=== PATIENT | female | born 1940 | race Caucasian/White ===

== ENCOUNTER → 2017-06-07 11:31 | Outpatient (CLI) | payer MEDICARE, OTHER, SELFPAY ==
[2017-06-07 14:36] LABS: Absolute Lymphocyte Count 1.19 X10^3/ul (0.83-4.51); Absolute Neutrophil Count 2.9 X10^3/uL (2.0-7.7); Basophil# 0.05 X10^3/uL; Basophil% 1.1 % (0-1); Eosinophil# 0.22 X10^3/uL; Eosinophils% 4.8 % (0-5); Hematocrit 38.9 % (37-47); Hemoglobin 12.8 g/dl (12.0-15.0); Lymphocyte # 1.19 X10^3/ul (4.0); Lymphocyte % 25.7 % (19-41); Mean Corp Hgb Conc 32.9 g/gl (32-36); Mean Corpuscular Hgb 30.6 pg (27.0-32.0); Mean Corpuscular Volume 93.1 fL (81-99); Mean Platelet Vol. 10.4 fl (6.2-12.0); Monocyte# 0.25 X10^3/uL; Monocyte% 5.4 % (0-10); Neutrophil # 2.91 X10^3/uL (2.7-7.7); Neutrophil % 62.8 % (47-70); Platelet Count 267 K/mm3 (150-450); RBC Distribution Width CV 13.2 % (11.6-14.6); RBC Distribution Width SD 44.4 fl (35.1-43.9); Red Blood Count 4.18 M/mm3 (4.2-5.4); White Blood Count 4.6 K/mm3 (4.4-11.0)
[2017-06-07 14:37] LABS: POSITIVE COUNT NO; POSITIVE DIFFERENTIAL NO; POSITIVE MORPHOLOGY NO
[2017-06-07 14:38] LABS: Erythrocyte Sedimentation Rate 11 mm/hr (0-30)
[2017-06-07 14:39] LABS: CRP < 2.90 mg/L (0.0-3.0); Rheumatoid Factor < 10.0 IU/mL (<15); Uric Acid 4.4 mg/dL (2.6-6.0)
[2017-06-07 15:02] LABS: PTHIN 48.9 pg/mL (18.4-80.1)
[2017-06-08 12:08] LABS: Anti-Centromere B Ab <0.2 AI (0.0-0.9); Anti-Chromatin <0.2 AI (0.0-0.9); Anti-Jo <0.2 AI (0.0-0.9); Anti-Scleroderma-70 AB <0.2 AI (0.0-0.9); RNP Ab <0.2 AI (0.0-0.9); SJOGREN'S Anti-SS-A test 7.4 AI (0.0-0.9); SJOGREN'S Anti-SS-B test < 0.2 AI (0.0-0.9); Smith Ab <0.2 AI (0.0-0.9)
[2017-06-08 14:10] LABS: Anti-dsDNA Ab <1 IU/mL (0-9)
== END ==
PROVIDERS: Family Provider Family Medicine; PCP Family Medicine; Visit Provider Family Medicine
DX: M06.4 Inflammatory polyarthropathy (principal)
CPT/HCPCS: 36415; 83970; 84550; 85025; 85652; 86140; 86225; 86235; 86431

== ENCOUNTER → 2017-06-08 10:39 | Outpatient (CLI) | payer MEDICARE, OTHER, SELFPAY ==
--- NOTE | 2017-06-08 13:44 | PFT ---
INTRODUCTION: The patient is a 76-year-old female currently under the care of myself the presents for pulmonary function testing secondary to a diagnosis of dyspnea on exertion. Respiratory therapy reports good patient effort and reports no other concerns. Bronchodilators were used during testing. INTERPRETATION: Forced expiration spirometry demonstrates the presence of a mild large airways obstructive ventilatory defect. There was a significant response to aerosolized bronchodilators noted. Spirograms are of fair quality and plateau gradually. The respiratory flow volume loop reveals decreased expiratory flow rates at all lung volumes consistent with airways obstruction. Body plethysmography was performed and reveals an elevated TLC and RV, indicative of underlying hyperinflation and air-trapping. Diffusing capacity by single breath CO is preserved at 76% of predicted. IMPRESSION: These pulmonary function studies demonstrate the presence of an irreversible mild large airways obstructive ventilatory defect with associated hyperinflation and air-trapping. There was a significant response to aerosolized bronchodilators. There are no previous pulmonary function studies available for comparison.
== END ==
PROVIDERS: Family Provider Family Medicine; PCP Family Medicine; Visit Provider Internal Medicine Critical Care Medicine
DX: R06.09 Other forms of dyspnea (principal)
CPT/HCPCS: 94060; 94726; 94729

== ENCOUNTER → 2017-07-28 13:18 | Outpatient (CLI) | payer MEDICARE, OTHER, SELFPAY ==
--- NOTE | 2017-07-28 13:32 | HPBI_ITS ---
MAMMOGRAPHY - BILATERAL SCREENING 3-D ELIUD SYNTHESIS REASON FOR EXAM: Female, 76 years old. Bilateral Screening 3-D tomosynthesis PERTINENT HISTORY: Implants, sister with breast cancer. TECHNIQUE: 2-D mammograms and 3-D Eliud synthesis of the breast (s) were performed. CAD was performed. COMPARISON: 07/27/2016 FINDINGS: The breast composition is heterogeneously dense that can obscure small breast masses. Scattered benign calcifications are seen. No dense spiculated masses or suspicious microcalcifications are identified. No architectural distortion is identified. There is no skin thickening or retraction. Implants are intact and free of complication There has been no significant change since the prior study. HPBI/SCREENING MAMM (CAD), BILAT IMPRESSION: No mammographic signs of malignancy. Routine yearly mammograms recommended. ASSESSMENT CATEGORY: BIRADS Category 2: Benign. A letter regarding these results will be sent to the patient by the facility within 30 days. FOLLOW UP RECOMMENDATION: Yearly follow up mammogram recommended. (A) Approximately 10% of breast cancers are not detected by mammography. A normal mammogram should not delay biopsy of a clinically suspicious abnormality. Electronically Signed: To Mariscal MD at 9:26 EDT , Service support ,
== END ==
PROVIDERS: Family Provider Family Medicine; PCP Family Medicine; Visit Provider Family Medicine
DX: Z12.31 Encounter for screening mammogram for malignant neoplasm of breast (principal)
CPT/HCPCS: 77063; 77067

== ENCOUNTER → 2017-08-07 14:30 | Outpatient (CLI) | payer MEDICARE, OTHER, SELFPAY ==
--- NOTE | 2017-08-07 14:35 | RAD_ITS ---
STUDY: X-RAY - PELVIS REASON FOR EXAM: Female, 76 years old. Bilateral hip and low back pain. TECHNIQUE: One view of the pelvis was obtained. COMPARISON: None. FINDINGS: There is a non-specific bowel gas pattern. There are faint pelvic calcifications which could be vascular. There are degenerative changes in the lower lumbar spine and levoscoliosis. Normal bilateral iliac wings, sacroiliac joints and visualized sacrum. Normal visualized bilateral superior and inferior pubic rami. Normal pubic symphysis. Normal ischial tuberosities. Normal visualized right femoral head. Normal right acetabulum. Normal right hip joint. Normal visualized left femoral head. Normal left acetabulum. There is mild articular joint space narrowing of the left hip. RAD/Pelvis 1 or 2 Views IMPRESSION: Degenerative changes in the lower lumbar spine. Mild narrowing of the left hip joint. Electronically Signed: Amado Prince MD at 3:59 EDT Tel , Service support ,
[2017-08-07 15:35] LABS: Absolute Lymphocyte Count 1.32 X10^3/ul (0.83-4.51); Absolute Neutrophil Count 2.9 X10^3/uL (2.0-7.7); Basophil# 0.03 X10^3/uL; Basophil% 0.7 % (0-1); Eosinophil# 0.17 X10^3/uL; Eosinophils% 3.7 % (0-5); Hematocrit 36.9 % (37-47); Hemoglobin 11.9 g/dl (12.0-15.0); Lymphocyte # 1.32 X10^3/ul (4.0); Lymphocyte % 28.7 % (19-41); Mean Corp Hgb Conc 32.2 g/gl (32-36); Mean Corpuscular Hgb 29.7 pg (27.0-32.0); Monocyte# 0.17 X10^3/uL; Monocyte% 3.7 % (0-10); Platelet Count 264 K/mm3 (150-450); RBC Distribution Width CV 13.2 % (11.6-14.6); RBC Distribution Width SD 44.1 fl (35.1-43.9); Red Blood Count 4.01 M/mm3 (4.2-5.4); White Blood Count 4.6 K/mm3 (4.4-11.0)
[2017-08-07 15:44] LABS: POSITIVE COUNT NO; POSITIVE DIFFERENTIAL NO; POSITIVE MORPHOLOGY NO
[2017-08-07 16:03] LABS: ALB/GLOB Ratio 1.1 RATIO (0.9-2.4); AST(SGOT) 20 U/L (15-37); Alanine Aminotransfer ALT/SGPT 23 U/L (13-56); Albumin, Serum 3.8 g/dL (3.2-5.0); Alkaline Phosphatase 66 U/L (45-117); Anion Gap 9 (5-15); BUN 14 mg/dL (7-18); BUN/Creat Ratio 16.6 RATIO (10-20); Calcium,Total 9.4 mg/dL (8.5-10.1); Chloride 104 mmol/L (98-107); Creatinine, Serum 0.84 mg/dL (0.55-1.02); EST Glomerular Filtration Rate 70 mL/min (>60); Est Glom Filt Rate - Afr Amer 84 mL/min (>60); Globulin 3.5 g/dL (2.2-4.2); Glucose 98 mg/dL (74-106); Potassium 3.8 mmol/L (3.5-5.1); Protein, Total 7.3 g/dL (6.4-8.2); Rheumatoid Factor < 10.0 IU/mL (<15); Sodium Level 142 mmol/L (136-145)
[2017-08-09 15:20] LABS: ANTINUCLEAR ANTIBODIES DIRECT Positive (Negative)
[2017-08-15 11:25] LABS: CCP IgG Antibodies 3 units (0-19); HEPATITIS B SURFACE AG Negative (Negative); HLA B27 Negative (.); Hep B Surface Antibodies Reactive (.); Hep C Antibodies <0.1 s/co ratio (0.0-0.9)
== END ==
PROVIDERS: Family Provider Family Medicine; PCP Family Medicine; Visit Provider Internal Medicine Rheumatology
DX: M06.4 Inflammatory polyarthropathy (principal); M35.00 Sjogren syndrome, unspecified; M51.37 Other intervertebral disc degeneration, lumbosacral region; E78.5 Hyperlipidemia, unspecified; J44.9 Chronic obstructive pulmonary disease, unspecified; N39.46 Mixed incontinence
CPT/HCPCS: 36415; 72170; 80053; 81374; 85025; 86038; 86200; 86431; 86706; 86803; 87340

== ENCOUNTER → 2017-10-12 07:43 | Outpatient (CLI) | payer MEDICARE, OTHER, SELFPAY ==
--- NOTE | 2017-10-12 07:43 | DT_ITS ---
This patient was seen during an EMR downtime October 09, 2017 - October 16, 2017. This patient may have a combination of paper and electronic documentation or all paper documentation. All documentation is viewable within the e-chart portion of [employer] for each patient visit.
--- NOTE | 2017-10-12 07:47 | CT_ITS ---
STUDY: CT BRAIN WITHOUT CONTRAST REASON FOR EXAM: Female, 76 years old. Chronic headache, right hemiplegia RADIATION DOSAGE (If Supplied By Facility): CTDIvol = ( 44.99 ) mGy, DLP = ( 745.49 ) mGycm TECHNIQUE: Transaxial CT imaging of the brain was performed without administration of intravenous contrast material. Individualized dose optimization techniques were used for this CT. COMPARISON: None. FINDINGS: The soft tissues are unremarkable. The osseous structures are unremarkable. Normal size ventricles and extra-axial spaces for the patient's age. The white matter tracts are unremarkable. The basal ganglia and thalami are unremarkable. No abnormalities are seen in the brainstem. The cerebellum is unremarkable. There is no intracranial hemorrhage. There are no findings of acute ischemia. The visualized sinuses are unremarkable. CT/Brain/Head without Contrast IMPRESSION: No acute intracranial abnormalities. Electronically Signed: Haleigh Freire MD at 11:37 EDT Tel Direct: [phone], Service support ,
== END ==
PROVIDERS: Family Provider Family Medicine; PCP Family Medicine; Visit Provider Family Medicine
DX: G43.409 Hemiplegic migraine, not intractable, without status migrainosus (principal)
CPT/HCPCS: 70450

== ENCOUNTER → 2017-10-16 11:02 | Outpatient (CLI) | payer MEDICARE, OTHER, SELFPAY ==
--- NOTE | 2017-10-16 11:02 | DT_ITS ---
This patient was seen during an EMR downtime October 09, 2017 - October 16, 2017. This patient may have a combination of paper and electronic documentation or all paper documentation. All documentation is viewable within the e-chart portion of [employer] (acquired by [employer] in 2014) for each patient visit.
[2017-10-16 12:30] LABS: Absolute Lymphocyte Count 1.12 X10^3/ul (0.83-4.51); Basophil# 0.01 X10^3/uL; Basophil% 0.3 % (0-1); Eosinophil# 0.16 X10^3/uL; Eosinophils% 4.6 % (0-5); Hematocrit 38.9 % (37-47); Hemoglobin 12.6 g/dl (12.0-15.0); Lymphocyte # 1.12 X10^3/ul (4.0); Lymphocyte % 32.2 % (19-41); Mean Corp Hgb Conc 32.4 g/gl (32-36); Mean Corpuscular Hgb 29.8 pg (27.0-32.0); Mean Platelet Vol. 9.7 fl (6.2-12.0); Monocyte# 0.22 X10^3/uL; Monocyte% 6.3 % (0-10); Neutrophil # 1.97 X10^3/uL (2.7-7.7); Neutrophil % 56.6 % (47-70); Platelet Count 274 K/mm3 (150-450); RBC Distribution Width SD 46.3 fl (35.1-43.9); Red Blood Count 4.23 M/mm3 (4.2-5.4); White Blood Count 3.5 K/mm3 (4.4-11.0)
[2017-10-16 12:40] LABS: POSITIVE COUNT NO; POSITIVE DIFFERENTIAL NO; POSITIVE MORPHOLOGY NO
[2017-10-16 12:58] LABS: ALB/GLOB Ratio 1.1 RATIO (0.9-2.4); AST(SGOT) 19 U/L (15-37); Alanine Aminotransfer ALT/SGPT 24 U/L (13-56); Albumin, Serum 3.9 g/dL (3.2-5.0); Alkaline Phosphatase 69 U/L (45-117); Anion Gap 7 (5-15); BUN 16 mg/dL (7-18); BUN/Creat Ratio 18.5 RATIO (10-20); Calcium,Total 8.8 mg/dL (8.5-10.1); Chloride 109 mmol/L (98-107); Creatinine, Serum 0.87 mg/dL (0.55-1.02); EST Glomerular Filtration Rate 68 mL/min (>60); Est Glom Filt Rate - Afr Amer 82 mL/min (>60); Globulin 3.5 g/dL (2.2-4.2); Glucose 84 mg/dL (74-106); Protein, Total 7.4 g/dL (6.4-8.2); Sodium Level 146 mmol/L (136-145)
== END ==
PROVIDERS: Family Provider Family Medicine; PCP Family Medicine; Visit Provider Internal Medicine Rheumatology
DX: M06.4 Inflammatory polyarthropathy (principal); M35.00 Sjogren syndrome, unspecified; M51.37 Other intervertebral disc degeneration, lumbosacral region; E78.5 Hyperlipidemia, unspecified; J44.9 Chronic obstructive pulmonary disease, unspecified; N39.46 Mixed incontinence
CPT/HCPCS: 36415; 80053; 85025

== ENCOUNTER → 2018-01-15 10:29 | Outpatient (CLI) | payer MEDICARE, OTHER, SELFPAY ==
[2018-01-15 12:43] LABS: Absolute Lymphocyte Count 1.07 X10^3/ul (0.83-4.51); Basophil# 0.02 X10^3/uL; Basophil% 0.4 % (0-1); Eosinophil# 0.21 X10^3/uL; Eosinophils% 4.5 % (0-5); Hematocrit 38.1 % (37-47); Hemoglobin 12.4 g/dl (12.0-15.0); Lymphocyte # 1.07 X10^3/ul (4.0); Lymphocyte % 22.8 % (19-41); Mean Corp Hgb Conc 32.5 g/gl (32-36); Mean Corpuscular Hgb 30.8 pg (27.0-32.0); Mean Corpuscular Volume 94.5 fL (81-99); Mean Platelet Vol. 10.4 fl (6.2-12.0); Monocyte# 0.39 X10^3/uL; Monocyte% 8.3 % (0-10); Neutrophil # 2.99 X10^3/uL (2.7-7.7); Neutrophil % 63.6 % (47-70); Platelet Count 266 K/mm3 (150-450); RBC Distribution Width CV 12.9 % (11.6-14.6); RBC Distribution Width SD 43.4 fl (35.1-43.9); Red Blood Count 4.03 M/mm3 (4.2-5.4); White Blood Count 4.7 K/mm3 (4.4-11.0)
[2018-01-15 12:58] LABS: POSITIVE COUNT NO; POSITIVE DIFFERENTIAL NO; POSITIVE MORPHOLOGY NO
[2018-01-15 13:19] LABS: ALB/GLOB Ratio 1.1 RATIO (0.9-2.4); AST(SGOT) 23 U/L (15-37); Alanine Aminotransfer ALT/SGPT 23 U/L (13-56); Albumin, Serum 3.9 g/dL (3.2-5.0); Alkaline Phosphatase 68 U/L (45-117); Anion Gap 8 (5-15); BUN 17 mg/dL (7-18); BUN/Creat Ratio 19.4 RATIO (10-20); Calcium,Total 9.2 mg/dL (8.5-10.1); Chloride 106 mmol/L (98-107); Creatinine, Serum 0.88 mg/dL (0.55-1.02); EST Glomerular Filtration Rate 67 mL/min (>60); Est Glom Filt Rate - Afr Amer 81 mL/min (>60); Globulin 3.7 g/dL (2.2-4.2); Glucose 85 mg/dL (74-106); Potassium 3.9 mmol/L (3.5-5.1); Protein, Total 7.6 g/dL (6.4-8.2); Sodium Level 142 mmol/L (136-145)
== END ==
PROVIDERS: Family Provider Family Medicine; PCP Family Medicine; Visit Provider Internal Medicine Rheumatology
DX: M06.4 Inflammatory polyarthropathy (principal); M35.00 Sjogren syndrome, unspecified; M51.37 Other intervertebral disc degeneration, lumbosacral region; E78.5 Hyperlipidemia, unspecified; J44.9 Chronic obstructive pulmonary disease, unspecified; N39.46 Mixed incontinence; Z79.899 Other long term (current) drug therapy
CPT/HCPCS: 36415; 80053; 85025

== ENCOUNTER → 2018-03-19 10:28 | Outpatient (CLI) | payer MEDICARE, OTHER, SELFPAY ==
[2018-03-19 12:18] LABS: Absolute Lymphocyte Count 1.11 X10^3/ul (0.83-4.51); Absolute Neutrophil Count 1.9 X10^3/uL (2.0-7.7); Basophil# 0.02 X10^3/uL; Basophil% 0.6 % (0-1); Eosinophil# 0.15 X10^3/uL; Eosinophils% 4.3 % (0-5); Hemoglobin 12.3 g/dl (12.0-15.0); Lymphocyte # 1.11 X10^3/ul (4.0); Lymphocyte % 31.7 % (19-41); Mean Corp Hgb Conc 31.5 g/gl (32-36); Mean Corpuscular Hgb 29.6 pg (27.0-32.0); Mean Platelet Vol. 10.1 fl (6.2-12.0); Monocyte# 0.28 X10^3/uL; Neutrophil # 1.93 X10^3/uL (2.7-7.7); Neutrophil % 55.1 % (47-70); Platelet Count 263 K/mm3 (150-450); RBC Distribution Width CV 13.4 % (11.6-14.6); RBC Distribution Width SD 45.9 fl (35.1-43.9); Red Blood Count 4.15 M/mm3 (4.2-5.4); White Blood Count 3.5 K/mm3 (4.4-11.0)
[2018-03-19 12:32] LABS: POSITIVE COUNT NO; POSITIVE DIFFERENTIAL NO; POSITIVE MORPHOLOGY NO
[2018-03-19 12:43] LABS: AST(SGOT) 21 U/L (15-37); Alanine Aminotransfer ALT/SGPT 29 U/L (13-56); Albumin, Serum 3.8 g/dL (3.2-5.0); Alkaline Phosphatase 62 U/L (45-117); Anion Gap 9 (5-15); BUN 15 mg/dL (7-18); BUN/Creat Ratio 17.3 RATIO (10-20); Calcium,Total 9.2 mg/dL (8.5-10.1); Chloride 106 mmol/L (98-107); Creatinine, Serum 0.87 mg/dL (0.55-1.02); EST Glomerular Filtration Rate 68 mL/min (>60); Est Glom Filt Rate - Afr Amer 82 mL/min (>60); Globulin 3.7 g/dL (2.2-4.2); Glucose 86 mg/dL (74-106); Potassium 4.2 mmol/L (3.5-5.1); Protein, Total 7.5 g/dL (6.4-8.2); Sodium Level 144 mmol/L (136-145)
== END ==
PROVIDERS: Family Provider Family Medicine; PCP Family Medicine; Referring Provider Internal Medicine Rheumatology; Visit Provider Internal Medicine Rheumatology
DX: M06.4 Inflammatory polyarthropathy (principal); Z79.899 Other long term (current) drug therapy; M35.00 Sjogren syndrome, unspecified; M51.37 Other intervertebral disc degeneration, lumbosacral region; E78.5 Hyperlipidemia, unspecified; J44.9 Chronic obstructive pulmonary disease, unspecified; N39.46 Mixed incontinence
CPT/HCPCS: 36415; 80053; 85025

== ENCOUNTER → 2018-04-17 09:44 | Outpatient (CLI) | payer MEDICARE, OTHER, SELFPAY ==
[2017-10-31 10:11] VITALS: BMI 23.8
--- NOTE | 2018-04-17 16:25 | PFTCOMP_ITS ---
COMPLETE PULMONARY FUNCTION TEST INTERPRETATION Brief HPI: Patient is a 77 year old female, currently under the care of myself, who presents to [facility] for complete pulmonary function tests secondary to diagnosis of COPD. Respiratory therapist reports good effort and reproducible results. Interpretation: Forced expiration spirometry shows a mild large airways obstructive ventilatory defect with an FEV1 of 81% predicted. There is no significant bronchodilator response by strict ATS criteria. Spirograms are of good quality and plateau slowly, indicating slowly emptying areas of the lungs. The respiratory flow volume loop shows decreased expiratory flow rates at all lung volumes consistent with airway obstruction. Lung volumes by body plethysmography show an elevated total lung capacity at 5.49 L, 120% predicted. All other lung volumes are increased symmetrically. Diffusion capacity by carbon monoxide is normal at 81% predicted. The airway resistance is elevated. Compared to previous pulmonary function tests from June 08, 2017, there has been no significant change. Impression: Irreversible mild large airways obstructive ventilatory defect.
--- OUTSIDE RECORDS SUMMARY | 2018-06-03 09:05 | XMS RPT_ITS ---
:1940 Author Organization OHIP Support Name Relationship Address Phone ELIA RIVERA Unavailable [address] + [place] [address] R Unavailable Unavailable Unavailable BOVLEÓN CHILDRESSRY Unavailable [address] + [place] [address] R Unavailable Unavailable Unavailable BOVMONROE ELIA Unavailable [address] + [place] [address] R Unavailable Unavailable Unavailable BOVILLE ELIA Unavailable [address] + [place] [address] R Unavailable Unavailable Unavailable BOVILLE ELIA Unavailable [address] + [place] [address] R Unavailable Unavailable Unavailable BOVILLE ELIA Unavailable [address] + [place] [address] R Unavailable Unavailable Unavailable BOVILLE ELIA Unavailable [address] + [place] [address] R Unavailable Unavailable Unavailable BOVILLE ELIA Unavailable [address] + [place] [address] R Unavailable Unavailable Unavailable BOVILLE ELIA Unavailable [address] + [place] [address] R Unavailable Unavailable Unavailable BOVILLE ELIA Unavailable [address] + [place] [address] R Unavailable Unavailable Unavailable BOVILLE ELIA Unavailable [address] + [place] [address] R Unavailable Unavailable Unavailable BOVILLE ELIA Unavailable [address] + [place] [address] R Unavailable Unavailable Unavailable BOVILLE ELIA Unavailable . + [place] [address] R Unavailable Unavailable Unavailable BOVILLE, ELIA Unavailable Unavailable + R Unavailable Unavailable Unavailable BOVILLE, ELIA Unavailable . + [place] [address] R Unavailable Unavailable Unavailable BOVILLE, ELIA Unavailable Unavailable + R Unavailable Unavailable Unavailable ASIA MARCELINO Unavailable . [phone] [place] [address] R Unavailable Unavailable Unavailable R Unavailable Unavailable Unavailable Care Team Providers Name Role Phone Kaykay Parr Attending Unavailable Perez, Ze Referring Unavailable WarrenNasir borja Attending Unavailable Warren, Nasir Referring Unavailable Jean Marie Crump D.O. Attending Unavailable Perez, Ze Referring Unavailable Jean Marie Crump D.O. Attending Unavailable Perez, Ze Primary Care Unavailable Perez, Ze Attending Unavailable Perez, Ze Primary Care Unavailable Perez, Ze Primary Care Unavailable Barnett, Fabio Attending Unavailable Kaykay Parr Attending Unavailable Perez, Ze Referring Unavailable Jean Marie Crump D.O. Attending Unavailable Jean Marie Crump D.O. Referring Unavailable Perez, Ze Attending Unavailable Perez, Ze Primary Care Unavailable Perez, Ze Referring Unavailable Kaykay Parr Attending Unavailable Perez, Ze Referring Unavailable Vellanki, Destiny Attending Unavailable Vellanki, Destiny Referring Unavailable Perez, Ze Primary Care Unavailable Perez, Ze Attending Unavailable Perez, Ze Referring Unavailable Perez, Ze Primary Care Unavailable Vellanki, Destiny Attending Unavailable Vellanki, Destiny Referring Unavailable Perez, Ze Primary Care Unavailable Jean Marie Crump D.O. Attending Unavailable Perez, Ze Referring Unavailable Vellanki, Destiny Attending Unavailable Vellanki, Destiny Referring Unavailable Perez, Ze Primary Care Unavailable Vellanki, Destiny Attending Unavailable Vellanki, Destiny Referring Unavailable Perez, Ze Primary Care Unavailable Nasir Kelley Attending Unavailable Warren, Nasir Referring Unavailable Perez, Ze Primary Care Unavailable PROBLEMS PROBLEMS DATE TYPE CONDITION / CODE ATTENDING STATUS SOURCE 05/05/2018 Unknown S93.491A - Sprain of Barnett, Fabio Active [facility] other ligament of [facility] right ankle, initial Hospital encounter / Repository S93.491A(ICD-10) 04/24/2018 Unknown R05 - Cough / Parr, Active [facility] R05(ICD-10) [facility] Repository 04/24/2018 Unknown R09.82 - Postnasal Parr, Active [facility] drip / R09.82(ICD-10) [facility] Repository 04/26/2018 Unknown J44.9 - Chronic W[place] Nasir Active [facility] obstructive pulmonary Community disease, unspecified Hospital / J44.9(ICD-10) Repository 03/19/2018 Unknown 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 / Community M06.4(ICD-10) Hospital Repository 03/19/2018 Unknown M35.00 - Sicca Destiny Caban Active [facility] syndrome, unspecified Community / M35.00(ICD-10) Hospital Repository 03/19/2018 Unknown M51.37 - Other Destiny Caban Active [facility] intervertebral disc Community degeneration, Hospital lumbosacral region / Repository M51.37(ICD-10) 03/19/2018 Unknown E78.5 - Destiny Caban Active [facility] Hyperlipidemia, Community unspecified / Hospital E78.5(ICD-10) Repository 03/19/2018 Unknown 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 Community exposure to Hospital environmental tobacco Repository smoke (acute) (chronic) / Z77.22(ICD-10) 06/08/2017 Unknown R06.09 - Other forms Jean Marie Crump Active [facility] of dyspnea / D.O. Community R06.09(ICD-10) Hospital Repository 05/31/2017 Unknown A31.0 - Pulmonary Jean Marie Crump, Active [facility] mycobacterial D.O. Community infection / Hospital A31.0(ICD-10) Repository PROCEDURES PROCEDURES No Procedure Records FoundRESULTS RESULTS EMERGENCY DEPARTMENT Observed: 05/05/2018 Status: F Source: [facility] SUMMARY 8:06 PM [facility] HOSPITAL REPOSITORY [facility] Medical Records Department [address] [place] [address] Emergency Department Summary 05/05/181917 MR#: [id number] Acct: [id number] Name: BENJY RIVERA Rep #: [id number] : 1940 77 From: Fabio Barnett MD PCP: Ze Perez MD Status: REG ER - ER Visit Summary Date of Service: 05/05/18 Chief Complaint: Pain right ankle and foot status post plantar inversion mechanism injury History of Present Illness: The patient is a 77 F who had a plantar inversion mechanism injury and complains of lateral right lower extremity pain that she localizes over the ankle/foot. She denies prior history of trauma. She is unable to bear weight. She states she took 2 Tylenol with no effect. She denies paresthesia, anesthesia motor weakness. Physical Examination: Vital signs noted and blood pressure is slightly elevated 123/88. DP and PT pulses are palpable. There is pain palpation over the distal 3 cm of the lateral malleolus. Is no pain the patient over the medial malleolus. Is elected with drawer testing. There is pain abrasion over the anterior talofibular ligament. There is no pain the patient base of fifth metatarsal. Test Results: Three-view x-ray of the ankle was interpreted by me as negative for fracture, subluxation or dislocation. There is no evidence of fracture at the base of the fifth metatarsal either. Emergency Department Course and Treatment: Patient was medicated with Zofran 4 mg ODT and 1 [place] tablet. X-ray was obtained to evaluate for fracture. Treatment Plan: Antiemetic, oral analgesia and Aircast Disposition: Discharged to home Impression: Anterior talofibular ligament right ankle sprain This note was generated with ID Watchdog dictation software. It may contain incorrect words, spelling, and punctuation that were not noted in review of the chart prior to signing ED Disposition - Plan for ED Patient: Disposition: Home or Assisted Living Chief Complaint: Lower Extremity Injury Instructions: ED Sprain Ankle W X Ray Prescriptions: Hydrocodone Bitart/Apap 5-325 [[place] 5MG-325MG] 1 tab PO Q6H PRN PRN 3 Days #10 tab PRN Reason: Pain Ondansetron [Zofran Odt] 4 mg PO Q8H PRN PRN #10 tab PRN Reason: Nausea Referrals: Ze Perez MD [Primary Care Provider] - 1 Week if not improving Additional Instructions: Apply ice 6-8 times a day for 20-30 minutes for the next 2- 3 days. Remove the Aircast to draw the alphabet with your foot 4-6 times a day for the next 5- 7 days. What to do if you have Problems For any increased pain, shortness of breath, bleeding, nausea or vomiting, chest pain, or any unexpected problems, contact your Primary Care Provider. Call [facility] ([phone]) or report to the closest Emergency Room. Call 911 if necessary. 05/05/182005 <Electronically signed by Fabio Barnett MD> Date Fabio Barnett MD Cosigner Signature (If Indicated): Date CC: Ze Perez MD ANKLE MIN 3 VIEWS Observed: 05/05/2018 Status: F Source: [place] 7:13 PM [facility] REPOSITORY [facility] Imaging Services [address] [place] [address] Ankle min 3 Views MR#: [id number] Acct: [id number] Name: BENJY RIVERA Rep #: [id number] : 1940 F 77 From: Armando Ramirez MD PCP: Ze Perez MD Status: REG ER Study: Ankle min 3 Views Date of Exam: 05/05/18 Exam# [id number] Ordering Dr: Fabio Barnett MD STUDY: X-RAY - RIGHT ANKLE REASON FOR EXAM: Female, 77 years old. Fall. Pain. TECHNIQUE: 3 view(s) of the ankle. COMPARISON: None. FINDINGS: Normal visualized distal tibia and fibula. Normal medial and lateral malleoli. Normal tibiotalar articulation and ankle mortise. Normal visualized talus and calcaneus. The visualized subtalar, talonavicular, calcaneocuboid and tarsal articulations are normal. The soft tissue structures are unremarkable. RAD/Ankle min 3 Views IMPRESSION: No acute abnormality. Electronically Signed: Armando Ramirez MD at 21:05 EST , Service support , CC: Ze Perez MD; Fabio Barnett MD [employer] Faculty Member: Signed PULMONARY VISIT REPORT Observed: 04/24/2018 Status: F Source: [place] 10:24 AM [facility] REPOSITORY [facility] of [address] [place] [address] OFFICE VISIT Date of Service: 04/24/18 MR#: [id number] Acct: [id number] Name: BENJY RIVERA Rep #: [id number] : 1940 Provider: Kaykay Parr Age/Sex: 77/F Location: [facility].PM[facility] Status: Signed Assessment AND Plan 1. Stage 1 mild COPD by GOLD classification J44.9 Plan Does not appear to be an exacerbation of COPD today. No need for prednisone or antibiotic. Continue current maintenance medication. No additional testing at this time. Contact the office for any new or worsening symptoms. An acute visit and typically be arranged within 1-2 days. Follow-up in 6 months. No influenza vaccination current. 2. PND (post-nasal drip) R09.82 Plan Postnasal drip present on exam, patient states that she deals with this quite regularly. Encouraged to try Flonase [id number], she declined at this time. Hendricks's performed in the office today to rule out the possibility that prednisone may be necessary to help treat this cough. Plan Detail Other Orders Orders: Follow Up 6 Months (DMB) HPI 6 M FU: Chief Complaint: Shortness of breath on exertion HPI Comments Details: This is a 77 year old F, currently under the care of Ze Perez MD, here today to review test results. She presents to the office today ambulatory and currently in room air. She has not required any antibiotics or prednisone for any breathing problems. She states that she had a cold a few weeks ago but was able to overcome the cold without being seen by the physician or requiring medications. She has not been to the ED or urgent care for respiratory illnesses. She continues to experience shortness of breath on exertion only, denies any shortness of breath with rest or conversation. This has not worsened in any degree. She has an occasional nonproductive cough, denies any sputum production or hemoptysis. She denies any wheezing, chest tightness, chest pain or palpitations. She is not experience any fever, chills or body aches. She is compliant with the alto daily. She has not felt the need to use her Ventolin rescue inhaler. She states that her shortness of breath on exertion completely resolved with a few moments of rest. She has not tried any [id number] medications to treat her symptoms. She does report that recently when she put her Sp tree up she noticed that getting the Sp tree and decorations out of storage caused some type of irritation which increased the frequency of her cough. She did not use any additional medications for this more frequent cough. She did not use her Ventolin inhaler. I personally reviewed the tests/images/tracings which showed: Complete Pulmonary Function test were preformed on April 17, 2018, and showed FVC of 97% of predicted, FEV1 of 80% of predicted, FEV1/FVC ratio of 61 % of predicted , TLC of 120% of predicted, RV of 148% of predicted, DLCO 81 percent of predicted. The test was interpreted to be consistent with irreversible mild large airway obstructive ventilatory defect. Intake Vital Signs04/24/18 Height 5 ft 5 in 04/24/18 Weight: 146 lb Intake Visit Reasons: 6 M FU Accompanied by: Self Allergies prochlorperazine [From Compazine] Allergy (Severe, Verified 04/24/18 09:32) Other - unable to breathe Sulfa (Sulfonamide Antibiotics) Allergy (Mild, Verified 04/24/18 09:32) Nausea prescription pain meds Allergy (Mild, Uncoded 04/24/18 09:32) Nausea/Vom/Diarrhea/Lightheadedness codeine phosphate Allergy (Unknown, Uncoded 04/24/18 09:32) Unknown Medications acetylcysteine (bulk) powder See Rx Instructions MISCELLANEOUS BID g 05/24/17 [History Confirmed 04/24/18] ascorbic acid (vitamin C) 500 mg capsule 250 mg PO QDAY ea 05/24/17 [History Confirmed 04/24/18] calcium citrate 200 mg (950 mg) tablet 200 mg PO BID tab 05/24/17 [History Confirmed 04/24/18] cholecalciferol (vitamin D3) 1,000 unit capsule 1,000 unit PO ONCE 05/24/17 [History Confirmed 04/24/18] famciclovir 125 mg tablet 125 mg PO BID 05/24/17 [History Confirmed 04/24/18] magnesium oxide 400 mg capsule 400 mg PO QDAY cap 05/24/17 [History Confirmed 04/24/18] pravastatin 20 mg tablet 20 mg PO QHS 05/24/17 [History Confirmed 04/24/18] tolterodine ER 4 mg capsule,extended release 24 hr 4 mg PO QDAY 05/24/17 [History Confirmed 04/24/18] albuterol sulfate HFA 90 mcg/actuation aerosol inhaler 2 puff INHALATION Q4H PRN #18 g 06/29/17 [Rx Confirmed 04/24/18] methotrexate sodium 2.5 mg tablet 15 mg PO QWEEK tab 10/31/17 [History Confirmed 04/24/18] tiotropium 2.5 mcg-olodaterol 2.5 mcg/actuation mist for inhalation 2 puff INHALATION Q24H #4 g 10/31/17 [Rx Confirmed 04/24/18] leucovorin calcium 15 mg tablet 15 mg PO .Q Monday tab 11/07/17 [History Confirmed 04/24/18] PFS Medical History Secondhand smoke exposure (Chronic) Atypical mycobacterial infection of lung (Resolved) CAMEJO (dyspnea on exertion) (Chronic) Atypical mycobacterial infection (Acute) Caregiver stress (Acute) Myalgia and myositis (Acute) Right upper quadrant pain (Acute) COPD (chronic obstructive pulmonary disease) (Chronic) Hypercholesteremia (Chronic) Irritable bowel syndrome with constipation (Chronic) Lactose intolerance (Chronic) Lumbar degenerative disc disease (Chronic) Osteopenia (Chronic) Surgical History D AND C (Resolved) H/O breast biopsy (Resolved) H/O colonoscopy (Resolved) H/O laminectomy (Resolved) H/O total hysterectomy (Resolved) History of lung biopsy (Resolved) History of tonsillectomy (Resolved) Family History Grandmother Hypertension CHF (congestive heart failure) Daughter cardiac ablation Grandfather Lung cancer Alcohol abuse Father Alcohol abuse Lung cancer Sister CAD (coronary artery disease) Brother Suicide Son Suicide HCV (hepatitis C virus) IV drug user Aunt Heart disease Breast cancer Bladder cancer Uncle Heart disease Hypertension Cancer Mother Bladder cancer Brother CAD (coronary artery disease) Brother Heart disease Hypertension Diabetes Alcohol abuse Anger Sister Hypertension Heart disease Breast cancer Arthritis Anger Sister Breast cancer Bladder cancer Son Diabetes Heart disease Son Hypertension Daughter Rheumatoid arthritis Migraine Sister Hypertension CVA (cerebral vascular accident) 2015 Migraine Social History pets and animals: Yes pets and animals: dog(s) Smoking Status: Never smoker alcohol intake: current alcohol intake frequency: holidays/special occasions only Alcohol type: wine substance use type: does not use Review of Systems Const CONSTITUTIONAL: Negative anorexia, body ache, chills, daytime sleepiness, fever(s), night sweats, oral thrush, stops breathing during sleep, weight loss, sleeping in chair, fatigue, weight loss, weight gain, frequent colds, seasonal allergies, other, headache(s) or orthopnea EETM Ear Nose Throat Mouth: Positive hoarseness, nasal discharge and post nasal drip; negative hard of hearing, hearing normal, dry mouth in morning, change in vision, itchy eyes, eye pain, swallowing Difficulty, ear pain, nose bleed, headache(s), mouth pain, nasal congestion, sinus pain, sinus pressure, sore throat or other Cardio Cardiovascular: Negative chest pain, chest pain at rest, chest pain with activity, irregular heart rhythm, edema, shortness of breath when lying down, palpitations, murmur or other Resp Respiratory: Positive as per HPI, shortness of breath shortness of breath: Positive with activity and cough cough: Positive non-productive; negative pain with cough, wheezing, chest congestion, chest tightness, pain on inspiration, inhalers, increase use of rescue inhalers, snoring, apnea or other Gastro Gastrointestional: Negative bloody stools, change in appetite, difficulty swallowing, reflux, hematemesis, melena stool, loose stool, constipation or other Genitourinary: Negative blood in urine, nocturia, pain with urination or other Musc Musculoskeletal: Negative body pain, back pain, neck pain or other Skin/Breast Skin/Breast: Negative dry skin, itching, rash, unusual bruising, breast lump or other Neuro Neurological: Negative restless legs, confusion, weakness or other Psych Psychocological: Positive anxiety; negative abnormal sleep pattern, thoughts of hurting self/others, hopelessness or other Lymph Lymphatic: Negative easy bleeding, easy bruising, swollen lymph nodes or other Exam Const Constitutional: Positive conversant, cooperative, in no acute respiratory distress, healthy appearing, well developed, well nourished and good hygiene Head Head: Positive normocephalic and atraumatic; negative cyanosis of lips/distal nose Eyes Eye: Positive clear conjunctiva; negative nystagmus or scleral abnormality Ears Ear: Positive external ears normal; negative hard of hearing or hearing normal Nose Nose: Positive external nose normal and no nasal discharge; negative epistaxis Mouth Mouth: Positive post nasal drip, oral mucosae normal, no lesions, good dentition and crowded posterior oropharynx; negative malodorous breath or oral thrush present Mallampati Score: III: Mallampati Score Neck Neck: Positive normal visual inspection, full ROM and trachea midline; negative lymphadenopathy, JVD or tender Chest Wall Chest: Positive normal inspection of the chest and symmetric chest movement; negative increased A/P diameter Resp lung sounds: Positive clear to auscultation, good air exchange, normal expiratory time and normal respiratory effort; negative diminished, wheezes, rhonchi, rales, dullness to percussion or wheeze present on forced exhalation Cardio Cardiac: Positive regular rate, regular rhythm, S1 normal and S2 normal; negative murmur GI GI: Positive normal to inspection; negative distended Genitourinary: Positive deferred Musc Musculoskeletal: Positive steady gait and ROM normal; negative kyphosis or scoliosis Skin Pulmonary Skin Exam: Positive intact; negative rash or lesion Pulses Pulse: Yes pulses normal x4 extremities Extremities Extremities: Yes capillary refill normal, No clubbing, No cyanosis, No edema Neuro Neurologic: Yes conversant, Yes no focal neuro deficits, Yes normal concentration, Yes understands questions, Yes cooperative, Yes normal cognition, Yes normal coordination, No tremor Lymph Lymphatic: No lymphadenopathy, No tenderness, No cervical adenopathy Psych Appearance: Positive grossly normal, eye contact and well kempt Mental Status: Positive mental status grossly normal Mood: Positive congruent mood Affect: Positive normal affect Office Procedures NIOX NIOX Result NIOX: 14 Coding Level of Care Code Off vis,est,level 3 Diagnoses Stage 1 mild COPD by GOLD classification J44.9 PND (post-nasal drip) R09.82 04/24/18 1024 <Electronically signed by Kaykay GOULDC> Date Kaykay Parr NP-C Cosigner Signature: Date (if applicable) CC: Ze Perez MD PULMONARY FUNCTION Observed: 04/18/2018 Status: F Source: [place] REPORT COMP 5:52 AM [facility] REPOSITORY [facility] Pulmonary Services/Neurology [facility] [place] [address] MR#: [id number] Acct: [id number] Name: BENJY RIVERA Rep #: [id number] : 1940 77 From: Nasir Kleley MD Referring Dr: Nasir Kelley MD Status: REG CLI Ordering Dr: Date: Location: [facility] Sex: F C COMPLETE PULMONARY FUNCTION TEST INTERPRETATION Brief HPI: Patient is a 77 year old female, currently under the care of myself, who presents to [facility] for complete pulmonary function tests secondary to diagnosis of COPD. Respiratory therapist reports good effort and reproducible results. Interpretation: Forced expiration spirometry shows a mild large airways obstructive ventilatory defect with an FEV1 of 81% predicted. There is no significant bronchodilator response by strict ATS criteria. Spirograms are of good quality and plateau slowly, indicating slowly emptying areas of the lungs. The respiratory flow volume loop shows decreased expiratory flow rates at all lung volumes consistent with airway obstruction. Lung volumes by body plethysmography show an elevated total lung capacity at 5.49 L, 120% predicted. All other lung volumes are increased symmetrically. Diffusion capacity by carbon monoxide is normal at 81% predicted. The airway resistance is elevated. Compared to previous pulmonary function tests from June 08, 2017, there has been no significant change. Impression: Irreversible mild large airways obstructive ventilatory defect. 04/18/18 0552 <Electronically signed by Nasir Kelley MD> Date Nasir Kelley MD CC: Nasir Kelley MD; Ze Perez MD Date Dictated: 04/17/181622 Date Transcribed: 04/17/181622 [employer] Faculty Member: CARLOS ENRIQUE Signed CBC W/DIFF, AUTOMATED Collected: 03/19/2018 Status: F Source: [place] 10:39 AM [facility] REPOSITORY TYPE CODE TESTS RESULT OUT OF RANGE REFERENCE UNITS LAB L100.1000 4.4-11.0 K/mm3 Low WBC 3.5 LAB L100.1200 4.2-5.4 M/mm3 Low RBC 4.15 LAB L100.1300 12.0-15.0 g/dl Normal HGB 12.3 LAB L100.1400 37-47 % Normal HCT 39.0 LAB L100.1500 81-99 fL Normal MCV 94.0 LAB L100.1600 27.0-32.0 pg Normal MCH 29.6 LAB L100.1700 32-36 g/gl Low MCHC 31.5 LAB L100.1810 11.6-14.6 % Normal RDW CV 13.4 LAB L100.1820 35.1-43.9 fl High RDW SD 45.9 LAB L100.1900 150-450 K/mm3 Normal PLT 263 LAB L100.2000 6.2-12.0 fl Normal MPV 10.1 LAB L100.2100 47-70 % Normal NEUT% 55.1 LAB L100.2200 19-41 % Normal LY% 31.7 LAB L100.2300 0-10 % Normal MONO% 8.0 LAB L100.2400 0-5 % Normal EO% 4.3 LAB L100.2500 0-1 % Normal BASO% 0.6 LAB L100.2550 0.0-0.9 % Normal IM GRAN % 0.300 Result Comment: IG% - Immature Granulocytes (promyelocytes, myelocytes and metamyelocytes) > 1% indicates that a LEFT SHIFT is Present. LAB L100.2620 2.0-7.7 X10 3/uL Low Absolute Neut 1.9 LAB L100.2720 0.83-4.51 X10 3/ul Normal Absolute Lymph 1.11 Performed By: #### L100.0100 #### [facility] [address] [place], [address] COMPREHENSIVE METABOLIC Collected: 03/19/2018 Status: F Source: [facility] 10:39 AM [facility] REPOSITORY TYPE CODE TESTS RESULT OUT OF RANGE REFERENCE UNITS LAB L501.0100 74-106 mg/dL Normal GLU 86 Result Comment: Please note revised GLUCOSE reference range effective 2017. LAB L501.1000 7-18 mg/dL Normal BUN 15 LAB L501.1100 0.55-1.02 mg/dL Normal CREAT,SERUM 0.87 Result Comment: The validity of the calculated GFR AND GFRAA in patients over 70 years has not been determined. Clinical correlation is essential. LAB L501.1110 >60 mL/min Normal EST GFR 68 Result Comment: Non- GFR Calc LAB L501.1115 >60 mL/min Normal EST GFR - AA 82 Result Comment: GFR Calc LAB L501.1300 10-20 RATIO Normal BUN/CRE 17.3 LAB L501.1500 6.4-8.2 g/dL T Normal PROT 7.5 LAB L501.1800 3.2-5.0 g/dL Normal ALB 3.8 LAB L501.1950 2.2-4.2 g/dL Normal GLOB 3.7 LAB L501.2000 0.9-2.4 RATIO Normal A/G 1.0 LAB L501.2200 8.5-10.1 mg/dL CA Normal 9.2 LAB L501.4100 15-37 U/L Normal AST 21 LAB L501.4305 45-117 U/L Normal ALK P 62 LAB L501.4405 13-56 U/L Normal ALT 29 LAB L501.4600 0.20-1.00 mg/dL T Normal BILI 0.50 LAB L501.5300 136-145 mmol/L NA Normal 144 LAB L501.5600 3.5-5.1 mmol/L K Normal 4.2 LAB L501.5900 98-107 mmol/L CL Normal 106 LAB L501.6100 21.0-32.0 mmol/L Normal CO2 29.0 LAB L501.6200 5-15 Normal GAP 9 Performed By: #### L500.4050 #### [facility] [place] [address], [address] CBC W/DIFF, AUTOMATED Collected: 01/15/2018 Status: F Source: [place] 10:36 AM [facility] REPOSITORY TYPE CODE TESTS RESULT OUT OF RANGE REFERENCE UNITS LAB L100.1000 4.4-11.0 K/mm3 Normal WBC 4.7 LAB L100.1200 4.2-5.4 M/mm3 Low RBC 4.03 LAB L100.1300 12.0-15.0 g/dl Normal HGB 12.4 LAB L100.1400 37-47 % Normal HCT 38.1 LAB L100.1500 81-99 fL Normal MCV 94.5 LAB L100.1600 27.0-32.0 pg Normal MCH 30.8 LAB L100.1700 32-36 g/gl Normal MCHC 32.5 LAB L100.1810 11.6-14.6 % Normal RDW CV 12.9 LAB L100.1820 35.1-43.9 fl Normal RDW SD 43.4 LAB L100.1900 150-450 K/mm3 Normal PLT 266 LAB L100.2000 6.2-12.0 fl Normal MPV 10.4 LAB L100.2100 47-70 % Normal NEUT% 63.6 LAB L100.2200 19-41 % Normal LY% 22.8 LAB L100.2300 0-10 % Normal MONO% 8.3 LAB L100.2400 0-5 % Normal EO% 4.5 LAB L100.2500 0-1 % Normal BASO% 0.4 LAB L100.2550 0.0-0.9 % Normal IM GRAN % 0.400 Result Comment: IG% - Immature Granulocytes (promyelocytes, myelocytes and metamyelocytes) > 1% indicates that a LEFT SHIFT is Present. LAB L100.2620 2.0-7.7 X10 3/uL Normal Absolute Neut 3.0 LAB L100.2720 0.83-4.51 X10 3/ul Normal Absolute Lymph 1.07 Performed By: #### L100.0100 #### [facility] [address] [place], [address] COMPREHENSIVE METABOLIC Collected: 01/15/2018 Status: F Source: [place] [facility] 10:36 AM [facility] REPOSITORY TYPE CODE TESTS RESULT OUT OF RANGE REFERENCE UNITS LAB L501.0100 74-106 mg/dL Normal GLU 85 Result Comment: Please note revised GLUCOSE reference range effective 2017. LAB L501.1000 7-18 mg/dL Normal BUN 17 LAB L501.1100 0.55-1.02 mg/dL Normal CREAT,SERUM 0.88 Result Comment: The validity of the calculated GFR AND GFRAA in patients over 70 years has not been determined. Clinical correlation is essential. LAB L501.1110 >60 mL/min Normal EST GFR 67 Result Comment: Non- GFR Calc LAB L501.1115 >60 mL/min Normal EST GFR - AA 81 Result Comment: GFR Calc LAB L501.1300 10-20 RATIO Normal BUN/CRE 19.4 LAB L501.1500 6.4-8.2 g/dL T Normal PROT 7.6 LAB L501.1800 3.2-5.0 g/dL Normal ALB 3.9 LAB L501.1950 2.2-4.2 g/dL Normal GLOB 3.7 LAB L501.2000 0.9-2.4 RATIO Normal A/G 1.1 LAB L501.2200 8.5-10.1 mg/dL CA Normal 9.2 LAB L501.4100 15-37 U/L Normal AST 23 LAB L501.4305 45-117 U/L Normal ALK P 68 LAB L501.4405 13-56 U/L Normal ALT 23 LAB L501.4600 0.20-1.00 mg/dL T Normal BILI 0.50 LAB L501.5300 136-145 mmol/L NA Normal 142 LAB L501.5600 3.5-5.1 mmol/L K Normal 3.9 LAB L501.5900 98-107 mmol/L CL Normal 106 LAB L501.6100 21.0-32.0 mmol/L Normal CO2 28.0 LAB L501.6200 5-15 Normal GAP 8 Performed By: #### L500.4050 #### [facility] [address] [place], [address] PULMONARY VISIT REPORT Observed: 10/31/2017 Status: F Source: [place] 10:48 AM [facility] REPOSITORY [facility] [address] [place] [address] OFFICE VISIT Date of Service: 10/31/17 MR#: [id number] Acct: [id number] Name: BENJY RIVERA Rep #: [id number] : 1940 Provider: Jean Marie Crump D.O. Age/Sex: 76/F Location: [facility].PMW Status: Signed Assessment AND Plan 1. 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 This will be continued without change. Refills will be sent to her pharmacy accordingly. The patient will be continued on albuterol on an as-needed basis. Recommend repeating pulmonary function testing in May - June 2018. The patient has been advised to call this office with any worsening in her breathing quality and/or increased reliance on her short acting beta agonist. Orders Orders: 2. 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 Plan Detail Other Medications Refilled: tiotropium-olodaterol 2.5-2.5 mcg/actuation (Stiolto Respimat) 2 puffs Inhalation Q24H administer at approximately the same time(s) each day Follow Up 6 Months (CSM) HPI HPI Comments Details: The patient is a 76-year-old female who presents to the clinic today for a routine scheduled follow-up office visit. If you recall, the patient reported that approximately 9 years ago she was evaluated by Dr. Escamilla (Pulmonary) in [place] after she developed chest discomfort and shortness of breath. Subsequent workup included chest imaging which reportedly revealed shadowing in her upper lung britton. This prompted the patient to undergo needle biopsy along with bronchoscopy, which per account, led to a diagnosis of a MAC infection. The patient received a prolonged treatment course with subsequent resolution of the infection noted. She was supposed to follow-up but her became ill and she never did so. She does not recall ever having been told that she had underlying lung disease or parenchymal abnormalities like bronchiectasis. The patient has lived in [place] her entire life. 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 Although she is a lifelong non-smoker herself, she does report significant secondhand smoke exposure over her lifetime. Pulmonary function testing completed in June 2017 revealed evidence of a partially reversible mild large airways obstructive ventilatory defect with associated hyperinflation and air trapping. At her last follow-up office visit, the patient was started on Stiolto. Since that time, she has not had to utilize her albuterol metered-dose inhaler. She continues to endorse only a mild degree of dyspnea with strenuous physical exertion. She is currently on methotrexate in treatment for underlying rheumatoid arthritis. She does overall feel that her breathing quality has improved somewhat since being started on dual bronchodilator therapy. She denies the presence of a cough, chest tightness or wheezing. Her weight has been stable. She has not been evaluated in the emergency department or urgent care clinic since her last office visit with us for breathing related issues. Intake Vital Signs10/31/17 Height 5 ft 5 in 10/31/17 Weight: 143 lb Intake Visit Reasons: 3 M FU Chief Complaint: shortness of breath on exertion Orange Grower Required: No Accompanied by: Self Is patient in pain?: No Allergies prochlorperazine [From Compazine] Allergy (Severe, Verified 10/31/17 10:16) Other - unable to breathe Sulfa (Sulfonamide Antibiotics) Allergy (Mild, Verified 10/31/17 10:16) Nausea prescription pain meds Allergy (Mild, Uncoded 10/31/17 10:16) Nausea/Vom/Diarrhea/Lightheadedness codeine phosphate Allergy (Unknown, Uncoded 10/31/17 10:16) Unknown Medications acetylcysteine (bulk) powder See Label Instructions MISCELLANEOUS BID g 05/24/17 [History Confirmed 10/31/17] ascorbic acid (vitamin C) 500 mg capsule 250 mg PO QDAY ea 05/24/17 [History Confirmed 10/31/17] calcium citrate 200 mg (950 mg) tablet 200 mg PO BID tab 05/24/17 [History Confirmed 10/31/17] cholecalciferol (vitamin D3) 1,000 unit capsule 1,000 unit PO ONCE 05/24/17 [History Confirmed 10/31/17] famciclovir 125 mg tablet 125 mg PO BID 05/24/17 [History Confirmed 10/31/17] magnesium oxide 400 mg capsule 400 mg PO QDAY cap 05/24/17 [History Confirmed 10/31/17] pravastatin 20 mg tablet 20 mg PO QHS 05/24/17 [History Confirmed 10/31/17] tolterodine ER 4 mg capsule,extended release 24 hr 4 mg PO QDAY 05/24/17 [History Confirmed 10/31/17] albuterol sulfate HFA 90 mcg/actuation aerosol inhaler 2 puff INHALATION Q4H PRN #18 g 06/29/17 [Rx Confirmed 10/31/17] methotrexate sodium 2.5 mg tablet 15 mg PO QWEEK tab 10/31/17 [History Confirmed 10/31/17] tiotropium 2.5 mcg-olodaterol 2.5 mcg/actuation mist for inhalation 2 puff INHALATION Q24H #4 g 10/31/17 [Rx Confirmed 10/31/17] PFSH Medical History Secondhand smoke exposure (Chronic) Atypical mycobacterial infection of lung (Resolved) CAMEJO (dyspnea on exertion) (Chronic) Atypical mycobacterial infection (Acute) Caregiver stress (Acute) Myalgia and myositis (Acute) Right upper quadrant pain (Acute) COPD (chronic obstructive pulmonary disease) (Chronic) Hypercholesteremia (Chronic) Irritable bowel syndrome with constipation (Chronic) Lactose intolerance (Chronic) Lumbar degenerative disc disease (Chronic) Osteopenia (Chronic) Surgical History D AND C (Resolved) H/O breast biopsy (Resolved) H/O colonoscopy (Resolved) H/O laminectomy (Resolved) H/O total hysterectomy (Resolved) History of lung biopsy (Resolved) History of tonsillectomy (Resolved) Family History Grandmother Hypertension CHF (congestive heart failure) Daughter cardiac ablation Grandfather Lung cancer Alcohol abuse Father Alcohol abuse Lung cancer Sister CAD (coronary artery disease) Brother Suicide Son Suicide HCV (hepatitis C virus) IV drug user Aunt Heart disease Breast cancer Bladder cancer Uncle Heart disease Hypertension Cancer Mother Bladder cancer Brother CAD (coronary artery disease) Brother Heart disease Hypertension Diabetes Alcohol abuse Anger Sister Hypertension Heart disease Breast cancer Arthritis Anger Sister Breast cancer Bladder cancer Son Diabetes Heart disease Son Hypertension Daughter Rheumatoid arthritis Migraine Sister Hypertension CVA (cerebral vascular accident) 2015 Migraine Social History pets and animals: Yes pets and animals: dog(s) Smoking Status: Never smoker alcohol intake: current alcohol intake frequency: holidays/special occasions only Alcohol type: wine substance use type: does not use Review of Systems Const CONSTITUTIONAL: Negative anorexia, body ache, chills, daytime sleepiness, fever(s), night sweats, oral thrush, stops breathing during sleep, weight loss, sleeping in chair, fatigue, weight loss, weight gain, frequent colds, seasonal allergies, other, headache(s) or orthopnea EETM Ear Nose Throat Mouth: Positive hearing normal and sore throat; negative hard of hearing, hoarseness, dry mouth in morning, change in vision, itchy eyes, eye pain, swallowing Difficulty, ear pain, nose bleed, headache(s), mouth pain, nasal congestion, nasal discharge, post nasal drip, sinus pain, sinus pressure or other Cardio Cardiovascular: Negative chest pain, chest pain at rest, chest pain with activity, irregular heart rhythm, edema, shortness of breath when lying down, palpitations, murmur or other Resp Respiratory: Positive as per HPI, shortness of breath shortness of breath: Positive with activity, cough cough: Positive non-productive and inhalers; negative pain with cough, wheezing, chest congestion, chest tightness, pain on inspiration, increase use of rescue inhalers, snoring, apnea or other Gastro Gastrointestional: Negative bloody stools, change in appetite, difficulty swallowing, reflux, hematemesis, melena stool, loose stool, constipation or other Genitourinary: Negative blood in urine, nocturia, pain with urination or other Musc Musculoskeletal: Negative body pain, back pain, neck pain or other Skin/Breast Skin/Breast: Negative dry skin, itching, rash, unusual bruising, breast lump or other Neuro Neurological: Negative restless legs, confusion, weakness or other Psych Psychocological: Negative abnormal sleep pattern, anxiety, thoughts of hurting self/others, hopelessness or other Lymph Lymphatic: Negative easy bleeding, easy bruising, swollen lymph nodes or other Exam Const Constitutional: Positive conversant, cooperative, in no acute respiratory distress, well developed, well nourished and good hygiene Head Head: Positive normocephalic and atraumatic; negative cyanosis of lips/distal nose Eyes Eye: Positive clear conjunctiva; negative nystagmus or scleral abnormality Ears Ear: Positive hearing normal and external ears normal; negative hard of hearing Nose Nose: Positive external nose normal; negative epistaxis Mouth Mouth: Positive oral mucosae normal and posterior oropharynx is adequate; negative no lesions or post nasal drip Mallampati Score: II: Mallampati Score Neck Neck: Positive normal visual inspection and trachea midline; negative lymphadenopathy Chest Wall Chest: Positive symmetric chest movement Normal AP diameter. Resp lung sounds: Positive clear to auscultation and good air exchange; negative wheezes, rhonchi or rales Cardio Cardiac: Positive regular rate, regular rhythm, S1 normal and S2 normal; negative rub, gallop or murmur GI GI: Positive normal bowel sounds Soft without distention Genitourinary: Positive deferred Musc Musculoskeletal: Positive steady gait Skin Pulmonary Skin Exam: Positive intact; negative lesion, ulcers, dermal atrophy or rash Pulses Pulse: Yes Pedal pulses present: Extremities Extremities: No clubbing, No cyanosis, No edema Neuro Neurologic: Yes conversant, Yes no focal neuro deficits, Yes cooperative Lymph Lymphatic: No lymphadenopathy Psych Appearance: Positive grossly normal Mental Status: Positive mental status grossly normal Mood: Positive congruent mood Affect: Positive normal affect Coding Level of Care Code Off vis,est,level 3 Diagnoses Stage 1 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 This patient may have a combination of paper and electronic documentation or all paper documentation. All documentation is viewable within the e-chart portion of [facility] for each patient visit. DOWNTIME REPORT Observed: 10/26/2017 Status: F Source: [place] 11:47 AM [facility] Medical Records Department [address] [place] [address] Downtime Report MR#: [id number] Acct: [id number] Name: BENJY RIVERA Rep #: [id number] : 1940 76 From: Paolo Ramirez PCP: Ze Perez MD Status: REG CLI This patient was seen during an EMR downtime October 09, 2017 - October 16, 2017. This patient may have a combination of paper and electronic documentation or all paper documentation. All documentation is viewable within the e-chart portion of [facility] for each patient visit. CBC W/DIFF, AUTOMATED Collected: 10/16/2017 Status: F Source: [place] 11:09 AM [facility] REPOSITORY TYPE CODE TESTS RESULT OUT OF RANGE REFERENCE UNITS LAB L100.1000 4.4-11.0 K/mm3 Low WBC 3.5 LAB L100.1200 4.2-5.4 M/mm3 Normal RBC 4.23 LAB L100.1300 12.0-15.0 g/dl Normal HGB 12.6 LAB L100.1400 37-47 % Normal HCT 38.9 LAB L100.1500 81-99 fL Normal MCV 92.0 LAB L100.1600 27.0-32.0 pg Normal MCH 29.8 LAB L100.1700 32-36 g/gl Normal MCHC 32.4 LAB L100.1810 11.6-14.6 % Normal RDW CV 14.0 LAB L100.1820 35.1-43.9 fl High RDW SD 46.3 LAB L100.1900 150-450 K/mm3 Normal PLT 274 LAB L100.2000 6.2-12.0 fl Normal MPV 9.7 LAB L100.2100 47-70 % Normal NEUT% 56.6 LAB L100.2200 19-41 % Normal LY% 32.2 LAB L100.2300 0-10 % Normal MONO% 6.3 LAB L100.2400 0-5 % Normal EO% 4.6 LAB L100.2500 0-1 % Normal BASO% 0.3 LAB L100.2550 0.0-0.9 % Normal IM GRAN % 0.000 Result Comment: IG% - Immature Granulocytes (promyelocytes, myelocytes and metamyelocytes) > 1% indicates that a LEFT SHIFT is Present. LAB L100.2620 2.0-7.7 X10 3/uL Normal Absolute Neut 2.0 LAB L100.2720 0.83-4.51 X10 3/ul Normal Absolute Lymph 1.12 Performed By: #### L100.0100 #### [facility] [address] [place], [place], [address] COMPREHENSIVE METABOLIC Collected: 10/16/2017 Status: F Source: [facility] 11:09 AM [facility] REPOSITORY TYPE CODE TESTS RESULT OUT OF RANGE REFERENCE UNITS LAB L501.0100 74-106 mg/dL Normal GLU 84 Result Comment: Please note revised GLUCOSE reference range effective 2017. LAB L501.1000 7-18 mg/dL Normal BUN 16 LAB L501.1100 0.55-1.02 mg/dL Normal CREAT,SERUM 0.87 Result Comment: The validity of the calculated GFR AND GFRAA in patients over 70 years has not been determined. Clinical correlation is essential. LAB L501.1110 >60 mL/min Normal EST GFR 68 Result Comment: Non- GFR Calc LAB L501.1115 >60 mL/min Normal EST GFR - AA 82 Result Comment: GFR Calc LAB L501.1300 10-20 RATIO Normal BUN/CRE 18.5 LAB L501.1500 6.4-8.2 g/dL T Normal PROT 7.4 LAB L501.1800 3.2-5.0 g/dL Normal ALB 3.9 LAB L501.1950 2.2-4.2 g/dL Normal GLOB 3.5 LAB L501.2000 0.9-2.4 RATIO Normal A/G 1.1 LAB L501.2200 8.5-10.1 mg/dL CA Normal 8.8 LAB L501.4100 15-37 U/L Normal AST 19 LAB L501.4305 45-117 U/L Normal ALK P 69 LAB L501.4405 13-56 U/L Normal ALT 24 LAB L501.4600 0.20-1.00 mg/dL T Normal BILI 0.50 LAB L501.5300 136-145 mmol/L High NA 146 LAB L501.5600 3.5-5.1 mmol/L K Normal 4.0 LAB L501.5900 98-107 mmol/L High CL 109 LAB L501.6100 21.0-32.0 mmol/L Normal CO2 30.0 LAB L501.6200 5-15 Normal GAP 7 Performed By: #### L500.4050 #### [facility] [address] [place], [address] BRAIN/HEAD WITHOUT Observed: 10/12/2017 Status: F Source: [place] CONTRAST 7:47 AM [facility] REPOSITORY [facility] Imaging Services [address] [place] [address] Brain/Head without Contrast MR#: [id number] Acct: [id number] Name: BENJY RIVERA Rep #: [id number] : 1940 F 76 From: Haleigh Freire MD PCP: Ze Perez MD Status: REG CLI Study: Brain/Head without Contrast Date of Exam: 10/12/17 Exam# [id number] Ordering Dr: Ze Perez MD STUDY: CT BRAIN WITHOUT CONTRAST REASON FOR EXAM: Female, 76 years old. Chronic headache, right hemiplegia RADIATION DOSAGE (If Supplied By Facility): CTDIvol = ( 44.99 ) mGy, DLP = ( 745.49 ) mGycm TECHNIQUE: Transaxial CT imaging of the brain was performed without administration of intravenous contrast material. Individualized dose optimization techniques were used for this CT. COMPARISON: None. FINDINGS: The soft tissues are unremarkable. The osseous structures are unremarkable. Normal size ventricles and extra-axial spaces for the patient's age. The white matter tracts are unremarkable. The basal ganglia and thalami are unremarkable. No abnormalities are seen in the brainstem. The cerebellum is unremarkable. There is no intracranial hemorrhage. There are no findings of acute ischemia. The visualized sinuses are unremarkable. CT/Brain/Head without Contrast IMPRESSION: No acute intracranial abnormalities. Electronically Signed: Haleigh Frerie MD at 11:37 EDT Tel Direct: [phone], Service support , CC: Ze Perez MD [employer] Faculty Member: Signed PELVIS 1 OR 2 VIEWS Observed: 08/07/2017 Status: F Source: [place] 2:36 PM [facility] REPOSITORY [facility] Imaging Services [address] [place] [address] Pelvis 1 or 2 Views MR#: [id number] Acct: [id number] Name: BENJY RIVERA Rep #: [id number] : 1940 F 76 From: Amado Prince MD PCP: Ze Perez MD Status: REG CLI Study: Pelvis 1 or 2 Views Date of Exam: 08/07/17 Exam# [id number] Ordering Dr: Destiny Caban MD STUDY: X-RAY - PELVIS REASON FOR EXAM: Female, 76 years old. Bilateral hip and low back pain. TECHNIQUE: One view of the pelvis was obtained. COMPARISON: None. FINDINGS: There is a non-specific bowel gas pattern. There are faint pelvic calcifications which could be vascular. There are degenerative changes in the lower lumbar spine and levoscoliosis. Normal bilateral iliac wings, sacroiliac joints and visualized sacrum. Normal visualized bilateral superior and inferior pubic rami. Normal pubic symphysis. Normal ischial tuberosities. Normal visualized right femoral head. Normal right acetabulum. Normal right hip joint. Normal visualized left femoral head. Normal left acetabulum. There is mild articular joint space narrowing of the left hip. RAD/Pelvis 1 or 2 Views IMPRESSION: Degenerative changes in the lower lumbar spine. Mild narrowing of the left hip joint. Electronically Signed: Amado Prince MD at 3:59 EDT Tel , Service support , CC: Ze Perez MD; Destiny Caban MD [employer] Faculty Member: Signed CBC W/DIFF, AUTOMATED Collected: 08/07/2017 Status: F Source: [place] 2:35 PM [facility] REPOSITORY TYPE CODE TESTS RESULT OUT OF RANGE REFERENCE UNITS LAB L100.1000 4.4-11.0 K/mm3 Normal WBC 4.6 LAB L100.1200 4.2-5.4 M/mm3 Low RBC 4.01 LAB L100.1300 12.0-15.0 g/dl Low HGB 11.9 LAB L100.1400 37-47 % Low HCT 36.9 LAB L100.1500 81-99 fL Normal MCV 92.0 LAB L100.1600 27.0-32.0 pg Normal MCH 29.7 LAB L100.1700 32-36 g/gl Normal MCHC 32.2 LAB L100.1810 11.6-14.6 % Normal RDW CV 13.2 LAB L100.1820 35.1-43.9 fl High RDW SD 44.1 LAB L100.1900 150-450 K/mm3 Normal PLT 264 LAB L100.2000 6.2-12.0 fl Normal MPV 10.0 LAB L100.2100 47-70 % Normal NEUT% 63.0 LAB L100.2200 19-41 % Normal LY% 28.7 LAB L100.2300 0-10 % Normal MONO% 3.7 LAB L100.2400 0-5 % Normal EO% 3.7 LAB L100.2500 0-1 % Normal BASO% 0.7 LAB L100.2550 0.0-0.9 % Normal IM GRAN % 0.200 Result Comment: IG% - Immature Granulocytes (promyelocytes, myelocytes and metamyelocytes) > 1% indicates that a LEFT SHIFT is Present. LAB L100.2620 2.0-7.7 X10 3/uL Normal Absolute Neut 2.9 LAB L100.2720 0.83-4.51 X10 3/ul Normal Absolute Lymph 1.32 Performed By: #### L100.0100 #### [facility] [address] [place], [place], [address] COMPREHENSIVE METABOLIC Collected: 08/07/2017 Status: F Source: [facility] 2:35 PM [facility] REPOSITORY TYPE CODE TESTS RESULT OUT OF RANGE REFERENCE UNITS LAB L501.0100 74-106 mg/dL Normal GLU 98 Result Comment: Please note revised GLUCOSE reference range effective 2017. LAB L501.1000 7-18 mg/dL Normal BUN 14 LAB L501.1100 0.55-1.02 mg/dL Normal CREAT,SERUM 0.84 Result Comment: The validity of the calculated GFR AND GFRAA in patients over 70 years has not been determined. Clinical correlation is essential. LAB L501.1110 >60 mL/min Normal EST GFR 70 Result Comment: Non- GFR Calc LAB L501.1115 >60 mL/min Normal EST GFR - AA 84 Result Comment: GFR Calc LAB L501.1300 10-20 RATIO Normal BUN/CRE 16.6 LAB L501.1500 6.4-8.2 g/dL T Normal PROT 7.3 LAB L501.1800 3.2-5.0 g/dL Normal ALB 3.8 LAB L501.1950 2.2-4.2 g/dL Normal GLOB 3.5 LAB L501.2000 0.9-2.4 RATIO Normal A/G 1.1 LAB L501.2200 8.5-10.1 mg/dL CA Normal 9.4 LAB L501.4100 15-37 U/L Normal AST 20 LAB L501.4305 45-117 U/L Normal ALK P 66 LAB L501.4405 13-56 U/L Normal ALT 23 Result Comment: Please note revised ALT reference range effective 2017. LAB L501.4600 0.20-1.00 mg/dL Normal T BILI 0.20 LAB L501.5300 136-145 mmol/L Normal NA 142 LAB L501.5600 3.5-5.1 mmol/L Normal K 3.8 LAB L501.5900 98-107 mmol/L Normal CL 104 LAB L501.6100 21.0-32.0 mmol/L Normal CO2 29.0 LAB L501.6200 5-15 Normal GAP 9 Performed By: #### L500.4050, L505.7010 #### [facility] [address], [place], [address] RHEUMATOID FACTOR Collected: 08/07/2017 Status: F Source: [place] 2:35 PM [facility] REPOSITORY TYPE CODE TESTS RESULT OUT OF RANGE REFERENCE UNITS LAB L505.7010 <15 IU/mL Normal RHEUMATOID FAC < 10.0 Performed By: #### L500.4050, L505.7010 #### [facility] [address], [place], [address] ANTINUCLEAR ANTIBODIES Collected: 08/07/2017 Status: F Source: [facility] DIRECT 2:35 PM [facility] REPOSITORY TYPE CODE TESTS RESULT OUT OF REFERENCE UNITS RANGE LAB L3100.5475 Negative High Positive ALEXYS-DIRECT Result Comment: Performed at: [facility] [id number] Senior Systems Software Engineer: Shaun Nicholson PhD, Phone: [phone] Performed By: #### L3100.5475 #### [facility] (refer to report for specific site) refer to report for address and phone number HEPATITIS B SURFACE Collected: 08/07/2017 Status: F Source: KASI AG 2:35 PM [facility] REPOSITORY TYPE CODE TESTS RESULT OUT OF RANGE REFERENCE UNITS LAB L3100.0400 Negative Normal HB Negative SURF AG Result Comment: Performed at: [facility] [id number] Senior Systems Software Engineer: Shaun Nicholson PhD, Phone: [phone] Performed at: 2Q - [facility] [address] [place], [place] [id number] Senior Systems Software Engineer: Luis Reynoso PhD, Phone: [phone] Performed at: BN - [facility] [place] [address] [place], [place] [id number] Senior Systems Software Engineer: José Miguel Tuttle MD, Phone: [phone] Performed By: #### L3100.0390, L3100.0528, L3100.0625, L3410.1400, L4600.0100 #### [facility] (refer to report for specific site) refer to report for address and phone number HEP B SURFACE Collected: 08/07/2017 Status: F Source: KASI ANTIBODIES 2:35 PM [facility] REPOSITORY TYPE CODE TESTS RESULT OUT OF RANGE REFERENCE UNITS LAB L3100.0528 . Normal Hep B Reactive Sharon AB Result Comment: Non Reactive: Inconsistent with immunity, less than 10 mIU/mL Reactive: Consistent with immunity, greater than 9.9 mIU/mL Performed By: #### L3100.0390, L3100.0528, L3100.0625, L3410.1400, L4600.0100 #### [facility] (refer to report for specific site) refer to report for address and phone number HEPATITIS C ANTIBODIES Collected: 08/07/2017 Status: F Source: KASI 2:35 PM [facility] REPOSITORY TYPE CODE TESTS RESULT OUT OF RANGE REFERENCE UNITS LAB L3100.0650 0.0-0.9 s/co ratio Normal HEP C AB <0.1 Result Comment: Negative: < 0.8 Indeterminate: 0.8 - 0.9 Positive: > 0.9 The CDC recommends that a positive HCV antibody result be followed up with a HCV Nucleic Acid Amplification test (026537). Performed By: #### L3100.0390, L3100.0528, L3100.0625, L3410.1400, L4600.0100 #### [facility] (refer to report for specific site) refer to report for address and phone number HLA B27 Collected: 08/07/2017 Status: F Source: KASI 2:35 PM [facility] REPOSITORY TYPE CODE TESTS RESULT OUT OF RANGE REFERENCE UNITS LAB L3410.1500 . Normal HLA Negative B27 Result Comment: HLA-B*27 Negative B27 allele interpretation for all loci based on IMGT/HLA database version 3.27 This test was developed and its performance characteristics determined by [facility]. It has not been cleared or approved by the Food and Drug Administration. [facility] CLIA ID Number [id number] This test was performed using PCR (Polymerase Chain Reaction)/SSOP (Sequence Specific Oligonucleotide Probes) technique. SBT (Sequence Based Typing) and/or SSP (Sequence Specific Primers) may be used as supplemental methods when necessary. Please contact [facility] Customer Service at if you have any questions. Director of [facility] Laboratory Dr Luis Reynoso, PhD Performed By: #### L3100.0390, L3100.0528, L3100.0625, L3410.1400, L4600.0100 #### [facility] (refer to report for specific site) refer to report for address and phone number CCP IGG ANTIBODIES Collected: 08/07/2017 Status: F Source: [place] 2:35 PM [facility] REPOSITORY TYPE CODE TESTS RESULT OUT OF RANGE REFERENCE UNITS LAB L4600.0100 0-19 units Normal ANTI-CCP 3 [id number] Result Comment: Negative <20 Weak positive 20 - 39 Moderate positive 40 - 59 Strong positive >59 Performed By: #### L3100.0390, L3100.0528, L3100.0625, L3410.1400, L4600.0100 #### [facility] (refer to report for specific site) refer to report for address and phone number PULMONARY VISIT REPORT Observed: 07/31/2017 Status: F Source: [place] 12:11 PM [facility] REPOSITORY [facility] [place] [facility] [address] [place] [address] OFFICE VISIT Date of Service: 07/31/17 MR#: [id number] Acct: [id number] Name: NICOLEBENJY K Rep #: [id number] : 1940 Provider: Kaykay Parr Age/Sex: 76/F Location: [facility].PMW Status: Signed Assessment AND Plan 1. 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 Given hyperinflation and air trapping on her pulmonary function tests, will start her on a LAMA/LABA maintenance inhaler. Sample of Stiolto provided in the office today, she was personally instructed on how to use the device and first dose was administered in the office. She was supplied with 1 month worth of free inhaler. She has been encouraged to contact the office after 2 weeks of trialing the inhaler to give us an update on how she is feeling. Follow-up with Dr. Crump in 3 months. No additional testing at this time. Written instructions provided to her on when to use the device. Orders Orders: 2. CAMEJO (dyspnea on exertion) R06.09 Status Chronic Plan Dyspnea on exertion possibly attributed to hyperinflation and air trapping from her mild COPD. Starting her on a new inhaler. Plan to follow-up with Dr. Crump in 3 months to assess her response to this medication. She has also been encouraged to contact the office if she has any new or worsening symptoms in the meantime. Plan Detail Other Medications New: tiotropium-olodaterol 2.5-2.5 mcg/actuation (Stiolto Respimat) 2 puffs Inhalation Q24H administer at approximately the same time(s) each day Follow Up 3 Months (DMB) HPI 1 M FU: Chief Complaint: shortness of breath on exertion HPI Comments Details: This patient presents to the office today to follow- up on her shortness of breath on exertion. She is ambulatory and currently on room air. At the last office visit she was ordered an albuterol rescue inhaler, and given instructions to try this inhaler when she experiences shortness of breath on exertion. Over the past month she has used the inhaler several times. She did not feel relief of her shortness of breath, in fact after using the inhaler she felt what she described as discomfort in the midsternal area. She points to the area she is describing. She has not tried any [id number] products or remedies for her shortness of breath on exertion. Currently, she continues to have some shortness of breath on exertion. It has not changed since her last office visit. It has not improved but it has not worsened. She does have an occasional dry cough. She also reports some occasional mild sinus pressure, but denies any sinus drainage. She reports experiencing some fatigue at this time, but attributes this to taking care of many sick family members. He denies any sputum production or hemoptysis. She denies any wheezing, chest tightness, chest pain or palpitations. She denies any lower extremity edema. See complete review of systems. Intake Vital Signs07/31/17 Height 5 ft 5 in 07/31/17 Weight: 143 lb Intake Visit Reasons: 1 M FU Chief Complaint: shortness of breath on exertion Allergies prochlorperazine [From Compazine] Allergy (Severe, Verified 06/29/17 09:04) Other - unable to breathe Sulfa (Sulfonamide Antibiotics) Allergy (Mild, Verified 06/29/17 09:04) Nausea prescription pain meds Allergy (Mild, Uncoded 06/29/17 09:04) Nausea/Vom/Diarrhea/Lightheadedness codeine phosphate Allergy (Unknown, Uncoded 06/29/17 09:04) Unknown Medications acetylcysteine (bulk) powder See Label Instructions MISCELLANEOUS BID g 05/24/17 [History Confirmed 06/29/17] ascorbic acid (vitamin C) 500 mg capsule 250 mg PO QDAY ea 05/24/17 [History Confirmed 06/29/17] baicalin-catechin 500 mg capsule 2 cap PO BID cap 05/24/17 [History Confirmed 06/29/17] calcium citrate 200 mg (950 mg) tablet 200 mg PO BID tab 05/24/17 [History Confirmed 06/29/17] cholecalciferol (vitamin D3) 1,000 unit capsule 1,000 unit PO ONCE 05/24/17 [History Confirmed 06/29/17] famciclovir 125 mg tablet 125 mg PO BID 05/24/17 [History Confirmed 06/29/17] magnesium oxide 400 mg capsule 400 mg PO QDAY cap 05/24/17 [History Confirmed 06/29/17] pravastatin 20 mg tablet 20 mg PO QHS 05/24/17 [History Confirmed 06/29/17] tolterodine ER 4 mg capsule,extended release 24 hr 4 mg PO QDAY 05/24/17 [History Confirmed 06/29/17] albuterol sulfate HFA 90 mcg/actuation aerosol inhaler 2 puff INHALATION Q4H PRN #18 g 06/29/17 [Rx Confirmed 06/29/17] tiotropium 2.5 mcg-olodaterol 2.5 mcg/actuation mist for inhalation 2 puff INHALATION Q24H #4 g 07/31/17 [Rx Confirmed 07/31/17] COUNT INCLUDES THE [facility] Medical History Secondhand smoke exposure (Chronic) Atypical mycobacterial infection of lung (Resolved) CAMEJO (dyspnea on exertion) (Chronic) Atypical mycobacterial infection (Acute) Caregiver stress (Acute) Myalgia and myositis (Acute) Right upper quadrant pain (Acute) COPD (chronic obstructive pulmonary disease) (Chronic) Hypercholesteremia (Chronic) Irritable bowel syndrome with constipation (Chronic) Lactose intolerance (Chronic) Lumbar degenerative disc disease (Chronic) Osteopenia (Chronic) Surgical History D AND C (Resolved) H/O breast biopsy (Resolved) H/O colonoscopy (Resolved) H/O laminectomy (Resolved) H/O total hysterectomy (Resolved) History of lung biopsy (Resolved) History of tonsillectomy (Resolved) Family History Grandmother Hypertension CHF (congestive heart failure) Daughter cardiac ablation Grandfather Lung cancer Alcohol abuse Father Alcohol abuse Lung cancer Sister CAD (coronary artery disease) Brother Suicide Son Suicide HCV (hepatitis C virus) IV drug user Aunt Heart disease Breast cancer Bladder cancer Uncle Heart disease Hypertension Cancer Mother Bladder cancer Brother CAD (coronary artery disease) Brother Heart disease Hypertension Diabetes Alcohol abuse Anger Sister Hypertension Heart disease Breast cancer Arthritis Anger Sister Breast cancer Bladder cancer Son Diabetes Heart disease Son Hypertension Daughter Rheumatoid arthritis Migraine Sister Hypertension CVA (cerebral vascular accident) 2015 Migraine Social History pets and animals: Yes pets and animals: dog(s) Smoking Status: Never smoker alcohol intake: current alcohol intake frequency: holidays/special occasions only Alcohol type: wine substance use type: does not use Review of Systems Const CONSTITUTIONAL: Positive fatigue; negative anorexia, body ache, chills, daytime sleepiness, fever(s), night sweats, oral thrush, stops breathing during sleep, weight loss, sleeping in chair, weight loss, weight gain, frequent colds, seasonal allergies, other, headache(s) or orthopnea EETM Ear Nose Throat Mouth: Positive hearing normal and sinus pressure; negative hard of hearing, hoarseness, dry mouth in morning, change in vision, itchy eyes, eye pain, swallowing Difficulty, ear pain, nose bleed, headache(s), mouth pain, nasal congestion, nasal discharge, post nasal drip, sinus pain, sore throat or other Cardio Cardiovascular: Negative chest pain, chest pain at rest, chest pain with activity, irregular heart rhythm, edema, shortness of breath when lying down, palpitations, murmur or other Resp Respiratory: Positive as per HPI, shortness of breath shortness of breath: Positive with activity and cough cough: Positive non-productive; negative pain with cough, wheezing, chest congestion, chest tightness, pain on inspiration, inhalers, increase use of rescue inhalers, snoring, apnea or other Gastro Gastrointestional: Negative bloody stools, change in appetite, difficulty swallowing, reflux, hematemesis, melena stool, loose stool, constipation or other Genitourinary: Negative blood in urine, nocturia, pain with urination or other Musc Musculoskeletal: Negative body pain, back pain, neck pain or other Skin/Breast Skin/Breast: Negative dry skin, itching, rash, unusual bruising, breast lump or other Neuro Neurological: Negative restless legs, confusion, weakness or other Psych Psychocological: Negative abnormal sleep pattern, anxiety, thoughts of hurting self/others, hopelessness or other Lymph Lymphatic: Negative easy bleeding, easy bruising, swollen lymph nodes or other Exam Const Constitutional: Positive conversant, cooperative, in no acute respiratory distress, healthy appearing, well developed, well nourished and good hygiene Head Head: Positive normocephalic and atraumatic; negative cyanosis of lips/distal nose Eyes Eye: Positive clear conjunctiva and nystagmus; negative scleral abnormality Ears Ear: Positive hearing normal and external ears normal; negative hard of hearing Nose Nose: Positive external nose normal and septum normal; negative epistaxis Mouth Mouth: Positive oral mucosae normal, no lesions, good dentition and posterior oropharynx is adequate; negative post nasal drip, malodorous breath or oral thrush present Mallampati Score: II: Mallampati Score Neck Neck: Positive normal visual inspection, full ROM and trachea midline; negative lymphadenopathy, JVD or tender Chest Wall Chest: Positive normal inspection of the chest and symmetric chest movement; negative increased A/P diameter Resp lung sounds: Positive clear to auscultation, good air exchange, normal expiratory time and normal respiratory effort; negative diminished, wheezes, rhonchi, rales, dullness to percussion or wheeze present on forced exhalation Cardio Cardiac: Positive regular rate, regular rhythm, S1 normal and S2 normal; negative murmur GI GI: Positive normal to inspection and normal bowel sounds; negative distended Genitourinary: Positive deferred Musc Musculoskeletal: Positive steady gait and ROM normal; negative kyphosis or scoliosis Skin Pulmonary Skin Exam: Positive intact; negative rash, lesion, ulcers, erythema, scaly or dermal atrophy Pulses Pulse: Yes pulses normal x4 extremities Extremities Extremities: Yes capillary refill normal, No clubbing, No cyanosis, No edema Neuro Neurologic: Yes conversant, Yes no focal neuro deficits, Yes cooperative, Yes normal cognition, Yes normal coordination, Yes normal concentration, Yes understands questions, No tremor Lymph Lymphatic: No lymphadenopathy, No tenderness, No cervical adenopathy, No axillary adenopathy Psych Appearance: Positive grossly normal, eye contact and well kempt Mental Status: Positive mental status grossly normal Mood: Positive congruent mood Affect: Positive normal affect Office Procedures Inhaler Training Inhaler Training Procedure performed by: Kaykay Parr Inhaler Training: Yes personally trained on inhaler use, sample provided, first dose given in the office, expresses understanding and continue to monitor Coding Level of Care Code Off vis,est,level 4 Diagnoses Stage 1 mild COPD by GOLD classification J44.9 CAMEJO (dyspnea on exertion) R06.09 07/31/17 1211 <Electronically signed by Kaykay JENSEN> Date Kaykay JENSEN Cosigner Signature: Date (if applicable) CC: SCREENING MAMM (CAD), Observed: 07/28/2017 Status: F Source: [facility]ASI IBRAHIM 1:34 PM [facility] REPOSITORY [facility] [place] [address] SCREENING MAMM (CAD), BILAT MR#: [id number] Acct: [id number] Name: BENJY RIVERA Rep #: [id number] : 1940 F 76 From: John Mariscal MD PCP: Ze Perez MD Status: REG CLI Study: SCREENING MAMM (CAD), BILAT Date of Exam: 07/28/17 Exam# [id number] Ordering Dr: Ze Perez MD MAMMOGRAPHY - BILATERAL SCREENING 3-D MANUEL SYNTHESIS REASON FOR EXAM: Female, 76 years old. Bilateral Screening 3-D tomosynthesis PERTINENT HISTORY: Implants, sister with breast cancer. TECHNIQUE: 2-D mammograms and 3-D Manuel synthesis of the breast (s) were performed. CAD was performed. COMPARISON: 07/27/2016 FINDINGS: The breast composition is heterogeneously dense that can obscure small breast masses. Scattered benign calcifications are seen. No dense spiculated masses or suspicious microcalcifications are identified. No architectural distortion is identified. There is no skin thickening or retraction. Implants are intact and free of complication There has been no significant change since the prior study. HPBI/SCREENING MAMM (CAD), BILAT IMPRESSION: No mammographic signs of malignancy. Routine yearly mammograms recommended. ASSESSMENT CATEGORY: BIRADS Category 2: Benign. A letter regarding these results will be sent to the patient by the facility within 30 days. FOLLOW UP RECOMMENDATION: Yearly follow up mammogram recommended. (A) Approximately 10% of breast cancers are not detected by mammography. A normal mammogram should not delay biopsy of a clinically suspicious abnormality. Electronically Signed: To Mariscal MD at 9:26 EDT , Service support , CC: Ze Perez MD Human [employer] Faculty Member: Signed PULMONARY VISIT REPORT Observed: 06/29/2017 Status: F Source: [place] 11:57 AM [facility] [address] [place] [address] OFFICE VISIT Date of Service: 06/29/17 MR#: [id number] Acct: [id number] Name: BENJY RIVERA Rep #: [id number] : 1940 Provider: Kaykay Parr Age/Sex: 76/F Location: [facility].PMW Status: Signed Assessment AND Plan 1. Stage 1 mild COPD by GOLD classification J44.9 Status Chronic Plan Reviewed recent pulmonary function tests indicate that the patient has a mild obstructive ventilatory defect, mild COPD. She does have air-trapping and hyperinflation testing, however she is not experiencing shortness of breath that is limiting her activities. At this time I am going to place her on a trial of albuterol rescue inhaler to be used prior to activities that may cause her exertion. She expresses understanding and is agreeable. We will follow-up in 1 month to determine if this has given her relief of her symptoms. Plan Detail Other Medications New: albuterol sulfate HFA 90 mcg/actuation (Vento2 puffs Inhalation Q4H PRN shortness of ashley dain HFA) th or wheezing Follow Up 1 Month (CSM) HPI 1 M FU: Chief Complaint: shortness of breath on exertion HPI Comments Details: This is a 76 year old very pleasant f, currently under the care of Ze Perez, here today to review test results. I personally reviewed the tests/images/tracings which showed: Complete Pulmonary Function test were preformed on June 26, 2017, and showed FVC of 101 % of predicted, FEV1 of 79 % of predicted, FEV1/FVC ratio of 59 %, TLC of 122 % of predicted, RV of 155 % of predicted, DLCO 76% of predicted. The test was interpreted to be consistent with mild obstructive ventilatory defect with hyperinflation and air trapping, with a significant response to bronchodilators and a symmetric reduction in diffusing capacity. Currently, currently on room air. She complains of mild shortness of breath with exertion. She denies any shortness of breath during conversation or at rest. She denies any wheezing or chest tightness. He does not currently have a rescue inhaler, is not currently on any maintenance medications. She denies any cough, sputum production or hemoptysis. She denies any fever, chills or body aches. Denies any easy bruising or weight change. Has not been seen in the ED urgent care for any respiratory problems since her last office visit. She has not required any treatment of antibiotics or prednisone since her last office visit either. Intake Vital Signs06/29/17 Height 5 ft 5 in 06/29/17 Weight: 140 lb Intake Visit Reasons: 1 M FU Accompanied by: Self Allergies prochlorperazine [From Compazine] Allergy (Severe, Verified 06/29/17 09:04) Other - unable to breathe Sulfa (Sulfonamide Antibiotics) Allergy (Mild, Verified 06/29/17 09:04) Nausea prescription pain meds Allergy (Mild, Uncoded 06/29/17 09:04) Nausea/Vom/Diarrhea/Lightheadedness codeine phosphate Allergy (Unknown, Uncoded 06/29/17 09:04) Unknown Medications acetylcysteine (bulk) powder See Label Instructions MISCELLANEOUS BID g 05/24/17 [History Confirmed 06/29/17] ascorbic acid (vitamin C) 500 mg capsule 250 mg PO QDAY ea 05/24/17 [History Confirmed 06/29/17] baicalin-catechin 500 mg capsule 2 cap PO BID cap 05/24/17 [History Confirmed 06/29/17] calcium citrate 200 mg (950 mg) tablet 200 mg PO BID tab 05/24/17 [History Confirmed 06/29/17] cholecalciferol (vitamin D3) 1,000 unit capsule 1,000 unit PO ONCE 05/24/17 [History Confirmed 06/29/17] famciclovir 125 mg tablet 125 mg PO BID 05/24/17 [History Confirmed 06/29/17] magnesium oxide 400 mg capsule 400 mg PO QDAY cap 05/24/17 [History Confirmed 06/29/17] pravastatin 20 mg tablet 20 mg PO QHS 05/24/17 [History Confirmed 06/29/17] tolterodine ER 4 mg capsule,extended release 24 hr 4 mg PO QDAY 05/24/17 [History Confirmed 06/29/17] albuterol sulfate HFA 90 mcg/actuation aerosol inhaler 2 puff INHALATION Q4H PRN #18 g 06/29/17 [Rx Confirmed 06/29/17] COUNT INCLUDES THE [facility] Medical History Secondhand smoke exposure (Chronic) Atypical mycobacterial infection of lung (Resolved) CAMEJO (dyspnea on exertion) (Chronic) Atypical mycobacterial infection (Acute) Caregiver stress (Acute) Myalgia and myositis (Acute) Right upper quadrant pain (Acute) COPD (chronic obstructive pulmonary disease) (Chronic) Hypercholesteremia (Chronic) Irritable bowel syndrome with constipation (Chronic) Lactose intolerance (Chronic) Lumbar degenerative disc disease (Chronic) Osteopenia (Chronic) Surgical History D AND C (Resolved) H/O breast biopsy (Resolved) H/O colonoscopy (Resolved) H/O laminectomy (Resolved) H/O total hysterectomy (Resolved) History of lung biopsy (Resolved) History of tonsillectomy (Resolved) Family History Grandmother Hypertension CHF (congestive heart failure) Daughter cardiac ablation Grandfather Lung cancer Alcohol abuse Father Alcohol abuse Lung cancer Sister CAD (coronary artery disease) Brother Suicide Son Suicide HCV (hepatitis C virus) IV drug user Aunt Heart disease Breast cancer Bladder cancer Uncle Heart disease Hypertension Cancer Mother Bladder cancer Brother CAD (coronary artery disease) Brother Heart disease Hypertension Diabetes Alcohol abuse Anger Sister Hypertension Heart disease Breast cancer Arthritis Anger Sister Breast cancer Bladder cancer Son Diabetes Heart disease Son Hypertension Daughter Rheumatoid arthritis Migraine Sister Hypertension CVA (cerebral vascular accident) 2015 Migraine Social History pets and animals: Yes pets and animals: dog(s) Smoking Status: Never smoker alcohol intake: current alcohol intake frequency: holidays/special occasions only Alcohol type: wine substance use type: does not use Review of Systems Const CONSTITUTIONAL: Positive body ache; negative anorexia, chills, daytime sleepiness, fever(s), night sweats, oral thrush, stops breathing during sleep, weight loss, sleeping in chair, fatigue, weight loss, weight gain, frequent colds, seasonal allergies, other, headache(s) or orthopnea EETM Ear Nose Throat Mouth: Positive hearing normal; negative hard of hearing, hoarseness, dry mouth in morning, change in vision, itchy eyes, eye pain, swallowing Difficulty, ear pain, nose bleed, headache(s), mouth pain, nasal congestion, nasal discharge, post nasal drip, sinus pain, sinus pressure, sore throat or other Cardio Cardiovascular: Negative chest pain, chest pain at rest, chest pain with activity, irregular heart rhythm, edema, shortness of breath when lying down, palpitations, murmur or other Resp Respiratory: Positive as per HPI and cough; negative shortness of breath, pain with cough, wheezing, chest congestion, chest tightness, pain on inspiration, inhalers, increase use of rescue inhalers, snoring, apnea or other Gastro Gastrointestional: Negative bloody stools, change in appetite, difficulty swallowing, reflux, hematemesis, melena stool, loose stool, constipation or other Genitourinary: Negative blood in urine, nocturia, pain with urination or other Musc Musculoskeletal: Positive back pain; negative body pain, neck pain or other Skin/Breast Skin/Breast: Positive dry skin; negative itching, rash, unusual bruising, breast lump or other Neuro Neurological: Negative restless legs, confusion, weakness or other Psych Psychocological: Negative abnormal sleep pattern, anxiety, thoughts of hurting self/others, hopelessness or other Lymph Lymphatic: Positive easy bruising; negative easy bleeding, swollen lymph nodes or other Exam Const Constitutional: Positive conversant, cooperative, in no acute respiratory distress, healthy appearing, well developed, well nourished and good hygiene Head Head: Positive normocephalic and atraumatic; negative cyanosis of lips/distal nose Eyes Eye: Positive clear conjunctiva and nystagmus; negative scleral abnormality Ears Ear: Positive hearing normal and external ears normal; negative hard of hearing Nose Nose: Positive external nose normal and no nasal discharge; negative epistaxis Mouth Mouth: Positive oral mucosae normal, no lesions, good dentition and posterior oropharynx is adequate; negative post nasal drip, malodorous breath or oral thrush present Mallampati Score: I: Mallampati Score Neck Neck: Positive normal visual inspection, full ROM and trachea midline; negative lymphadenopathy, JVD or tender Chest Wall Chest: Positive normal inspection of the chest and symmetric chest movement; negative increased A/P diameter Resp lung sounds: Positive clear to auscultation, good air exchange, normal expiratory time and normal respiratory effort; negative diminished, wheezes, rhonchi, rales, dullness to percussion or wheeze present on forced exhalation Cardio Cardiac: Positive regular rate, regular rhythm, S1 normal and S2 normal; negative murmur GI GI: Positive normal to inspection and normal bowel sounds; negative distended Genitourinary: Positive deferred Musc Musculoskeletal: Positive steady gait and ROM normal; negative kyphosis or scoliosis Skin Pulmonary Skin Exam: Positive intact; negative rash, lesion, ulcers, erythema, scaly or dermal atrophy Pulses Pulse: Yes pulses normal x4 extremities Extremities Extremities: Yes capillary refill normal, No clubbing, No cyanosis, No edema, No stasis dermatitis Neuro Neurologic: Yes conversant, Yes no focal neuro deficits, Yes normal cognition, Yes normal coordination, Yes cooperative, Yes understands questions, Yes normal concentration Lymph Lymphatic: No lymphadenopathy, No tenderness, No cervical adenopathy, No axillary adenopathy Psych Appearance: Positive grossly normal, eye contact and well kempt Mental Status: Positive mental status grossly normal Mood: Positive congruent mood Affect: Positive normal affect Coding Level of Care Code Off vis,est,level 3 Diagnoses Stage 1 mild COPD by GOLD classification J44.9 06/29/17 1157 <Electronically signed by Kaykay GOULDC> Date Kaykay GOULDC Cosigner Signature: Date (if applicable) CC: Ze Perez MD PULMONARY FUNCTION Observed: 06/08/2017 Status: F Source: [place] TEST 1:48 PM [facility] REPOSITORY [facility] Pulmonary Services/Neurology [address] [place], [place] [address] MR#: [id number] Acct: [id number] Name: BENJY RIVERA Rep #: [id number] : 1940 76 From: Jean Marie Crump DO Referring Dr: Jean Marie Crump D.O. Status: REG CLI Ordering Dr: Date: Location: [facility] Sex: F C INTRODUCTION: The patient is a 76-year-old female currently under the care of myself the presents for pulmonary function testing secondary to a diagnosis of dyspnea on exertion. Respiratory therapy reports good patient effort and reports no other concerns. Bronchodilators were used during testing. INTERPRETATION: Forced expiration spirometry demonstrates the presence of a mild large airways obstructive ventilatory defect. There was a significant response to aerosolized bronchodilators noted. Spirograms are of fair quality and plateau gradually. The respiratory flow volume loop reveals decreased expiratory flow rates at all lung volumes consistent with airways obstruction. Body plethysmography was performed and reveals an elevated TLC and RV, indicative of underlying hyperinflation and air-trapping. Diffusing capacity by single breath CO is preserved at 76% of predicted. IMPRESSION: These pulmonary function studies demonstrate the presence of an irreversible mild large airways obstructive ventilatory defect with associated hyperinflation and air-trapping. There was a significant response to aerosolized bronchodilators. There are no previous pulmonary function studies available for comparison. 06/08/171347 <Electronically signed by Jean Marie Crump DO> Date Jean Marie Crump DO CC: Ze Perez MD Date Dictated: 06/08/171343 Date Transcribed: 06/08/171343 [employer] Faculty Member: JAYLYN Signed CBC W/DIFF, AUTOMATED Collected: 06/07/2017 Status: F Source: [place] 11:34 AM [facility] REPOSITORY TYPE CODE TESTS RESULT OUT OF RANGE REFERENCE UNITS LAB L100.1000 4.4-11.0 K/mm3 Normal WBC 4.6 LAB L100.1200 4.2-5.4 M/mm3 Low RBC 4.18 LAB L100.1300 12.0-15.0 g/dl Normal HGB 12.8 LAB L100.1400 37-47 % Normal HCT 38.9 LAB L100.1500 81-99 fL Normal MCV 93.1 LAB L100.1600 27.0-32.0 pg Normal MCH 30.6 LAB L100.1700 32-36 g/gl Normal MCHC 32.9 LAB L100.1810 11.6-14.6 % Normal RDW CV 13.2 LAB L100.1820 35.1-43.9 fl High RDW SD 44.4 LAB L100.1900 150-450 K/mm3 Normal PLT 267 LAB L100.2000 6.2-12.0 fl Normal MPV 10.4 LAB L100.2100 47-70 % Normal NEUT% 62.8 LAB L100.2200 19-41 % Normal LY% 25.7 LAB L100.2300 0-10 % Normal MONO% 5.4 LAB L100.2400 0-5 % Normal EO% 4.8 LAB L100.2500 0-1 % High BASO% 1.1 LAB L100.2550 0.0-0.9 % Normal IM GRAN % 0.200 Result Comment: IG% - Immature Granulocytes (promyelocytes, myelocytes and metamyelocytes) > 1% indicates that a LEFT SHIFT is Present. LAB L100.2620 2.0-7.7 X10 3/uL Normal Absolute Neut 2.9 LAB L100.2720 0.83-4.51 X10 3/ul Normal Absolute Lymph 1.19 Performed By: #### L100.0100, L101.9900 #### [facility] [address] [place], [place], [address] ERYTHROCYTE SED RATE Collected: 06/07/2017 Status: F Source: [place] 11:34 AM [facility] REPOSITORY TYPE CODE TESTS RESULT OUT OF RANGE REFERENCE UNITS LAB L102.0000 0-30 mm/hr Normal SED RATE 11 Performed By: #### L100.0100, L101.9900 #### [facility] [address] [place], [address] URIC ACID Collected: 06/07/2017 Status: F Source: [place] 11:34 AM [facility] REPOSITORY TYPE CODE TESTS RESULT OUT OF RANGE REFERENCE UNITS LAB L501.1400 2.6-6.0 mg/dL Normal URIC 4.4 Result Comment: The drugs N-Acetylcysteine and Metamizole may falsely depress this assay. Performed By: #### L501.1400, L501.6710, L505.7010 #### [facility] [address] [place], [address] CRP Collected: 06/07/2017 Status: F Source: [place] 11:34 AM [facility] REPOSITORY TYPE CODE TESTS RESULT OUT OF RANGE REFERENCE UNITS LAB L501.6710 0.0-3.0 mg/L Normal < 2.90 C-REACTIVE PROT Result Comment: C-Reactive Protein (CRP) provides useful information for the diagnosis, therapy and monitoring of inflammatory processes and associated diseases. For the evaluation of Relative Risk for Cardiovascular Disease, a High Sensitivity CRP (HSCRP) should be ordered. Performed By: #### L501.1400, L501.6710, L505.7010 #### [facility] [address] [place], [address] RHEUMATOID FACTOR Collected: 06/07/2017 Status: F Source: [place] 11:34 AM [facility] REPOSITORY TYPE CODE TESTS RESULT OUT OF RANGE REFERENCE UNITS LAB L505.7010 <15 IU/mL Normal RHEUMATOID FAC < 10.0 Performed By: #### L501.1400, L501.6710, L505.7010 #### [facility] [address] [place], [address] PTHIN Collected: 06/07/2017 Status: F Source: [place] 11:34 AM [facility] REPOSITORY TYPE CODE TESTS RESULT OUT OF RANGE REFERENCE UNITS LAB L509.1000 18.4-80.1 pg/mL Normal PTHIN 48.9 Result Comment: Please Note: PTH INTACT METHOD AND REFERENCE RANGE CHANGE Effective 04/26/2017. Performed By: #### L509.1000 #### [facility] [address] [place], [address] ALEXYS COMPREHENSIVE PANEL Collected: 06/07/2017 Status: F Source: [place] 11:34 AM [facility] REPOSITORY TYPE CODE TESTS RESULT OUT OF RANGE REFERENCE UNITS LAB L3100.5500 0-9 IU/mL Normal dsDNA AB <1 Result Comment: Negative <5 Equivocal 5 - 9 Positive >9 LAB L3100.9200 0.0-0.9 AI Anti-SS-A High 7.4 LAB L3100.9300 0.0-0.9 AI Anti-SS-B Normal < 0.2 LAB L3410.0427 0.0-0.9 AI ANTICHROMATIN Normal <0.2 LAB L3410.0500 0.0-0.9 AI ANTI-MALOU Normal <0.2 LAB L3410.0700 0.0-0.9 AI ANTISCLER Normal <0.2 LAB L3410.1200 0.0-0.9 AI INFORMATICS PHARMACIST Ab Normal <0.2 LAB L3410.1300 0.0-0.9 AI PEREZ Ab Normal <0.2 LAB L3410.4010 0.0-0.9 AI ANTI-CENT B Normal <0.2 LAB L3410.4150 . COMMENT Normal Comment Result Comment: Autoantibody Disease Association Condition Frequency --------- Antinuclear Antibody, SLE, mixed connective Direct (ALEXYS-D) tissue diseases --------- dsDNA SLE 40 - 60% --------- Chromatin Drug induced SLE 90% SLE 48 - 97% --------- SSA (Ro) SLE 25 - 35% Sjogren's Syndrome 40 - 70% Lupus 100% --------- SSB (La) SLE 10% Sjogren's Syndrome 30% --------- Sm (anti-Perez) SLE 15 - 30% --------- INFORMATICS PHARMACIST Mixed Connective Tissue Disease 95% (U1 nRNP, SLE 30 - 50% anti-ribonucleoprotein) Polymyositis and/or Dermatomyositis 20% --------- Scl-70 (antiDNA Scleroderma (diffuse) 20 - 35% topoisomerase) Crest 13% --------- Malou-1 Polymyositis and/or Dermatomyositis 20 - 40% --------- Centromere B Scleroderma - Crest variant 80% Performed at: [facility] [id number] Senior Systems Software Engineer: Shaun Nicholson PhD, Phone: [phone] Performed By: #### L3100.5440 #### [facility] (refer to report for specific site) refer to report for address and phone number PULMONARY VISIT REPORT Observed: 05/31/2017 Status: F Source: [place] 9:45 AM [facility] REPOSITORY [facility] [address] [place], [place] [address] OFFICE VISIT Date of Service: 05/31/17 MR#: [id number] Acct: [id number] Name: BENJY RIVERA Rep #: [id number] : 1940 Provider: Jean Marie Crump D.O. Age/Sex: 76/F Location: [facility] Status: Signed Assessment AND Plan 1. CAMEJO (dyspnea on exertion) R06.09 Plan Although the patient is a non-smoker herself, she does report significant secondhand smoke exposure over her lifetime. We will plan to begin by obtaining baseline pulmonary function testing to rule out for the presence of an obstructive ventilatory impairment. If there is evidence of fixed airflow obstruction on PFTs, the patient can be offered albuterol metered-dose inhaler and assess for symptom response to therapy. She will have short interval follow-up with our nurse practitioner to discuss the findings on her PFTs. Orders Orders: 2. 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 She was lost to follow-up with the chief building inspector that she had established with an [place]. She does not recall ever having been told that she had underlying structural lung disease. If there are significant abnormalities identified on her PFTs, consideration could be given to obtaining dedicated chest imaging in the form of a noncontrasted chest CT. However, at this time, I do not feel that it would be clinically indicated. 3. Secondhand smoke exposure Z77.22 Plan As above, given the patient's secondhand smoke exposure, baseline PFTs will be obtained. Orders Orders: Plan Detail Follow Up 1 Month (CSM) HPI HPI Comments Details: The patient is a 76-year-old female who presents to the clinic today and referral for evaluation of COPD and previous history of MAC infection. The patient currently follows with Dr. Ze Perez [facility] physicians. The patient reports that approximately 9 years ago she was evaluated by Dr. Escamilla (Pulmonary) in [place] after she developed chest discomfort and shortness of breath. Subsequent workup included chest imaging which reportedly revealed shadowing in her upper lung britton. This prompted the patient to undergo needle biopsy along with bronchoscopy, which per account, led to a diagnosis of a MAC infection. The patient received a prolonged treatment course with subsequent resolution of the infection noted. She was supposed to follow-up but her became ill and she never did so. She does not recall ever having been told that she had underlying lung disease or parenchymal abnormalities like bronchiectasis. Currently, she endorses the presence of dyspnea only with strenuous physical exertion. She does have an intermittent nonproductive cough, but denies the presence of chest tightness or wheezing. The patient has lived in [place] her entire life. 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 Her weight has been stable. Although she is a lifelong non-smoker herself, she does report significant secondhand smoke exposure over her lifetime. She does not currently utilize any inhalers in her home environment. She denies fevers, chills or night sweats. She denies chest pain, dizziness or lightheadedness. She has never undergone formal pulmonary function testing that she can recall. Intake Vital Signs05/31/17 Height 5 ft 5 in 05/31/17 Weight: 140 lb Intake Visit Reasons: Dr. Perez referral Accompanied by: Self Allergies prochlorperazine [From Compazine] Allergy (Severe, Verified 05/31/17 09:00) Other - unable to breathe Sulfa (Sulfonamide Antibiotics) Allergy (Mild, Verified 05/31/17 09:00) Nausea prescription pain meds Allergy (Mild, Uncoded 05/31/17 09:00) Nausea/Vom/Diarrhea/Lightheadedness codeine phosphate Allergy (Unknown, Uncoded 05/31/17 09:00) Unknown Medications acetylcysteine (bulk) powder See Label Instructions MISCELLANEOUS BID g 05/24/17 [History Confirmed 05/31/17] ascorbic acid (vitamin C) 500 mg capsule 250 mg PO QDAY ea 05/24/17 [History Confirmed 05/31/17] baicalin-catechin 500 mg capsule 2 cap PO BID cap 05/24/17 [History Confirmed 05/31/17] calcium citrate 200 mg (950 mg) tablet 200 mg PO BID tab 05/24/17 [History Confirmed 05/31/17] cholecalciferol (vitamin D3) 1,000 unit capsule 1,000 unit PO ONCE 05/24/17 [History Confirmed 05/31/17] famciclovir 125 mg tablet 125 mg PO BID 05/24/17 [History Confirmed 05/31/17] magnesium oxide 400 mg capsule 400 mg PO QDAY cap 05/24/17 [History Confirmed 05/31/17] pravastatin 20 mg tablet 20 mg PO QHS 05/24/17 [History Confirmed 05/31/17] tolterodine ER 4 mg capsule,extended release 24 hr 4 mg PO QDAY 05/24/17 [History Confirmed 05/31/17] COUNT INCLUDES THE [facility] Medical History Atypical mycobacterial infection (Acute) Caregiver stress (Acute) Myalgia and myositis (Acute) Right upper quadrant pain (Acute) COPD (chronic obstructive pulmonary disease) (Chronic) Hypercholesteremia (Chronic) Irritable bowel syndrome with constipation (Chronic) Lactose intolerance (Chronic) Lumbar degenerative disc disease (Chronic) Osteopenia (Chronic) Surgical History D AND C (Resolved) H/O breast biopsy (Resolved) H/O colonoscopy (Resolved) H/O laminectomy (Resolved) H/O total hysterectomy (Resolved) History of lung biopsy (Resolved) History of tonsillectomy (Resolved) Family History Grandmother Hypertension CHF (congestive heart failure) Daughter cardiac ablation Grandfather Lung cancer Alcohol abuse Father Alcohol abuse Lung cancer Sister CAD (coronary artery disease) Brother Suicide Son Suicide HCV (hepatitis C virus) IV drug user Aunt Heart disease Breast cancer Bladder cancer Uncle Heart disease Hypertension Cancer Mother Bladder cancer Brother CAD (coronary artery disease) Brother Heart disease Hypertension Diabetes Alcohol abuse Anger Sister Hypertension Heart disease Breast cancer Arthritis Anger Sister Breast cancer Bladder cancer Son Diabetes Heart disease Son Hypertension Daughter Rheumatoid arthritis Migraine Sister Hypertension CVA (cerebral vascular accident) 2015 Migraine Social History pets and animals: Yes pets and animals: dog(s) Smoking Status: Never smoker alcohol intake: current alcohol intake frequency: holidays/special occasions only Alcohol type: wine substance use type: does not use Review of Systems Const CONSTITUTIONAL: Positive body ache and headache(s); negative anorexia, chills, daytime sleepiness, fever(s), night sweats, oral thrush, stops breathing during sleep, weight loss, sleeping in chair, fatigue, weight loss, weight gain, frequent colds, seasonal allergies, other or orthopnea EETM Ear Nose Throat Mouth: Positive hearing normal, headache(s) and nasal discharge (clear); negative hard of hearing, hoarseness, dry mouth in morning, change in vision, itchy eyes, eye pain, swallowing Difficulty, ear pain, nose bleed, mouth pain, nasal congestion, post nasal drip, sinus pain, sinus pressure, sore throat or other Cardio Cardiovascular: Negative chest pain, chest pain at rest, chest pain with activity, irregular heart rhythm, edema, shortness of breath when lying down, palpitations, murmur or other Resp Respiratory: Positive as per HPI, shortness of breath and cough cough: Positive non-productive (feels its from the nasal drainage ); negative pain with cough, wheezing, chest congestion, chest tightness, pain on inspiration, inhalers, increase use of rescue inhalers, snoring, apnea or other Gastro Gastrointestional: Negative bloody stools, change in appetite, difficulty swallowing, reflux, hematemesis, melena stool, loose stool, constipation or other Genitourinary: Negative blood in urine, nocturia, pain with urination or other Musc Musculoskeletal: Positive body pain and back pain; negative neck pain or other Skin/Breast Skin/Breast: Negative dry skin, itching, rash, unusual bruising, breast lump or other Neuro Neurological: Negative restless legs, confusion, weakness or other Psych Psychocological: Negative abnormal sleep pattern, anxiety, thoughts of hurting self/others, hopelessness or other Lymph Lymphatic: Negative easy bleeding, easy bruising, swollen lymph nodes or other Exam Const Constitutional: Positive conversant, cooperative, in no acute respiratory distress, well developed, well nourished and good hygiene Head Head: Positive normocephalic and atraumatic; negative cyanosis of lips/distal nose Eyes Eye: Positive clear conjunctiva; negative nystagmus or scleral abnormality Ears Ear: Positive hearing normal; negative hard of hearing Nose Nose: Positive external nose normal; negative epistaxis Mouth Mouth: Positive oral mucosae normal, no lesions and posterior oropharynx is adequate; negative post nasal drip Neck Neck: Positive normal visual inspection and trachea midline; negative lymphadenopathy Chest Wall Chest: Positive symmetric chest movement Normal AP diameter. Resp lung sounds: Positive clear to auscultation and good air exchange; negative wheezes, rhonchi or rales Cardio Cardiac: Positive regular rate, regular rhythm, S1 normal and S2 normal; negative murmur, rub or gallop GI GI: Positive normal bowel sounds Soft without distention Genitourinary: Positive deferred Musc Musculoskeletal: Positive steady gait Skin Pulmonary Skin Exam: Positive intact; negative rash or lesion Pulses Pulse: Yes Pedal pulses present: Extremities Extremities: No clubbing, No cyanosis, No edema Neuro Neurologic: Yes conversant, Yes no focal neuro deficits, Yes cooperative Lymph Lymphatic: No lymphadenopathy Psych Appearance: Positive grossly normal Mental Status: Positive mental status grossly normal Mood: Positive congruent mood Affect: Positive normal affect Coding Level of Care Code Off vis,new,level 4 Diagnoses CAMEJO (dyspnea on exertion) R06.09 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 Secondhand smoke exposure Z77.22 05/31/17 0945 <Electronically signed by Jean Marie Crump DO> Date Jean Marie Crump DO Cosigner Signature: Date (if applicable) CC: Ze Perez MD ALLERGIES ALLERGIES DATE TYPE / CODE NAME / CODE REACTION SEVERITY SOURCE Drug Sulfa Nausea [place] [facility] Allergy/134085030( (Sulfonamide Community SNOMED CT) Antibiotics)/01 [facility] 770377(RXNORM) Repository Drug prochlorperazine/ Other - [place] [facility] Allergy/348480525( [id number](RXNORM unable to Community SNOMED CT) ) [facility] Repository Miscellaneous codeine phosphate Unknown Unknown [place] [facility] Allergy/844394600( Community SNOMED CT) Hospital Repository Miscellaneous prescription pain Nausea/Vom/Di [place] Allergy/822892562( meds arrhea/Lighth Community SNOMED CT) [facility] Hospital Repository ENCOUNTERS ENCOUNTERS ADMIT/DISCHARGE ACCOUNT ADMITTING ENCOUNTER LOCATION SOURCE NUMBER CLASS 05/05/2018/ [id number] Emergency [place] 8 6 [facility] ing:ED Repository 04/24/2018/ [id number] Ambulatory BMSBuilding:B [place] 9 MS.PMW [facility] Repository 04/17/2018 [id number] Ambulatory BMSBuilding:W [place] 7 [facility] Repository 04/17/2018 [id number] Ambulatory [place] 0 [facility] ing:PSN Repository 03/19/2018 [id number] Ambulatory [place] 1 [facility] Hospital ing:MTLAB Repository 01/15/2018 [id number] Ambulatory [place] 0 [facility] Hospital ing:MTLAB Repository 10/31/2017/ [id number] Ambulatory BMSBuilding:B [place] [facility] 8 [facility] Hospital Repository 10/16/2017 [id number] Ambulatory [place] 2 [facility] Hospital ing:MTLAB Repository 10/12/2017 [id number] Ambulatory [place] 2 [facility] Hospital ing:CT Repository 08/07/2017 [id number] Ambulatory [place] 0 [facility] Hospital ing:MTLAB Repository 07/31/2017/ [id number] Ambulatory BMSBuilding:B [place] 8 2 MS.[facility] Hospital Repository 07/28/2017 [id number] Ambulatory [place] 8 [facility] Hospital ing:BI Repository 06/29/2017/ [id number] Ambulatory BMSBuilding:B [place] 6 MS.[facility] Hospital Repository 06/08/2017 [id number] Ambulatory [place] 2 [facility] Hospital ing:PSN Repository 06/08/2017 [id number] Ambulatory BMSBuilding:W [place] 3 [facility] Hospital Repository 06/07/2017 [id number] Ambulatory [place] 5 [facility] Hospital ing:MFPLAB Repository 05/31/2017/ [id number] Ambulatory BMSBuilding:B [place] 8 2 MS.[facility] Hospital Repository PAYERS PAYERS ENCOUNTER GUARANTOR PAYER SUBSCRIBER SOURCE 05/05/2018 ELIA Jacob Primary BENJY K [place] [id number] Insurance:MEDICARE BOVILLEDOB: [facility] PART A [facility] [id number] Number: Repository [id number]: [phone] [id number] [phone] () Date:2018-05-05 05/05/2018 Secondary BENJY K [place] Insurance:[facility] BOVILLEDOB: [facility] FARMPolicy Number: [id number] Hospital [id number] Repository Date:[id number] [address] [place] [address]CO: 05/05/2018 Tertiary NOT GIVENUNK [place] Insurance:SELF PAY [facility] Number: Effective Repository Date:2018-05-05 04/24/2018 ELIA A Primary BENJY K [place] [id number] Insurance:MEDICARE BOVILLEDOB: Community [place] PART A [facility] [id number] Number: Repository [address]Bcw: 330 [id number] [phone] () Date:2017-10-31 04/24/2018 Secondary BENJY K [place] Insurance:STATE BOVILLEDOB: [facility] [place]: [id number] Hospital [id number] Repository Date:[id number] [address] [place] [address]JL: 04/24/2018 Tertiary NOT GIVENUNK [place] Insurance:SELF PAY [facility] Number: Effective Repository Date:2018-04-16 04/17/2018 ELIA A Primary BENJY K [place] [id number] Insurance:MEDICARE BOVILLEDOB: Community LE[place] PART A [facility] [id number] Number: Repository [id number]: 330 [id number] [phone] () Date:2017-10-31 04/17/2018 Secondary BENJY K [place] Insurance:STATE BOVILLEDOB: [facility] [place] Number: [id number] Hospital [id number] Repository Date:[id number] [address] [place] [address] 14008VU: 04/17/2018 Tertiary NOT GIVENUNK Kasi Insurance:SELF PAY [facility] Number: Effective Repository Date:2018-04-17 04/17/2018 ELIA A Primary BENJY K [place] [id number] Insurance:MEDICARE BOVILLEDOB: Community LEICHTY PART A [facility] [id number] Number: Repository 55091Vec: 330 [id number] [phone] (HP) Date:2017-10-31 04/17/2018 Secondary BENJY K Kasi Insurance:STATE BOVILLEDOB: Community FARMPolicy Number: [id number] [id number] Repository Date:8106-65-00IA [address] [place] [address] 84545CJ: 04/17/2018 Tertiary NOT GIVENUNK [place] Insurance:SELF PAY [facility] Effective Repository Date:2017-10-31 03/19/2018 ELIA A Primary BENJY K [place] [id number] Insurance:MEDICARE BOVILLEDOB: Community LEICHTY PART A [facility] [id number] Number: Repository 72190Oea: 330 [id number] [phone] () Date:2018-03-19 03/19/2018 Secondary BENJY K Kasi Insurance:STATE BOVILLEDOB: [facility] FARMPolicy Number: [id number] Hospital [id number] Repository Date:8673-33-95SM [address] [place] [address] 85998AV: 03/19/2018 Tertiary NOT GIVENUNK [place]asi Insurance:SELF PAY [facility] Number: Effective Repository Date:2018-03-19 01/15/2018 ELIA A Primary BENJY K [place] [id number] Insurance:MEDICARE BOVILLEDOB: Community LEICHTY PART A [facility] [id number] Number: Repository [id number]: 330 [id number] [phone] () Date:2018-01-15 01/15/2018 Secondary BENJY K [place] Insurance:STATE BOVILLEDOB: [facility] FARMPolic Number: [id number] Hospital [id number] Repository Date:7185-63-60CX [address] [place] [address] 11461AX: 01/15/2018 Tertiary NOT GIVENUNK [place] Insurance:SELF PAY [facility] Number: Effective Repository Date:2018-01-15 10/31/2017 ELIA A Primary BENJY K [place] [id number] Insurance:MEDICARE BOVILLEDOB: Community LEICHTY PART A [facility] [id number] Number: Repository 877[address]Pvy: 330 [id number] [phone] () Date:2017-07-31 10/31/2017 Secondary BENJY K Kasi Insurance:STATE BOVILLEDOB: [facility] Number: [id number] City Regional Health Care [id number] Repository Date:1401-53-35OJ [address] [place] [address] 19784XJ: 10/31/2017 Tertiary NOT GIVENUNK [place] Insurance:SELF PAY [facility] Number: Effective Repository Date:2017-10-24 10/16/2017 ELIA A Primary BENJY K [place] [id number] Insurance:MEDICARE BOVILLEDOB: Community LEICHTY PART A [id number] [place] Number[facility] Repository [address]Mub: 330 [id number] [phone] () Date:2017-10-16 10/16/2017 Secondary BENJY K [place] Insurance:STATE BOVILLEDOB: [facility] Number: [id number] City Regional Health Care [id number] Repository Date:4136-33-14CR [address] [place] [address] 02971RT: 10/16/2017 Tertiary NOT GIVENUNK [place] Insurance:SELF PAY [facility] Number: Effective Repository Date:2017-10-16 10/12/2017 ELIA A Primary BENJY K [place] [id number] Insurance:MEDICARE BOVILLEDOB: Community LEICHTY PART A [facility] [id number] Number: Repository [id number]: 330 [id number] [phone] (HP) Date:2017-10-03 10/12/2017 Secondary BENJY K Kasi Insurance:STATE BOVILLEDOB: [facility] Number: [id number] City Regional Health Care [id number] Repository Date:9753-76-44IO [address] [place] [address] 25523WS: 10/12/2017 Tertiary NOT GIVENUNK Kasi Insurance:SELF PAY [facility] Number: Effective Repository Date:2017-10-03 08/07/2017 ELIA A Primary BENJY K [place] [id number] Insurance:MEDICARE BOVILLEDOB: Community LEICHTY PART A [facility] [id number] Number: Repository 99394Iom: 330 [id number] [phone] () Date:2017-08-07 08/07/2017 Secondary BENJY K Kasi Insurance:STATE BOVILLEDOB: [facility] [place] Number: [id number] Hospital [id number] Repository Date:9684-60-98TI [address] [place] [address] 18309CO: 08/07/2017 Tertiary NOT GIVENUNK [place] Insurance:SELF PAY [facility] Number: Effective Repository Date:2017-08-07 07/31/2017 ELIA A Primary BENJY K Kasi [id number] Insurance:MEDICARE BOVILLEDOB: Community LEICHTY PART A [facility] [id number] Number: Repository 73406Txr: 330 [id number] [phone] () Date:2017-06-29 07/31/2017 Secondary BENJY K [place] Insurance:STATE BOVILLEDOB: [facility] [place] Number: [id number] Hospital [id number] Repository Date:6516-00-64OS [address] [place] [address] 93212CZ: 07/31/2017 Tertiary NOT GIVENUNK [place]asi Insurance:SELF PAY [facility] Number: Effective Repository Date:2017-07-27 07/28/2017 ELIA A Primary BENJY K Kasi [id number] Insurance:MEDICARE BOVILLEDOB: Community LEICHTY PART A [facility] [id number] Number: Repository 15272Drg: 330 [id number] [phone] (HP) Date:2017-07-10 07/28/2017 Secondary BENJY K [place] Insurance:STATE BOVILLEDOB: Community FARMPolicy Number: [id number] City Regional Health Care [id number] Repository Date:5248-01-93PP [address] [place] [address] 71097RR: 07/28/2017 Tertiary NOT GIVENUNK Kasi Insurance:SELF PAY [facility] Number: Effective Repository Date:2017-07-10 06/29/2017 ELIA A Primary BENJY K [place] [id number] Insurance:MEDICARE BOVILLEDOB: Community LEICHTY PART A [facility] [id number] Number: Repository 87335Tkq: 330 [id number] [phone] () Date:2017-05-31 06/29/2017 Secondary BENJY K [place] Insurance:STATE BOVILLEDOB: Critical access hospital Number: [id number] City Regional Health Care [id number] Repository Date:3099-87-00WK [address] [place] [address] 82141JL: 06/29/2017 Tertiary NOT GIVENUNK [place]asi Insurance:SELF PAY [facility] Number: Effective Repository Date:2017-05-31 06/08/2017 ELIA A Primary BENJY K [place] [id number] Insurance:MEDICARE BOVILLEDOB: Community LEICHTY PART A [facility] [id number] Number: Repository 32[address]Ony: 330 [id number] [phone] () Date:2017-05-31 06/08/2017 Secondary BENJY K Kasi Insurance:STATE BOVILLEDOB: [facility] FARMPolmethodist jennie edmundson Number: [id number] City Regional Health Care [id number] Repository Date:6807-68-14EG [address] [place] [address] 93046VU: 06/08/2017 Tertiary NOT GIVENUNK [place] Insurance:SELF PAY [facility] Number: Effective Repository Date:2017-05-31 06/08/2017 ELIA A Primary BENJY K [place] [id number] Insurance:MEDICARE BOVILLEDOB: Community LEICHTY PART A [facility] [id number] Number: Repository 487[address]Uav: 330 [id number] [phone] () Date:2017-05-31 06/08/2017 Secondary BENJY K Kasi Insurance:STATE BOVILLEDOB: Community FARMPolic Number: [id number] City Regional Health Care [id number] Repository Date:5991-47-24DK [address] [place] [address] 06013SC: 06/08/2017 Tertiary NOT GIVENUNK [place] Insurance:SELF PAY [facility] Number: Effective Repository Date:2017-06-08 06/07/2017 ELIA A Primary BENJY K [place] [id number] Insurance:MEDICARE BOVILLEDOB: Community LEICHTY PART A [facility] [id number] Number: Repository 555[address]Lyx: 330 [id number] [phone] () Date:2017-06-07 06/07/2017 Secondary BENJY K [place] Insurance:STATE BOVILLEDOB: [facility]ARM[facility] [place] Number: [id number] City Regional Health Care [id number] Repository Date:8823-17-21SR [address] [place] [address] 84603LI: 06/07/2017 Tertiary NOT GIVENUNK [place] Insurance:SELF PAY [facility] Number: Effective Repository Date:2017-06-07 05/31/2017 ELIA A Primary BENJY K [place] [id number] Insurance:MEDICARE BOVILLEDOB: Community LEICHTY PART A [facility] [id number] Number: Repository 88491Okz: 330 [id number] [phone] () Date:2017-04-14 05/31/2017 Secondary BENJY K Kasi Insurance:STATE BOVILLEDOB: [facility]ARM[facility] [place] Number: [id number] Hospital [id number] Repository Date:1258-76-29QY [address] [facility] [address]SS: 05/31/2017 Tertiary NOT GIVENUNK [place] Insurance:SELF PAY [facility] Number: Effective Repository Date:2017-04-14
== END ==
PROVIDERS: Family Provider Family Medicine; PCP Family Medicine; Referring Provider Internal Medicine Critical Care Medicine; Visit Provider Internal Medicine Critical Care Medicine
DX: J44.9 Chronic obstructive pulmonary disease, unspecified (principal)
CPT/HCPCS: 94060; 94726; 94729

== ENCOUNTER 2018-05-05 19:05 | Emergency (ER) | payer MEDICARE, OTHER, SELFPAY ==
[2018-04-24 09:31] VITALS: BMI 24.3
[2018-05-05 19:05] VITALS: BP 123/88; PULSE 76; RESP 18; TEMP 36.1; O2SAT 100; BMI 24.0
--- NOTE | 2018-05-05 19:18 | ED.VISSUMM ---
- ER Visit Summary Date of Service: 05/05/18 Chief Complaint: Pain right ankle and foot status post plantar inversion mechanism injury History of Present Illness: The patient is a 77 F who had a plantar inversion mechanism injury and complains of lateral right lower extremity pain that she localizes over the ankle/foot. She denies prior history of trauma. She is unable to bear weight. She states she took 2 Tylenol with no effect. She denies paresthesia, anesthesia motor weakness. Physical Examination: Vital signs noted and blood pressure is slightly elevated 123/88. DP and PT pulses are palpable. There is pain palpation over the distal 3 cm of the lateral malleolus. Is no pain the patient over the medial malleolus. Is elected with drawer testing. There is pain abrasion over the anterior talofibular ligament. There is no pain the patient base of fifth metatarsal. Test Results: Three-view x-ray of the ankle was interpreted by me as negative for fracture, subluxation or dislocation. There is no evidence of fracture at the base of the fifth metatarsal either. Emergency Department Course and Treatment: Patient was medicated with Zofran 4 mg ODT and 1 Hale tablet. X-ray was obtained to evaluate for fracture. Treatment Plan: Antiemetic, oral analgesia and Aircast Disposition: Discharged to home Impression: Anterior talofibular ligament right ankle sprain This note was generated with [employer] dictation software. It may contain incorrect words, spelling, and punctuation that were not noted in review of the chart prior to signing ED Disposition - Plan for ED Patient: Disposition: Home or Assisted Living Chief Complaint: Lower Extremity Injury Instructions: ED Sprain Ankle W X Ray Prescriptions: Hydrocodone Bitart/Apap 5-325 [Hale 5MG-325MG] 1 tab PO Q6H PRN PRN 3 Days #10 tab PRN Reason: Pain Ondansetron [Zofran Odt] 4 mg PO Q8H PRN PRN #10 tab PRN Reason: Nausea Referrals: Ze Perez MD [Primary Care Provider] - 1 Week if not improving Additional Instructions: Apply ice 6-8 times a day for 20-30 minutes for the next 2-3 days. Remove the Aircast to draw the alphabet with your foot 4-6 times a day for the next 5-7 days.
[2018-05-05 19:49] VITALS: BP 110/54; PULSE 75; RESP 16; O2SAT 97
[2018-05-05] MEDS: Ondansetron ODT 4 MG Tablet PO (19:49)
[2018-05-05] MEDS: HYDROcodone Bitartrate/Apap 5/325 Tablet PO (19:50)
--- NOTE | 2018-05-05 19:55 | RAD_ITS ---
STUDY: X-RAY - RIGHT ANKLE REASON FOR EXAM: Female, 77 years old. Fall. Pain. TECHNIQUE: 3 view(s) of the ankle. COMPARISON: None. FINDINGS: Normal visualized distal tibia and fibula. Normal medial and lateral malleoli. Normal tibiotalar articulation and ankle mortise. Normal visualized talus and calcaneus. The visualized subtalar, talonavicular, calcaneocuboid and tarsal articulations are normal. The soft tissue structures are unremarkable. RAD/Ankle min 3 Views IMPRESSION: No acute abnormality. Electronically Signed: Armando Ramirez MD at 21:05 EST , Service support ,
[2018-05-05 21:17] VITALS: BP 126/74; PULSE 74; RESP 16; O2SAT 94
== END 2018-05-05 21:24 | disposition home or self-care (01) ==
PROVIDERS: Emergency Provider Emergency Medicine; Family Provider Family Medicine; PCP Family Medicine
DX: S93.491A Sprain of other ligament of right ankle, initial encounter (principal); X58.XXXA Exposure to other specified factors, initial encounter; Y93.9 Activity, unspecified; Y92.89 Other specified places as the place of occurrence of the external cause; Y99.9 Unspecified external cause status; J44.9 Chronic obstructive pulmonary disease, unspecified; E78.00 Pure hypercholesterolemia, unspecified
CPT/HCPCS: 73610; 99283

== ENCOUNTER → 2018-06-18 12:01 | Outpatient (CLI) | payer MEDICARE, OTHER, SELFPAY ==
[2018-06-18 14:16] LABS: Basophil# 0.03 X10^3/uL; Basophil% 0.6 % (0-1); Eosinophils% 4.3 % (0-5); Hematocrit 38.9 % (37-47); Hemoglobin 12.4 g/dl (12.0-15.0); Lymphocyte % 23.7 % (19-41); Mean Corp Hgb Conc 31.9 g/gl (32-36); Mean Corpuscular Hgb 30.2 pg (27.0-32.0); Mean Corpuscular Volume 94.9 fL (81-99); Mean Platelet Vol. 10.2 fl (6.2-12.0); Monocyte# 0.31 X10^3/uL; Monocyte% 6.7 % (0-10); Neutrophil # 2.97 X10^3/uL (2.7-7.7); Neutrophil % 64.1 % (47-70); Platelet Count 269 K/mm3 (150-450); RBC Distribution Width CV 13.7 % (11.6-14.6); RBC Distribution Width SD 45.1 fl (35.1-43.9); White Blood Count 4.6 K/mm3 (4.4-11.0)
[2018-06-18 14:18] LABS: POSITIVE COUNT NO; POSITIVE DIFFERENTIAL NO; POSITIVE MORPHOLOGY NO
[2018-06-18 14:30] LABS: ALB/GLOB Ratio 1.2 RATIO (0.9-2.4); AST(SGOT) 17 U/L (15-37); Alanine Aminotransfer ALT/SGPT 22 U/L (13-56); Alkaline Phosphatase 62 U/L (45-117); Anion Gap 11 (5-15); BUN 16 mg/dL (7-18); BUN/Creat Ratio 17.7 RATIO (10-20); Calcium,Total 9.2 mg/dL (8.5-10.1); Chloride 107 mmol/L (98-107); EST Glomerular Filtration Rate 64 mL/min (>60); Est Glom Filt Rate - Afr Amer 78 mL/min (>60); Globulin 3.4 g/dL (2.2-4.2); Glucose 86 mg/dL (74-106); Potassium 4.1 mmol/L (3.5-5.1); Protein, Total 7.4 g/dL (6.4-8.2); Sodium Level 145 mmol/L (136-145)
== END ==
PROVIDERS: Family Provider Family Medicine; PCP Family Medicine; Referring Provider Internal Medicine Rheumatology; Visit Provider Internal Medicine Rheumatology
DX: M06.4 Inflammatory polyarthropathy (principal); M35.00 Sjogren syndrome, unspecified; M79.672 Pain in left foot; M51.37 Other intervertebral disc degeneration, lumbosacral region; E78.5 Hyperlipidemia, unspecified; J44.9 Chronic obstructive pulmonary disease, unspecified; N39.46 Mixed incontinence; Z79.899 Other long term (current) drug therapy
CPT/HCPCS: 36415; 80053; 85025

== ENCOUNTER → 2018-10-03 11:57 | Outpatient (CLI) | payer MEDICARE, OTHER, SELFPAY ==
[2018-10-03 14:21] LABS: Absolute Lymphocyte Count 0.95 X10^3/ul (0.83-4.51); Absolute Neutrophil Count 2.8 X10^3/uL (2.0-7.7); Basophil# 0.03 X10^3/uL; Basophil% 0.7 % (0-1); Eosinophil# 0.14 X10^3/uL; Eosinophils% 3.3 % (0-5); Hematocrit 36.1 % (37-47); Hemoglobin 11.7 g/dl (12.0-15.0); Lymphocyte # 0.95 X10^3/ul (4.0); Lymphocyte % 22.3 % (19-41); Mean Corp Hgb Conc 32.4 g/gl (32-36); Mean Corpuscular Hgb 30.5 pg (27.0-32.0); Mean Platelet Vol. 10.5 fl (6.2-12.0); Monocyte# 0.33 X10^3/uL; Monocyte% 7.7 % (0-10); Neutrophil % 65.8 % (47-70); Platelet Count 267 K/mm3 (150-450); RBC Distribution Width CV 13.4 % (11.6-14.6); RBC Distribution Width SD 44.2 fl (35.1-43.9); Red Blood Count 3.84 M/mm3 (4.2-5.4); White Blood Count 4.3 K/mm3 (4.4-11.0)
[2018-10-03 14:22] LABS: POSITIVE COUNT NO; POSITIVE DIFFERENTIAL NO; POSITIVE MORPHOLOGY NO
[2018-10-03 14:36] LABS: ALB/GLOB Ratio 1.1 RATIO (0.9-2.4); AST(SGOT) 19 U/L (15-37); Alanine Aminotransfer ALT/SGPT 20 U/L (13-56); Albumin, Serum 3.7 g/dL (3.2-5.0); Alkaline Phosphatase 59 U/L (45-117); Anion Gap 6 (5-15); BUN 18 mg/dL (7-18); BUN/Creat Ratio 19.8 RATIO (10-20); Calcium,Total 8.9 mg/dL (8.5-10.1); Chloride 108 mmol/L (98-107); Creatinine, Serum 0.91 mg/dL (0.55-1.02); EST Glomerular Filtration Rate 64 mL/min (>60); Est Glom Filt Rate - Afr Amer 77 mL/min (>60); Globulin 3.4 g/dL (2.2-4.2); Glucose 85 mg/dL (74-106); Potassium 4.3 mmol/L (3.5-5.1); Protein, Total 7.1 g/dL (6.4-8.2); Sodium Level 142 mmol/L (136-145)
== END ==
PROVIDERS: Family Provider Family Medicine; PCP Family Medicine; Referring Provider Internal Medicine Rheumatology; Visit Provider Internal Medicine Rheumatology
DX: M06.4 Inflammatory polyarthropathy (principal); Z79.899 Other long term (current) drug therapy; M35.00 Sjogren syndrome, unspecified; M51.37 Other intervertebral disc degeneration, lumbosacral region; E78.5 Hyperlipidemia, unspecified; J44.9 Chronic obstructive pulmonary disease, unspecified; N39.46 Mixed incontinence
CPT/HCPCS: 36415; 80053; 85025

== ENCOUNTER → 2018-10-19 13:04 | Outpatient (CLI) | payer MEDICARE, OTHER, SELFPAY ==
[2018-10-15 14:14] VITALS: BMI 24.0
--- NOTE | 2018-10-19 13:06 | BI_ITS ---
MAMMOGRAPHY - BILATERAL SCREENING REASON FOR EXAM: Female, 77 years old. Routine annual screening examination. PERTINENT HISTORY: Sister with breast cancer. Aunts with breast cancer. Remote breast biopsies. Bilateral breast implants. TECHNIQUE: Digital bilateral breast eliud (3D mammographic acquisition) in the CC and MLO projections. 2-D mediolateral oblique (MLO) and craniocaudad (CC) views of both breasts were obtained. CAD: Full Field Digital Mammography with Computer Added Detection was performed. COMPARISON: Comparison is made with prior study of July 28, 2017 and July 27, 2016. FINDINGS: Breast Composition: The breasts are heterogeneously dense, which may obscure small masses. There are no dominant masses or suspicious calcifications. Stable bilateral breast implants. No other significant abnormalities are identified. There has been no significant change since the prior study. BI/SCREEN MAMM (CAD) W/ELIUD BILAT IMPRESSION: Stable bilateral screening mammogram. Yearly follow-up mammogram recommended. (A) ASSESSMENT CATEGORY: BIRADS Category 2: Benign. A letter regarding these results will be sent to the patient by the facility within 30 days. Approximately 10% of breast cancers are not detected by mammography. A normal mammogram should not delay biopsy of a clinically suspicious abnormality. [id number] Electronically Signed: Jayme Talamantes, at 14:36 EDT , Service support ,
== END ==
PROVIDERS: Family Provider Family Medicine; PCP Family Medicine; Referring Provider Family Medicine; Visit Provider Family Medicine
DX: Z12.31 Encounter for screening mammogram for malignant neoplasm of breast (principal)
CPT/HCPCS: 77063; 77067

== ENCOUNTER → 2018-12-17 12:29 | Outpatient (CLI) | payer MEDICARE, OTHER, SELFPAY ==
[2018-10-15 14:14] VITALS: BMI 24.0
[2018-12-17 13:58] LABS: Absolute Lymphocyte Count 0.97 X10^3/uL (0.83-4.51); Absolute Neutrophil Count 2.1 X10^3/uL (2.0-7.7); Basophil# 0.04 X10^3/uL; Basophil% 1.1 % (0-1); Eosinophil# 0.23 X10^3/uL; Eosinophils% 6.3 % (0-5); Hematocrit 36.4 % (37-47); Hemoglobin 12.1 g/dL (12.0-15.0); Lymphocyte # 0.97 X10^3/ul (4.0); Lymphocyte % 26.6 % (19-41); Mean Corp Hgb Conc 33.2 g/dL (32-36); Mean Corpuscular Hgb 31.5 pg (27.0-32.0); Mean Corpuscular Volume 94.8 fL (81-99); Mean Platelet Vol. 10.2 fl (6.2-12.0); Monocyte# 0.29 X10^3/uL; NRBC Flagged by Analyzer 0 % (0-5); Neutrophil # 2.09 X10^3/uL (2.7-7.7); Neutrophil % 57.5 % (47-70); Platelet Count 248 K/mm3 (150-450); RBC Distribution Width CV 13.9 % (11.6-14.6); RBC Distribution Width SD 47.9 fl (35.1-43.9); Red Blood Count 3.84 M/mm3 (4.2-5.4); White Blood Count 3.6 K/mm3 (4.4-11.0)
[2018-12-17 14:09] LABS: ALB/GLOB Ratio 1.1 RATIO (0.9-2.4); AST(SGOT) 16 U/L (15-37); Alanine Aminotransfer ALT/SGPT 18 U/L (13-56); Albumin, Serum 3.7 g/dL (3.2-5.0); Alkaline Phosphatase 64 U/L (45-117); Anion Gap 4 (5-15); BUN 15 mg/dL (7-18); BUN/Creat Ratio 17.1 RATIO (10-20); Calcium,Total 9.4 mg/dL (8.5-10.1); Chloride 109 mmol/L (98-107); Creatinine, Serum 0.88 mg/dL (0.55-1.02); EST Glomerular Filtration Rate 67 mL/min (>60); Est Glom Filt Rate - Afr Amer 81 mL/min (>60); Globulin 3.3 g/dL (2.2-4.2); Glucose 89 mg/dL (74-106); Potassium 4.1 mmol/L (3.5-5.1); Sodium Level 142 mmol/L (136-145)
== END ==
PROVIDERS: Family Provider Family Medicine; PCP Family Medicine; Referring Provider Internal Medicine Rheumatology; Visit Provider Internal Medicine Rheumatology
DX: M06.4 Inflammatory polyarthropathy (principal); Z79.899 Other long term (current) drug therapy; M35.00 Sjogren syndrome, unspecified; M51.37 Other intervertebral disc degeneration, lumbosacral region; E78.5 Hyperlipidemia, unspecified; J44.9 Chronic obstructive pulmonary disease, unspecified; N39.46 Mixed incontinence
CPT/HCPCS: 36415; 80053; 85025

== ENCOUNTER → 2019-03-19 11:59 | Outpatient (CLI) | payer MEDICARE, OTHER, SELFPAY ==
[2018-10-15 14:14] VITALS: BMI 24.0
[2019-03-19 14:25] LABS: Absolute Neutrophil Count 2.7 X10^3/uL (2.0-7.7); Basophil# 0.04 X10^3/uL; Eosinophil# 0.18 X10^3/uL; Eosinophils% 4.3 % (0-5); Hematocrit 38.6 % (37-47); Hemoglobin 12.4 g/dL (12.0-15.0); Lymphocyte % 21.6 % (19-41); Mean Corp Hgb Conc 32.1 g/dL (32-36); Mean Corpuscular Hgb 31.2 pg (27.0-32.0); Mean Corpuscular Volume 97.2 fL (81-99); Mean Platelet Vol. 10.6 fl (6.2-12.0); Monocyte# 0.28 X10^3/uL; Monocyte% 6.7 % (0-10); NRBC Flagged by Analyzer 0 % (0-5); Neutrophil # 2.74 X10^3/uL (2.7-7.7); Neutrophil % 65.9 % (47-70); Platelet Count 264 K/mm3 (150-450); RBC Distribution Width CV 13.7 % (11.6-14.6); RBC Distribution Width SD 48.7 fl (35.1-43.9); Red Blood Count 3.97 M/mm3 (4.2-5.4); White Blood Count 4.2 K/mm3 (4.4-11.0)
[2019-03-19 14:49] LABS: ALB/GLOB Ratio 1.2 RATIO (0.9-2.4); AST(SGOT) 19 U/L (15-37); Alanine Aminotransfer ALT/SGPT 21 U/L (13-56); Albumin, Serum 4.2 g/dL (3.2-5.0); Alkaline Phosphatase 62 U/L (45-117); Anion Gap 6 (5-15); BUN 13 mg/dL (7-18); BUN/Creat Ratio 14.5 RATIO (10-20); Calcium,Total 9.4 mg/dL (8.5-10.1); Chloride 107 mmol/L (98-107); EST Glomerular Filtration Rate 65 mL/min (>60); Est Glom Filt Rate - Afr Amer 78 mL/min (>60); Globulin 3.4 g/dL (2.2-4.2); Glucose 78 mg/dL (74-106); Potassium 4.1 mmol/L (3.5-5.1); Protein, Total 7.6 g/dL (6.4-8.2); Sodium Level 141 mmol/L (136-145)
== END ==
PROVIDERS: Family Provider Family Medicine; PCP Family Medicine; Referring Provider Internal Medicine Rheumatology; Visit Provider Internal Medicine Rheumatology
DX: M06.4 Inflammatory polyarthropathy (principal); Z79.899 Other long term (current) drug therapy; M35.00 Sjogren syndrome, unspecified; M51.37 Other intervertebral disc degeneration, lumbosacral region; E78.5 Hyperlipidemia, unspecified; J44.9 Chronic obstructive pulmonary disease, unspecified; N39.46 Mixed incontinence
CPT/HCPCS: 36415; 80053; 85025

== ENCOUNTER → 2019-06-13 08:28 | Outpatient (CLI) | payer MEDICARE, OTHER, SELFPAY ==
[2019-04-16 13:39] VITALS: BMI 24.1
--- NOTE | 2019-06-13 08:31 | BD_ITS ---
STUDY: DUAL ENERGY X-RAY ABSORPTIOMETRY / DXA REASON FOR EXAM: Female, 78 years old. 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 COMPARISON: Comparison is made with prior examination dated May 13, 2014. FINDINGS: Lumbar Spine (L1-L4): g/cm2 (1.089) / T-score (-0.6) / Z-score (1.2) Findings are suggestive of normal bone density with a low fracture risk. Left Femur Total: g/cm2 (0.870) / T-score (-1.1) / Z-score (0.8) Left Femoral Neck: g/cm2 (0.845) / T-score (-1.4) / Z-score (0.6) Right Femur Total: g/cm2 (0.862) / T-score (-1.2) / Z-score (0.7) Right Femoral Neck: g/cm2 (0.818) / T-score (-1.6) / Z-score (0.4) The T-Scores on the most recent prior examination were: Lumbar Spine (L1-L4): There has been worsening of bone density since the previous examination. Left Femur Total: which represents an improvement of 0.6%. Right Femur Total: which represents a worsening of 1.9%. BD/Dexa Bone Density Study IMPRESSION: The patient is considered osteopenic as outlined below according to World Pato Organization (WHO) criteria with a moderate fracture risk. There has been worsening of bone density since the previous examination. Reference Information: The T-score is the number of standard deviations above or below the standard which is normal for young adults at their peak bone mineral density. The World Health Organization (WHO) interprets the T-scores as follows: Above -1 Normal bone density Between -1 and -2.5 Osteopenia Equal to / or below -2.5 Osteoporosis As a practical clinical guideline, osteopenia may be graded as follows: Mild -1 through -1.5 Moderate -1.6 through -2.0 Severe -2.1 through -2.4 The Z-score is the number of standard deviations above or below age-matched controls. A Z-score of less than -1.5 would be considered abnormal. References: 1. NIH Osteoporosis and Related Bone Diseases http://www.osteo.org 2. International Society for Clinical Densitometry http://www.iscd.org 3. National Osteoporosis Foundation http://www.nof.org Electronically Signed: Jayme Talamantes, at 13:36 EST , Service support ,
== END ==
PROVIDERS: PCP Family Medicine; Referring Provider Family Medicine; Visit Provider Family Medicine
DX: Z12.31 Encounter for screening mammogram for malignant neoplasm of breast (principal); Z78.0 Asymptomatic menopausal state
CPT/HCPCS: 77080

== ENCOUNTER → 2019-06-13 09:00 | Outpatient (CLI) | payer MEDICARE, OTHER, SELFPAY ==
[2019-04-16 13:39] VITALS: BMI 24.1
[2019-06-13 10:23] LABS: Hematocrit 38.4 % (37-47); Hemoglobin 12.3 g/dL (12.0-15.0); Mean Corpuscular Hgb 30.7 pg (27.0-32.0); Mean Corpuscular Volume 95.8 fL (81-99); Platelet Count 299 K/mm3 (150-450); RBC Distribution Width CV 13.3 % (11.6-14.6); RBC Distribution Width SD 46.6 fl (35.1-43.9); Red Blood Count 4.01 M/mm3 (4.2-5.4); White Blood Count 4.1 K/mm3 (4.4-11.0)
[2019-06-13 10:41] LABS: ALB/GLOB Ratio 1.1 RATIO (0.9-2.4); AST(SGOT) 14 U/L (15-37); Alanine Aminotransfer ALT/SGPT 18 U/L (13-56); Albumin, Serum 3.8 g/dL (3.2-5.0); Alkaline Phosphatase 65 U/L (45-117); Anion Gap 2 (5-15); BUN 15 mg/dL (7-18); BUN/Creat Ratio 17.3 RATIO (10-20); Chloride 111 mmol/L (98-107); Cholesterol 210 mg/dL (200); Creatinine, Serum 0.86 mg/dL (0.55-1.02); EST Glomerular Filtration Rate 68 mL/min (>60); Est Glom Filt Rate - Afr Amer 82 mL/min (>60); Globulin 3.4 g/dL (2.2-4.2); Glucose 94 mg/dL (74-106); High Density Lipoprotein 66 mg/dL; Protein, Total 7.2 g/dL (6.4-8.2); Sodium Level 143 mmol/L (136-145); Triglycerides 85 mg/dL; Very Low Density Lipoprotein 17 mg/dL (5-40)
== END ==
PROVIDERS: PCP Family Medicine; Referring Provider Family Medicine; Visit Provider Family Medicine
DX: Z00.00 Encounter for general adult medical examination without abnormal findings (principal); E78.00 Pure hypercholesterolemia, unspecified; Z78.0 Asymptomatic menopausal state
CPT/HCPCS: 36415; 77080; 80053; 80061; 85027

== ENCOUNTER → 2019-10-21 12:24 | Outpatient (CLI) | payer MEDICARE, OTHER, SELFPAY ==
[2019-04-16 13:39] VITALS: BMI 24.1
--- NOTE | 2019-10-21 12:27 | BI_ITS ---
MAMMOGRAPHY - BILATERAL SCREENING REASON FOR EXAM: Female, 78 years old. Routine annual screening examination. PERTINENT HISTORY: Sister with breast cancer. Aunt with breast cancer. Bilateral breast implants. TECHNIQUE: Digital bilateral breast eliud (3D mammographic acquisition) in the CC and MLO projections. 2-D mediolateral oblique (MLO) and craniocaudad (CC) views of both breasts were obtained. CAD: Full Field Digital Mammography with Computer Added Detection was performed. COMPARISON: Comparison is made with prior study dated October 19, 2018 and July 28, 2017. FINDINGS: Breast Composition: The breasts are heterogeneously dense, which may obscure small masses. There are no dominant masses or suspicious calcifications. Stable appearance of the bilateral breasts. No other significant abnormalities are identified. There has been no significant change since the prior study. BI/SCREEN MAMM (CAD) W/ELIUD BILAT IMPRESSION: Stable bilateral screening mammogram. Yearly follow-up mammogram recommended. (A) ASSESSMENT CATEGORY: BIRADS Category 2: Benign. A letter regarding these results will be sent to the patient by the facility within 30 days. Approximately 10% of breast cancers are not detected by mammography. A normal mammogram should not delay biopsy of a clinically suspicious abnormality. [id number] Electronically Signed: Jayme Talamantes, at 14:14 EDT , Service support ,
== END ==
PROVIDERS: PCP Family Medicine; Referring Provider Family Medicine; Visit Provider Family Medicine
DX: Z12.31 Encounter for screening mammogram for malignant neoplasm of breast (principal); Z78.0 Asymptomatic menopausal state
CPT/HCPCS: 77063; 77067

== ENCOUNTER → 2020-06-17 10:55 | Outpatient (CLI) | payer MEDICARE, OTHER, SELFPAY ==
[2020-06-17 12:41] LABS: Absolute Lymphocyte Count 1.21 X10^3/uL (0.83-4.51); Absolute Neutrophil Count 2.2 X10^3/uL (2.0-7.7); Basophil# 0.04 X10^3/uL; Eosinophil# 0.18 X10^3/uL; Eosinophils% 4.5 % (0-5); Hematocrit 39.2 % (37-47); Hemoglobin 12.5 g/dL (12.0-15.0); Lymphocyte # 1.21 X10^3/ul (4.0); Lymphocyte % 30.5 % (19-41); Mean Corp Hgb Conc 31.9 g/dL (32-36); Mean Corpuscular Hgb 29.2 pg (27.0-32.0); Mean Corpuscular Volume 91.6 fL (81-99); Mean Platelet Vol. 10.3 fl (6.2-12.0); Monocyte# 0.29 X10^3/uL; Monocyte% 7.3 % (0-10); NRBC Flagged by Analyzer 0 % (0-5); Neutrophil # 2.23 X10^3/uL (2.7-7.7); Neutrophil % 56.2 % (47-70); Platelet Count 292 K/mm3 (150-450); RBC Distribution Width CV 13.4 % (11.6-14.6); RBC Distribution Width SD 45.4 fl (35.1-43.9); Red Blood Count 4.28 M/mm3 (4.2-5.4)
[2020-06-17 13:05] LABS: Vitamin D,25 Hydroxy 34.6 ng/mL
[2020-06-17 13:14] LABS: ALB/GLOB Ratio 1.1 RATIO (0.9-2.4); AST(SGOT) 17 U/L (15-37); Alanine Aminotransfer ALT/SGPT 19 U/L (13-56); Albumin, Serum 3.8 g/dL (3.2-5.0); Alkaline Phosphatase 75 U/L (45-117); Anion Gap 4 (5-15); BUN 17 mg/dL (7-18); BUN/Creat Ratio 21.3 RATIO (10-20); CRP < 2.90 mg/L (0.0-3.0); Calcium,Total 9.1 mg/dL (8.5-10.1); Chloride 108 mmol/L (98-107); EST Glomerular Filtration Rate 74 mL/min (>60); Est Glom Filt Rate - Afr Amer 89 mL/min (>60); Globulin 3.5 g/dL (2.2-4.2); Glucose 89 mg/dL (74-106); Potassium 3.9 mmol/L (3.5-5.1); Protein, Total 7.3 g/dL (6.4-8.2); Sodium Level 141 mmol/L (136-145)
== END ==
PROVIDERS: PCP Family Medicine; Referring Provider Family Medicine; Visit Provider Family Medicine
DX: M06.4 Inflammatory polyarthropathy (principal); D70.9 Neutropenia, unspecified; M85.80 Other specified disorders of bone density and structure, unspecified site
CPT/HCPCS: 36415; 80053; 82306; 85025; 86140; 97530

== ENCOUNTER 2020-07-06 08:59 | Outpatient (RCR) | payer MEDICARE, OTHER, SELFPAY | END 2020-07-06 23:59 | LOC: IMMUN 08:59 | PROVIDERS: PCP Family Medicine; Referring Provider Family Medicine; Visit Provider Family Medicine | DX: Z23 Encounter for immunization (principal) | CPT/HCPCS: 0011A; 0012A; 97530 ==

== ENCOUNTER 2020-07-06 12:00 | Outpatient (RCR) | payer MEDICARE, OTHER, SELFPAY ==
--- NOTE | 2020-06-15 17:18 | HP.OTEVAL ---
Patient's Visit Information BENJY RIVERA is a 79 year old F, referred to Occupational Therapy by Dr. Ze Perez MD, with a diagnosis of hand arthritis. Date of Evaluation: 06/15/20 Occupational Therapist: Ethel Pace, OTR/Dashawn, CHT - Subjective This 79 year old female was seen for OT eval with dx of hand arthritis- pt states she has had issues. pt sates she has been through a lot with her husbands care. pt sates after her passed she had to move and after lifting and moving she continues to have some discomfort in her hands. pt would like to know what she can do to limit he hand pain. - Pain right hand 3 Pain Intensity Range: 4 - ROM CMC: right 20 left 15 MP: right 50 left 55 IP: right 60 left 40 Radial Abduction: right 45 left 40 ROM Comments: pt demo with good digit ROM. pt demo with MP hyper-ext with use of grasp/release - Strength Canvas Baster Jumpbasting: right 30# left 35# Lateral Pinch: right 6# left 5# Tripod Pinch: right 6# left 3# - Sensation Sensation Comments: denies - Quick DASH-Disab of Arm,Shoulder& Hand Quick DASH Score: 43.1800 - Goals Goal:: pt will demo the ability to keep good thumb posture ( no MP hyper-ext) with use of grasp of small, med and large objects by d/c Goal:: pt will report no pain greater than 1/10 with use of right hand with ADLs and IADLs by d/c Goal:: Pt will demonstrate understanding of joint protection and adaptive equipment to decrease joint stress while performing ADL tasks by d/c Goal:: Pt will demo ind. Donning/doffing of custom orthosis by end of 1st session. Pt will demonstrate understanding of orthosis use and precautions by end of 1st session and demonstrate knowledge of returning to clinic if orthosis needs adj. to increase comfort by end of 1st session. - Rehabilitation General Assessment: pt demo with a right thumb instability and pain around cmc region this is limiting pts ind. with IADls and ADls. pt would benefit from skilled OT services 1-2x week for 4 weeks to assist pt in protecting joints and increasing pts ind. Today therapist jerzy custom right hand cmc orthosis with mp included to limit thumb instability with daily tasks. therapist ed. pt on use, skin care and precautions. pt agree to POC. Rehabilitation Potential: Good - Anticipated Interventions A/AAROM/PROM, Strengthening, Modalities, Orthoses, Joint Protection/Energy Conservation, Ergonomic Education, Home Program - Visit Plan Frequency: 1-2x /Week Duration: 4 Weeks General Plan: ed. pt on joint protection. ed. pt on thumb care and initiate thumb stabilization ex. Supportive orthosis as needed. ad. eq. as needed TEXT: Thank you for the opportunity to evaluate your patient. For Medicare and Medicare HMO plans, please review the plan of care and approve it. It will need to be FAXED BACK to us at [phone] for Medicare purposes. Please let me know if there are questions or concerns regarding this plan of care. Physician Signature: Date:
--- NOTE | 2020-07-06 12:24 | HP.OTDCSUM ---
It has been my pleasure to treat BENJY RIVERA under orders from Dr. Ze Perez MD, for the diagnosis of hand arthritis for a total of 6 visit(s). Please see the following information for a summary of their discharge status. % Improvement: 90 Objective/Function: Therapist has ed. pt on joint protection, supportive bracing. along with isometric thumb ex. to assist in thumb stabilization with use of pinch tasks. pt is looking into a thumb stabilzation brace to wear during cleaning and shopping tasks. Patient Goals: Decrease Pain, Use Hand/Wrist/Arm Normally Again Goal:: pt will demo the ability to keep good thumb posture ( no MP hyper-ext) with use of grasp of small, med and large objects by d/c Goal:: pt will report no pain greater than 1/10 with use of right hand with ADLs and IADLs by d/c Goal:: Pt will demonstrate understanding of joint protection and adaptive equipment to decrease joint stress while performing ADL tasks by d/c Goal:: Pt will demo ind. Donning/doffing of custom orthosis by end of 1st session. Pt will demonstrate understanding of orthosis use and precautions by end of 1st session and demonstrate knowledge of returning to clinic if orthosis needs adj. to increase comfort by end of 1st session. Plan: D/C with [facility] Discharge Comments: pt was seen in OT for 6 sessions ed, pt on joint protction, thumb stabilization ex, and supportive bracing. pt demo understanding of [facility]P and need of modification of the way she does her daily tasks. pt has met OT goals and is D/C with [facility] If there are questions or concerns regarding this patient's occupational therapy, please fell free to call me at [phone]. Thank you for the referral of this patient. Sincerely, Ethel Pace, OTR/L, CHT
== END 2020-07-06 19:00 | disposition home or self-care (01) ==
LOC: OT 12:00
PROVIDERS: PCP Family Medicine; Referring Provider Family Medicine; Visit Provider Family Medicine
DX: M19.041 Primary osteoarthritis, right hand (principal); S63.10 Unspecified subluxation and dislocation of thumb
CPT/HCPCS: 97110; 97166; 97530; 97760; 97763

== ENCOUNTER → 2020-10-23 11:53 | Outpatient (CLI) | payer MEDICARE, OTHER, SELFPAY ==
--- NOTE | 2020-10-23 12:21 | BI_ITS ---
MAMMOGRAPHY - BILATERAL SCREENING REASON FOR EXAM: Female, 79 years old. Routine annual screening examination. PERTINENT HISTORY: Sister with breast cancer. Aunts with breast cancer. History of bilateral breast implants. TECHNIQUE: Digital bilateral breast eliud (3D mammographic acquisition) in the CC and MLO projections. 2-D mediolateral oblique (MLO) and craniocaudad (CC) views of both breasts were obtained. CAD: Full Field Digital Mammography with Computer Added Detection was performed. COMPARISON: Comparison is made with prior study dated 06/22/2019 and 10/19/2018. FINDINGS: Breast Composition: The breasts are heterogeneously dense, which may obscure small masses. There are no dominant masses or suspicious calcifications. Stable appearance of the bilateral breast implants. No other significant abnormalities are identified. There has been no significant change since the prior study. BI/SCRN MAMM (CAD)W/ELIUD BILAT IMPRESSION: Stable bilateral screening mammogram. Yearly follow-up mammogram recommended. (A) ASSESSMENT CATEGORY: BIRADS Category 2: Benign. A letter regarding these results will be sent to the patient by the facility within 30 days. Approximately 10% of breast cancers are not detected by mammography. A normal mammogram should not delay biopsy of a clinically suspicious abnormality. [id number] Electronically Signed: Jayme Talamantes MD at 13:23 EDT , Service support ,
== END ==
PROVIDERS: PCP Family Medicine; Referring Provider Family Medicine; Visit Provider Family Medicine
DX: Z12.31 Encounter for screening mammogram for malignant neoplasm of breast (principal); Z80.3 Family history of malignant neoplasm of breast
CPT/HCPCS: 77063; 77067

== ENCOUNTER → 2021-04-27 13:47 | Outpatient (CLI) | payer MEDICARE, OTHER, SELFPAY | PROVIDERS: Referring Provider Family Medicine; Visit Provider Family Medicine | DX: Z20.828 Contact with and (suspected) exposure to other viral communicable diseases (principal); Z20.822 Contact with and (suspected) exposure to COVID-19 | CPT/HCPCS: 87633; 87635; U0005; U0003 ==

== ENCOUNTER → 2021-10-25 | Outpatient (CLI) | payer MEDICARE, OTHER, SELFPAY ==
--- NOTE | 2021-10-25 12:23 | BI_ITS ---
MAMMOGRAPHY - BILATERAL SCREENING REASON FOR EXAM: Female, 80 years old. Routine annual screening examination. PERTINENT HISTORY: Sister with breast cancer. Aunt with breast cancer. Bilateral breast implants. TECHNIQUE: Digital bilateral breast eliud (3D mammographic acquisition) in the CC and MLO projections. 2-D mediolateral oblique (MLO) and craniocaudad (CC) views of both breasts were obtained. CAD: Full Field Digital Mammography with Computer Added Detection was performed. COMPARISON: Prior studies dated 10/23/2020, 10/21/2019, 10/19/2018, 07/28/2017. FINDINGS: Breast Composition: The breasts are heterogeneously dense, which may obscure small masses. There are no dominant masses or suspicious calcifications. Stable bilateral breast implants. No other significant abnormalities are identified. There has been no significant change since the prior study. BI/SCRN MAMM (CAD)W/ELIUD BILAT IMPRESSION: Stable bilateral screening mammogram. Yearly follow-up mammogram recommended. (A) ASSESSMENT CATEGORY: BIRADS Category 2: Benign. A letter regarding these results will be sent to the patient by the facility within 30 days. Approximately 10% of breast cancers are not detected by mammography. A normal mammogram should not delay biopsy of a clinically suspicious abnormality. [id number] Electronically Signed: Logan Paris, at 14:58 EDT ,
== END | disposition home or self-care (01) ==
LOC: OPBI 12:21
PROVIDERS: PCP Family Medicine; Visit Provider Family Medicine
DX: Z12.31 Encounter for screening mammogram for malignant neoplasm of breast (principal); Z98.82 Breast implant status
CPT/HCPCS: 77063; 77067

== ENCOUNTER → 2021-12-15 | Outpatient (CLI) | payer MEDICARE, OTHER, SELFPAY ==
--- NOTE | 2021-12-15 06:50 | ECHOD_ITS ---
Reason For Study: Dyspnea/SOB Procedure This was a 2D Doppler, Color Flow transthoracic echocardiogram. Exam performed in department. Left Ventricle Normal LV size. Left ventricular systolic function is normal. The estimated ejection fraction is 60 %. Stage 1 diastolic dysfunction. No regional wall motion abnormalities noted. Right Ventricle Normal RV size. Normal systolic function. Atria Normal left atrium. Normal right atrium. Mitral Valve Normal mitral valve. Tricuspid Valve Normal tricuspid valve. Mild (1+) tricuspid valve insufficiency. Pulmonary artery systolic pressure is 30 mmHg. Aortic Valve Normal aortic valve. Trisinus/trileaflet aortic valve. Pulmonic Valve The pulmonic valve is not well visualized. Great Vessels Normal aortic root. The pulmonary artery is normal size. Normal inferior vena cava. Pericardium/Pleural No pericardial effusion. MMode/2D Measurements & Calculations LVIDd: 4.0 cm IVSd: 1.1 cm Ao root diam: 3.0 cm LVIDs: 1.7 cm LVPWd: 1.1 cm RVDd: 2.2 cm FS: 57.5 % LAV(MOD-bp): 24.4 ml LVAd ap4: 19.1 cm2 SV(MOD-sp4): 30.3 ml LAV(MOD-bp) Indexed: 14.7 ml/m2 LVLd ap4: 7.0 cm LAV(MOD-sp2): 32.6 ml EDV(MOD-sp4): 43.6 ml LAV(MOD-sp4): 12.8 ml EDV(sp4-el): 44.1 ml LVAs ap4: 9.5 cm2 LVLs ap4: 5.8 cm ESV(MOD-sp4): 13.3 ml ESV(sp4-el): 13.3 ml EF(MOD-sp4): 69.6 % EF(sp4-el): 69.8 % SV(sp4-el): 30.8 ml LA A4 area: 7.3 cm2 LA dimension(2D): 3.0 cm RA A4 area: 5.3 cm2 Doppler Measurements & Calculations MV E max ulises: 51.5 cm/sec Lat Peak E' Ulises: 7.9 cm/sec Med Peak E' Ulises: 5.4 cm/sec MV A max ulises: 101.2 cm/sec E/E' lat: 6.6 E/E' med: 9.5 MV E/A: 0.51 Ao V2 max: 100.1 cm/sec LV V1 max: 86.6 cm/sec PA V2 max: 71.9 cm/sec Ao max P.0 mmHg LV V1 max P.0 mmHg Ao V2 mean: 72.0 cm/sec Ao mean P.2 mmHg Ao V2 VTI: 22.7 cm TR max ulises: 254.8 cm/sec TR max P.0 mmHg ECHO/Echo Complete Interpretation Summary Normal LV size. Left ventricular systolic function is normal. The estimated ejection fraction is 60 %. Stage 1 diastolic dysfunction. Pulmonary artery systolic pressure is 30 mmHg. Ordering Physician: Laz Garsia Referring Physician: Maria Elena Mary Performed By: Ayala Lopez, LEANDRO, RVT
--- NOTE | 2021-12-15 17:40 | STRESSREP_ITS ---
Stress Test Report Pharmacologic myocardial perfusion stress test. 81-year-old lady with a history of chest pain. Stress protocol: Resting EKG demonstrates normal sinus rhythm with a rate of 86 bpm normal intervals are noted resting blood pressure is 122/82 mmHg.0.4 mg of regadenoson was infused per usual protocol followed by rapid intravenous saline flush in jection continuous EKG monitoring was performed. The maximum heart rate attained was noted to be 114 bpm which was 81% of max impacted heart rate the maximum workload was 1 metabolic equivalent. At rest there were no ST or T wave changes noted to suggest abnormal flow reserve and at peak infusion nonspecific ST changes were noted with did not meet the criteria for ischemia. No clinical angina was noted. The final blood pressure was 122/82 mmHg. Myocardial perfusion protocol. 11.4 mCi of technetium 99m sestamibi was injected at rest. 0.4 mg of regadenoson was infused per usual protocol. At peak infusion 33.7 mCi of technetium 99m sestamibi was injected stress images were obtained stress and rest images were reconstructed and compared in the short axis vertical long and horizontal long axis. Gated images were also obtained. Perfusion SPECT analysis: Review of the stress images demonstrate normal uptake of tracer noted in all areas of the myocardium. The resting images similar demonstrate normal uptake of tracer noted in all areas of the myocardium. No areas of reversibility are noted suggest ischemia and no previous infarct is noted. Gated SPECT analysis: The gated ejection fraction is 76%. Conclusion: Normal pharmacologic myocardial perfusion stress test. Preserved ejection fraction.
== END | disposition home or self-care (01) ==
LOC: CVS 06:46
PROVIDERS: PCP Family Medicine; Visit Provider Internal Medicine Cardiovascular Disease
DX: R06.09 Other forms of dyspnea (principal)
CPT/HCPCS: 78452; 93017; 93306; A9500; A4216; J2785

== ENCOUNTER → 2022-03-11 | Outpatient (CLI) | payer MEDICARE, OTHER, SELFPAY ==
--- NOTE | 2022-03-12 07:01 | PFT ---
INTRODUCTION: The patient is an 81-year-old female that presents for pulmonary function studies secondary to a diagnosis of COPD. Respiratory therapy reported good patient effort. Bronchodilators were used during testing. INTERPRETATION: Forced expiration spirometry demonstrates the presence of a mild large airways obstructive ventilatory defect. There was no significant response to aerosolized bronchodilators, based upon strict ATS criteria. Spirograms are of good quality but do not plateau indicating slow emptying of the lungs. Body plethysmography was performed and revealed lung volumes to be within normal limits. Diffusing capacity by single breath CO is also within normal limits. IMPRESSION: Irreversible mild large airways obstructive ventilatory defect with preserved lung volumes and diffusing capacity.
== END | disposition home or self-care (01) ==
LOC: PSN 10:24
PROVIDERS: PCP Family Medicine; Referring Provider Nurse Practitioner Acute Care; Visit Provider Nurse Practitioner Acute Care
DX: J44.9 Chronic obstructive pulmonary disease, unspecified (principal)
CPT/HCPCS: 94060; 94726; 94729

== ENCOUNTER → 2022-03-15 | Outpatient (CLI) | payer MEDICARE, OTHER, SELFPAY ==
[2022-03-15 11:00] VITALS: PULSE 110; PULSE 111; PULSE 113; PULSE 118; PULSE 120; PULSE 121; PULSE 96; PULSE 98; O2SAT 95; O2SAT 96; O2SAT 97; O2SAT 98
--- NOTE | 2022-03-15 15:14 | WT_ITS ---
PSN 6 Minute Walk Test 6 Minute Walk Test 6 Minute Walk Test: 6 Minute Walk Test PSN:6-Minute Walk Test Start: 03/15/22 11:06 Freq: Status: Active Protocol: [id number].6MINW Document 03/15/22 11:00 [facility] (Rec: 03/15/22 11:10 [facility] [id number]) 6 Minute Walk Test Date Performed 03/15/22 Time Performed 11:00 Height 5 ft 4 in Weight: 60.781 kg Weight in Pounds 134.[address]: Dilma OLIVEIRA Assistive device used: None Pre-test Oxygen Delivery Method Room Air Pulse Ox (%) 98 Pulse Rate (60-100 beats/min) 98 Dyspnea Chato Scale (0-10) 0 Exertion Chato Scale (6-20) 6 1st minute Oxygen Delivery Method Room Air Pulse Ox (%) 96 Pulse Rate (60-100 beats/min) 110 H 2nd minute Oxygen Delivery Method Room Air Pulse Ox (%) 97 Pulse Rate (60-100 beats/min) 111 H 3rd minute Oxygen Delivery Method Room Air Pulse Ox (%) 95 Pulse Rate (60-100 beats/min) 113 H 4th minute Oxygen Delivery Method Room Air Pulse Ox (%) 98 Pulse Rate (60-100 beats/min) 118 H 5th minute Oxygen Delivery Method Room Air Pulse Ox (%) 98 Pulse Rate (60-100 beats/min) 121 H 6th minute Oxygen Delivery Method Room Air Pulse Ox (%) 96 Pulse Rate (60-100 beats/min) 120 H Dyspnea Chato Scale (0-10) 1 Exertion Chato Scale (6-20) 8 Post-test Oxygen Delivery Method Room Air Pulse Ox (%) 98 Pulse Rate (60-100 beats/min) 96 Full Laps Walked 18 Partial Lap, Number of Tiles Walked 27 Total Distance Walked (ft) 1089 Interpretation Interpretation: The patient was able to ambulate 1089 feet over the course of 6 minutes on room air with no assistive devices or breaks. The patient experienced no significant desaturation, but did have persistent tachycardia throughout testing with a peak heart rate of 121 bpm. These findings are consistent with a cardiovascular limitation exercise tolerance. Recommendations Recommendations: No supplemental oxygen is indicated at this time.
== END | disposition home or self-care (01) ==
LOC: PSN 10:43
PROVIDERS: PCP Family Medicine; Referring Provider Nurse Practitioner Acute Care; Visit Provider Nurse Practitioner Acute Care
DX: J44.9 Chronic obstructive pulmonary disease, unspecified (principal)
CPT/HCPCS: 94618

== ENCOUNTER → 2022-10-07 | Outpatient (CLI) | payer MEDICARE, OTHER, SELFPAY ==
--- NOTE | 2022-10-07 08:54 | RAD_ITS ---
STUDY: X-RAY - RIGHT KNEE REASON FOR EXAM: Female, 81 years old. pain TECHNIQUE: 4 view(s) of the knee. COMPARISON: None. FINDINGS: Normal visualized distal femur. Normal visualized proximal tibia and fibula. Normal proximal tibiofibular articulation. There is no demonstrated fracture. Normal medial femorotibial compartment. Normal lateral femorotibial compartment. Normal patellofemoral articulation. There is no demonstrated joint effusion. The soft tissue structures are unremarkable. RAD/Knee 4 or More Views IMPRESSION: Normal x-ray examination of the knee. Electronically Signed: Domenico Zeng MD at 16:20 EDT ,
--- NOTE | 2022-10-07 09:10 | RAD_ITS ---
STUDY: X-RAY - LEFT KNEE REASON FOR EXAM: Female, 81 years old. Pain and soreness for one month. Knees give out while walking sometimes. TECHNIQUE: 4 view(s) of the knee. COMPARISON: None. FINDINGS: Normal visualized distal femur. Normal visualized proximal tibia and fibula. Normal proximal tibiofibular articulation. There is no acute fracture, dislocation or destructive osseous pathology. There is mild degenerative arthrosis of the medial femorotibial compartment. Normal lateral femorotibial compartment. There is mild degenerative arthrosis of the patellofemoral articulation. There is no demonstrated joint effusion. The soft tissue structures are unremarkable. RAD/Knee 4 or More Views IMPRESSION: Mild arthrosis of the left knee. Electronically Signed: Lance Zhou DO at 16:19 EDT ,
== END | disposition home or self-care (01) ==
LOC: RAD 08:46
PROVIDERS: PCP Family Medicine; Referring Provider Family Medicine; Visit Provider Family Medicine
DX: M25.561 Pain in right knee (principal); M25.562 Pain in left knee
CPT/HCPCS: 73560; 73564

== ENCOUNTER → 2022-10-26 | Outpatient (CLI) | payer MEDICARE, OTHER, SELFPAY ==
--- NOTE | 2022-10-26 12:07 | BI_ITS ---
MAMMOGRAPHY - BILATERAL SCREENING REASON FOR EXAM: Female, 81 years old. Routine annual screening examination. PERTINENT HISTORY: Sister with breast cancer. Aunt with breast cancer. Bilateral breast implants. TECHNIQUE: Digital bilateral breast eliud (3D mammographic acquisition) in the CC and MLO projections. 2-D mediolateral oblique (MLO) and craniocaudad (CC) views of both breasts were obtained. CAD: Full Field Digital Mammography with Computer Added Detection was performed. COMPARISON: Mammogram from 10/25/2021, 10/23/2020. FINDINGS: Breast Composition: The breasts are heterogeneously dense, which may obscure small masses. There are no dominant masses or suspicious calcifications. Stable bilateral breast implants. No other significant abnormalities are identified. There has been no significant change since the prior study. BI/SCRN MAMM (CAD)W/ELIUD BILAT IMPRESSION: Stable bilateral screening mammogram. Yearly follow-up mammogram recommended. (A) ASSESSMENT CATEGORY: BIRADS Category 2: Benign. A letter regarding these results will be sent to the patient by the facility within 30 days. Approximately 10% of breast cancers are not detected by mammography. A normal mammogram should not delay biopsy of a clinically suspicious abnormality. Electronically Signed: Logan Paris DO at 14:53 EDT ,
== END | disposition home or self-care (01) ==
LOC: OPBI 12:05
PROVIDERS: PCP Family Medicine; Referring Provider Family Medicine; Visit Provider Family Medicine
DX: Z12.31 Encounter for screening mammogram for malignant neoplasm of breast (principal); Z80.3 Family history of malignant neoplasm of breast
CPT/HCPCS: 77063; 77067

== ENCOUNTER 2022-10-31 12:00 | Outpatient (RCR) | payer MEDICARE, OTHER, SELFPAY ==
--- NOTE | 2022-10-11 15:17 | HP.PTEVAL ---
Patient's Visit Information BENJY MALIK is a 81 year old F referred to Physical Therapy by Dr. Maria Elena Mary MD with a diagnosis of LBP spondylosis w myelopathy. Date of Evaluation: 10/11/22 Physical Therapist: Jose Keller, PT, VALDEMAR, SCS, CSCS - Visit Plan Frequency: 2x /Week Duration: 6 Weeks - Subjective Mrs. Malik is a pleasant 81 yo who was referred to our care with a dx of spondylosis w/myelopathy. She states that she has had a longstanding LBP dating back to her late 20 and earlier 30's. She mentioned that she fell backwards down the stairs and hit her head to the point she cant sleep on her stomach. The second time she fell on her tailbone. She recalls having a L5/S1 disc removed in her late 30s and laminectomy but was sure of the details. 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 Any increase in ADL's seem to increase her low back pain. Walking for prolonged distance at times her knees seen to give out. - Pain Back Pain Intensity (Out of 10): 5 Pain Intensity Range: 2, 9 - Objective Upon standing patient demonstrates a r scoliosis. Her hips and leg length appear to be level. She is able to forward bend to were hands touch mid thigh then she has pain and pain upon arising. R SB increase LBP, Rotation to either side does not increase pain. Previous X-rays indicate diffuse DDD throughout lumbar spine. DTR are diminished at patella, Achilles and posterior tib. Negative slump and SLR. I did notice a weakness with L DF versus R. no other asymmetries were noted at this time. When I placed her in the prone position she had tenderness at T11-L1 over spinous processes and lower at L5-S1. - Balance/Special Test Scores Oswestry Low Back Score: 11 - Goals Goal 1:: Return DEMO HEP Goal Time Frame: 1 Week Goal 2:: Start a light Dynamic Strengthing programs. Goal Time Frame: 2 Weeks Goal 3:: Incorporate balance and gait training activities. Goal Time Frame: 2 Weeks - Rehabilitation Potential Physical Therapy Diagnosis: LBP with diffuse DDD, LE weakness Rehabilitation Potential: Good - Anticipated Interventions Patient/Client Instruction: Educate patient on: Condition, Plan of Care, Benefits of Fitness Program For the Purpose of:: To decrease pain, To improve ability to perform ADL's, To improve endurance, To improve balance, To improve safety with gait Therapeutic Exercise to Include: Strength training, Balance training, Agility training, Gait and locomotor training, Neuromotor development For the Purpose of:: To decrease pain, To increase ROM, To improve endurance, To improve balance, To improve safety with gait Functional Training to Include: ADL Training, Gait training For the Purpose of:: To improve endurance, To improve balance, To improve safety with gait Thank you for the opportunity to evaluate your patient. For Medicare and Medicare HMO plans, please review the plan of care and approve it. It will need to be FAXED BACK to us at [phone] for Medicare purposes. For Medicare only, by signing this I certify the plan of care. Please let me know if there are questions or concerns regarding this plan of care. Physician Signature: Date:
== END 2022-10-31 19:00 | disposition home or self-care (01) ==
LOC: PT 12:00
PROVIDERS: PCP Family Medicine; Referring Provider Family Medicine; Visit Provider Family Medicine
DX: M47.16 Other spondylosis with myelopathy, lumbar region (principal)
CPT/HCPCS: 97110; 97162; 97530

== ENCOUNTER → 2023-10-30 | Outpatient (CLI) | payer MEDICARE, OTHER, SELFPAY ==
--- NOTE | 2023-10-30 11:46 | BI_ITS ---
MAMMOGRAPHY - BILATERAL SCREENING REASON FOR EXAM: Female, 82 years old. Routine annual screening examination. PERTINENT HISTORY: Sisters with breast cancer. Aunts with breast cancer. TECHNIQUE: Digital bilateral breast eliud (3D mammographic acquisition) in the CC and MLO projections. 2-D mediolateral oblique (MLO) and craniocaudad (CC) views of both breasts were obtained. CAD: Full Field Digital Mammography with Computer Added Detection was performed. COMPARISON: Comparison is made with prior study dated October 26, 2022 and October 25, 2021. FINDINGS: Breast Composition: The breasts are heterogeneously dense, which may obscure small masses. There are no dominant masses or suspicious calcifications. Stable appearance of the bilateral breast implants. Stable small benign appearing bilateral axillary lymph nodes. No other significant abnormalities are identified. There has been no significant change since the prior study. BI/SCRN MAMM (CAD)W/ELIUD BILAT IMPRESSION: Stable bilateral screening mammogram. Yearly follow-up mammogram recommended. (A) ASSESSMENT CATEGORY: BIRADS Category 2: Benign. A letter regarding these results will be sent to the patient by the facility within 30 days. Approximately 10% of breast cancers are not detected by mammography. A normal mammogram should not delay biopsy of a clinically suspicious abnormality. [id number] Electronically Signed: Jayme Talamantes MD at 13:32 EDT ,
== END | disposition home or self-care (01) ==
LOC: OPBI 11:44
PROVIDERS: PCP Family Medicine; Referring Provider Family Medicine; Visit Provider Family Medicine
DX: Z12.31 Encounter for screening mammogram for malignant neoplasm of breast (principal); Z80.3 Family history of malignant neoplasm of breast
CPT/HCPCS: 77063; 77067

== ENCOUNTER → 2024-07-23 | Outpatient (CLI) | payer MEDICARE, OTHER, SELFPAY ==
[2024-07-23 16:01] LABS: Absolute Lymphocyte Count 1.47 X10^3/uL (0.83-4.51); Absolute Neutrophil Count 2.8 X10^3/uL (2.0-7.7); Basophil# 0.03 X10^3/uL; Basophil% 0.6 % (0-1); Eosinophil# 0.15 X10^3/uL; Eosinophils% 3.2 % (0-5); Hematocrit 36.8 % (37-47); Hemoglobin 11.9 g/dL (12.0-15.0); Lymphocyte # 1.47 X10^3/ul (0.83-4.51); Lymphocyte % 31.3 % (19-41); Mean Corp Hgb Conc 32.3 g/dL (32-36); Mean Corpuscular Hgb 30.1 pg (27.0-32.0); Mean Corpuscular Volume 93.2 fL (81-99); Monocyte# 0.26 X10^3/uL; Monocyte% 5.5 % (0-10); NRBC Flagged by Analyzer 0 % (0-5); Neutrophil # 2.77 X10^3/uL (2.7-7.7); Platelet Count 257 K/mm3 (150-450); RBC Distribution Width CV 13.4 % (11.6-14.6); RBC Distribution Width SD 45.6 fl (35.1-43.9); Red Blood Count 3.95 M/mm3 (4.2-5.4); White Blood Count 4.7 K/mm3 (4.4-11.0)
[2024-07-23 17:01] LABS: ALB/GLOB Ratio 1.5 RATIO (0.9-2.4); AST(SGOT) 21 U/L (<=31); Alanine Aminotransfer ALT/SGPT 11 U/L (<=34); Albumin, Serum 4.2 g/dL (3.4-4.8); Alkaline Phosphatase 77 U/L (35-104); Anion Gap 9 (5-15); BUN 21 mg/dL (4-19); BUN/Creat Ratio 23.8 RATIO (10-20); Calcium,Total 9.5 mg/dL (7.6-11.0); Carbon Dioxide 25.8 mmol/L (21.0-32.0); Chloride 106 mmol/L (98-108); Creatinine, Serum 0.86 mg/dL (0.70-1.20); EST Glomerular Filtration Rate 67 (>60); Globulin 2.7 g/dL (2.2-4.2); Glucose 123 mg/dL (70-99); Protein, Total 6.9 g/dL (5.9-8.4); Sodium Level 141 mmol/L (133-145); Total Bilirubin 0.36 mg/dL (0.00-1.30)
== END | disposition home or self-care (01) ==
LOC: LAB 14:05
PROVIDERS: PCP Family Medicine; Referring Provider Family Medicine; Visit Provider Family Medicine
DX: Z00.00 Encounter for general adult medical examination without abnormal findings (principal); H81.10 Benign paroxysmal vertigo, unspecified ear; N30.10 Interstitial cystitis (chronic) without hematuria; R53.83 Other fatigue
CPT/HCPCS: 36415; 80053; 84443; 85025

== ENCOUNTER → 2024-10-31 | Outpatient (CLI) | payer MEDICARE, OTHER, SELFPAY ==
--- NOTE | 2024-10-31 11:40 | BI_ITS ---
EXAM: SCRN MAMM (CAD)W/ELIUD BILAT DATE: 10/31/2024 CLINICAL HISTORY: F, Age 83 y/o , SCREENING Sisters with breast cancer. Aunts with breast cancer. TECHNIQUE: SCRN MAMM (CAD)W/ELIUD BILAT COMPARISON: Prior exam(s) dated October 30, 2023.. FINDINGS: TISSUE DENSITY: The breasts are heterogeneously dense, which may obscure small masses. Bilateral Breast Mammographic Findings: No significant masses, calcifications or other abnormalities are identified. No suspicious masses, areas of developing architectural distortion, or suspicious calcifications. There has been no significant interval change. BI/SCRN MAMM (CAD)W/ELIUD BILAT IMPRESSION: Stable examination. OVERALL FINAL ASSESSMENT BI-RADS 1: NEGATIVE. RECOMMEND ANNUAL MAMMOGRAPHIC SCREENING. RECOMMENDATION: Routine annual follow-up in 1 Year A letter with findings and recommendations will be mailed to the patient. Reading Location: [id number]
== END | disposition home or self-care (01) ==
LOC: OPBI 11:36
PROVIDERS: PCP Family Medicine; Referring Provider Family Medicine; Visit Provider Family Medicine
DX: Z12.31 Encounter for screening mammogram for malignant neoplasm of breast (principal); Z80.3 Family history of malignant neoplasm of breast
CPT/HCPCS: 77063; 77067

== ENCOUNTER → 2024-12-31 | Outpatient (CLI) | payer MEDICARE, OTHER, SELFPAY ==
[2024-12-31 17:55] LABS: Hematocrit 36.5 % (37-47); Hemoglobin 11.9 g/dL (12.0-15.0); Immature Granulocytes Count 0.020 X10^3/uL (0.0-0.0); Mean Corp Hgb Conc 32.6 g/dL (32-36); Mean Corpuscular Volume 93.1 fL (81-99); Mean Platelet Vol. 10.7 fl (6.2-12.0); NRBC Flagged by Analyzer 0 % (0-5); Platelet Count 266 K/mm3 (150-450); RBC Distribution Width CV 13.5 % (11.6-14.6); RBC Distribution Width SD 45.7 fl (35.1-43.9); Red Blood Count 3.92 M/mm3 (4.2-5.4); White Blood Count 3.9 K/mm3 (4.4-11.0)
[2024-12-31 18:29] LABS: AST(SGOT) 19 U/L (<=31); Alanine Aminotransfer ALT/SGPT 10 U/L (<=34); Albumin, Serum 4.4 g/dL (3.4-4.8); Alkaline Phosphatase 70 U/L (35-104); Anion Gap 10 (5-15); BUN 19 mg/dL (4-19); BUN/Creat Ratio 22.9 RATIO (10-20); Calcium,Total 9.5 mg/dL (7.6-11.0); Carbon Dioxide 25.4 mmol/L (21.0-32.0); Chloride 106 mmol/L (98-108); Ferritin 86 ng/mL (22-378); Globulin 2.5 g/dL (2.2-4.2); Glucose 93 mg/dL (70-99); Iron 72 ug/dL (50-170); Iron Binding Capacity,Total 277 ug/dL (250-450); Iron Binding Capacity,Unsat 205 ug/dL (228-428); Potassium 4.0 mmol/L (3.3-5.1); Vitamin B12 284 pg/mL (180-914)
== END | disposition home or self-care (01) ==
LOC: BFHLAB 15:47
PROVIDERS: PCP Family Medicine; Visit Provider Family Medicine
DX: D64.9 Anemia, unspecified (principal); R53.83 Other fatigue
CPT/HCPCS: 36415; 80053; 82607; 82728; 83540; 83550; 85025

== ENCOUNTER → 2025-01-03 | Outpatient (CLI) | payer MEDICARE, OTHER, SELFPAY ==
--- OUTSIDE RECORDS SUMMARY | 2025-01-03 05:59 | XMS RPT_ITS | CCD ---
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 Maria Elena Mary Primary Care Provider [phone] Marzena Munguia Attending Provider Unavailable Dr. Laz Garsia Attending Provider [phone] Maria Elena Mary Referring Provider Dr. Shawn Perez Referring Provider [phone] Dr. Jean Marie Crump Attending Provider Dr. Laz Garsia Attending Provider [phone] Maria Elena Mary Primary Care Provider Dr. Maria Elena Mary Referring Provider Dr. Shawn Perez Referring Provider Dr. Jean Marie Crump Attending Provider Dr. Laz Garsia Referring Provider [phone] Patrice WIRELESS ENGINEER, WIRELESS ENGINEER-C Jewell Attending Provider Karolyn WIRELESS ENGINEER, WIRELESS ENGINEER-C Kaykay Attending Provider Karolyn WIRELESS ENGINEER, WIRELESS ENGINEER-C Kaykay Referring Provider [phone] Karolyn WIRELESS ENGINEER, WIRELESS ENGINEER-C Kaykay Other Provider Dr. Nasir Kelley Attending Provider Dr. Maria Elena Mary Primary Care Provider Dr. Erik Bautista Attending Provider [phone] Salvatore Valenzuela Attending Provider Unavailable Dr. Maria Elena Mary Primary Care Provider Dr. Maria Elena Mary Referring Provider [phone] Karolyn WEN, WIRELESS ENGINEER-C Kaykay Attending Provider [phone] Dr. Maria Elena Mary Primary Care Provider Patrice WIRELESS ENGINEER, WIRELESS ENGINEER-C Jewell Attending Provider Dr. Maria Elena Mary MD Primary Care Provider Usman UGALDE, Dr. Arredondo Attending Provider [phone] Usman UGALDE, Dr. Arredondo Referring Provider [phone] MARIA ELENA MARY Primary Care Unavailable RONALD UGALDE, BHARAHT Osborne Attending Unavailable Usman UGALDE, Dr. Arredondo Primary Care Provider Usman UGALDE, Dr. Arredondo Attending Provider [phone] Usman UGALDE, Dr. Arredondo Referring Provider [phone] Maxim UGALDE, Dr. Schmitz Attending Provider Patrice WIRELESS ENGINEER-CJewell Attending Provider [phone] Maria Elena Mary Primary Care Unavailable Maria Elena Mary Attending Unavailable Ike Marynah Referring Unavailable Maria Elena Mary Attending Unavailable Maria Elena Mary Referring Unavailable Usman, Maria Elena Primary Care Unavailable Patrice WIRELESS ENGINEER, Jewell Referring Unavailable Usman, Maria Elena Primary Care Unavailable Patrice WIRELESS ENGINEER, Jewell Attending Unavailable Patrice WIRELESS ENGINEER, Jewell Attending Unavailable Patrice WIRELESS ENGINEER, Jewell Referring Unavailable Scarlettedlandry, Maria Elena Primary Care Unavailable Patrice WIRELESS ENGINEER, Jewell Attending Unavailable Patrice WIRELESS ENGINEER, Jewell Referring Unavailable Usman, Maria Elena Primary Care Unavailable Ike Marynah Attending Unavailable Usman, Maria Elena Primary Care Unavailable Patrice WIRELESS ENGINEER, Jewell Attending Unavailable Usman Maria Elena Referring Unavailable Mirissa, Maria Elena Primary Care Unavailable Allergies Allergy Classification Reported Allergen(s) Allergy Type Date of Onset Reaction(s) Facility (10 sources) Codeine Drug Allergy 07-09-19 06 Vomiting [facility] (2 sources) Prochlorperazine Drug Allergy 07-09-19 06 Shortness of Breath [facility] (13 sources) Sulfonamides (Antibiotic); Translations: [Sulfa (Sulfonamide Antibiotics)] Propensity to adverse reactions 07-09-19 06 Intolerance [facility] (2 sources) Codeine Drug Allergy 12-08-19 21 Unknown [facility] Work Phone: (10 sources) Prochlorperazine Drug Allergy 12-08-19 21 Other - unable to breathe [facility] (6 sources) prescription pain meds Allergy to substance 12-08-19 21 Nausea/Vom/Chanel rrhea/Lighthea dedness [facility] (9 sources) Methotrexate Drug Allergy 12-11-19 22 hair loss [facility] (4 sources) Opioids - Morphine Analogues Allergy to substance 01-04-20 23 Vomiting [facility] Comment on above: nausea vomiting diar eleuterio (1 source) Codeine Drug Allergy 12-07-19 [facility] (1 source) Methotrexate Drug Allergy 12-07-19 [facility] (1 source) Prochlorperazine Drug Allergy 12-07-19 [facility] (1 source) Opioids - Morphine Analogues Drug allergy (disorder) 12-07-19 [facility] Medications Current Medications Medication Drug Class(es) Dates Sig (Normalized) Sig (Original) Butterbur Root Extract (6 sources) Start: 11-17-2021 Butterbur Root Extract Active MG PO November 16, 2021 11:00pm Start: 11-17-2021 Butterbur Root Extract Active MG PO November 17, 2021 12:00am Butterbur Root Extract 50 mg capsule (3 sources) Start: 11-17-2021 Butterbur Root Extract 50 mg capsule Active mg PO November 17, 2021 12:00am Uxidgdy-Zovzmryij-Gxaw (9 sources) Start: 11-24-2021 Calcium-Magnes ium-Zinc 333-133-5 mg tablet Active 3 {tbl} PO DAILY November 24, 2021 12:00am Start: 11-24-2021 take 3 tablets by mo uth once daily Irihsqb-Apzevnjfk-Jnqt Active 3 TABLET P O DAILY November 23, 2021 11:00pm Start: 11-24-2021 take 3 tablets by mo uth once daily Okgcnsq-Mwwyrnegl-Ycup Active 3 TABLET P O DAILY November 24, 2021 12:00am cyproheptadine hydrochloride 4 mg oral tablet (9 sources) Start: 11-17-2021 take 1 tablet by mouth at bedtime Cyproheptadine 4 mg tablet Active 4 mg PO AT BEDTIME November 17, 2021 12:00am fluticasone propionate 0.05 mg/actuat metered dose nasal spray (14 sources) Corticosteroid Start: 10-21-2022 Fluticasone Propionate 50 mcg/actuation spray,suspension Active 2 NMA INTRANASAL DAILY 21 07October 21, 2022 12:00am Start: 10-21-2022 Fluticasone Pr opionate Active 2 SPRAY INTRANASAL DAILY October 21, 2022 12:00am Start: 11-17-2021 End: 11-24-2021 take 50 ug nasal route once daily Fluticasone Propionate (Flonase Allergy Relief) 50 mcg/actuation spray,suspension Discontinued 1 NMA INTRANASAL DAILY November 17, 2021 12:00am November 24, 2021 3:37pm administer into each nostril Start: 11-17-2021 End: 11-24-2021 take 1 spray(s) nasal route once daily Fluticasone Propionate (Flonase Allergy Relief) 50 mcg/actuation spray,suspension Discontinued 1 SPRAY INTRANASAL DAILY November 17, 2021 12:00am November 24, 2021 3:37pm administer into each nostril folic acid 0.4 mg oral tablet (4 sources) Start: 12-15-2022 take 0.4 mg by mouth once daily Folic Acid 400 mcg tablet Active 0.4 mg PO DAILY December 15, 2022 12:00am Start: 12-15-2022 take 0.4 mg by mouth once rip y Folic Acid Active 0.4 MG PO DAILY December 15, 2022 12:00am triamcinolone acetonide 1 mg/ml topical cream (9 sources) Corticosteroid Start: 11-24-2021 Triamcinolone Acetonide 0.1 % cream Active NMA TOPICAL DAILY as needed November 24, 2021 12:00am ubidecarenone 100 mg oral capsule (9 sources) Start: 11-24-2021 Coenzyme Q10 (Co Q-10) 100 mg capsule Active 100 mg PO DAILY November 24, 2021 12:00am valACYclovir 500 mg oral tablet (13 sources) Herpesvirus Nucleoside Analog DNA Polymerase Inhibitor, Herpes Simplex Virus Nucleoside Analog DNA Polymerase Inhibitor, Herpes Zoster Virus Nucleoside Analog DNA Polymerase Inhibitor Start: 12-15-2022 take 1 tablet by mouth once daily Valacyclovir 500 mg tablet Active 500 mg PO DAILY December 15, 2022 12:00am Start: 11-17-2021 End: 02-23-2022 Valacyclovir 500 mg tablet Discontinued 250 mg PO DAILY November 17, 2021 12:00am February 23, 2022 11:38am Start: 11-17-2021 End: 02-23-2022 take 250 mg by mouth once daily Valacyclovir Discontinued 250 MG PO DAILY November 17, 2021 12:00am February 23, 2022 11:38am Vitamins A,C,J-Qkcc-Jccogs (Preservision Areds) 14,320-226-200 mmpg-ni-isld capsule (9 sources) Start: 11-24-2021 Vitamins A,C,E -Zinc-Copper (Preservision Areds) 14,320-226-200 rehs-up-xdzu capsule Active 1 NMA PO TWICE A DAY November 24, 2021 12:00am Start: 11-24-2021 take 1 capsule by [facility] twice daily Vitamins A,C,K-Facv-Oburlv (Preservision Areds) 14,320-226-200 ypcr-vt-pmzp capsule Active 1 CAP PO TWICE A DAY November 23, 2021 11:00pm Start: 11-24-2021 take 1 capsule by [facility] twice daily Vitamins A,C,J-Jyrk-Mkttwf (Preservision Areds) 14,320-226-200 smut-ho-mdxs capsule Active 1 CAP PO TWICE A DAY November 24, 2021 12:00am Completed/Discontinued Medications Medication Drug Class(es) Dates Sig (Normalized) Sig (Original) acetaminophen 325 mg / HYDROcodone bitartrate 5 mg oral tablet (10 sources) Opioid Agonist Start: 05-05-2018 End: 05-08-2018 Hydrocodone-Acetami nophen 1 TABLET tablet Discontinued 1 {tbl} PO EVERY 6 HOURS NEEDED as needed for Pain 10 3 0 May 05, 2018 1:00am May 07, 2018 1:00am May 08, 2018 1:10am Sprain of anterior talofibular ligament of right ankle Sprain of other ligament of right ankle, initial encounter Start: 05-05-2018 End: 05-08-2018 take 1 tablet by mouth every six hours as needed Hydrocodone-Acetaminophen Discontinued 1 TABLET PO EVERY 6 HOURS NEEDED 10 May 05, 2018 1:00am May 08, 2018 1:10am Acetylcysteine (10 sources) Antidote, Mucolytic, Antidote for Acetaminophen Overdose Start: 05-24-2017 End: 11-17-2021 Acetylcysteine (Bulk) powder Discontinued 0 MC TWICE A DAY 0 May 24, 2017 1:00am November 17, 2021 3:09pm 600 mg (1 capsule) miscellaneous BID Start: 05-24-2017 End: 11-17-2021 Acetylcysteine (Bulk) powder Discontinued 0 MC TWICE A DAY May 24, 2017 1:00am November 17, 2021 3:09pm 600 mg (1 capsule) miscellaneous BID Start: 05-24-2017 End: 11-17-2021 Acetylcysteine (Bulk) Discon tinued 0 MC TWICE A DAY May 24, 2017 12:00am November 17, 2021 2:09pm 600 mg (1 capsule) miscellaneous BID Start: 05-24-2017 End: 11-17-2021 Acetylcysteine (Bulk) Discon tinued 0 MC TWICE A DAY May 24, 2017 1:00am November 17, 2021 3:09pm 600 mg (1 capsule) miscellaneous BID Start: 05-24-2017 Acetylcysteine (Bulk) Active 0 MC TWICE A DAY May 24, 2017 1:00am 600 mg (1 capsule) miscellaneous BID [id number] actuat albuterol 0.09 mg/actuat metered dose inhaler (20 sources) beta2-Adrenergic Agonist Start: 04-15-2020 End: 10-21-2022 Albuterol Sulfate (Ventolin Hfa) 90 mcg/actuation HFA aerosol inhaler Discontinued 2 NMA INHALATION Q4H as needed for shortness of breath or wheezing 23 10June 04, 2021 9:44am October 21, 2022 11:09am Start: 04-15-2020 End: 10-21-2022 take 1 puff(s) by inhalation every four hours Albuterol Sulfate (Ventolin Hfa) 90 mcg/actuation HFA aerosol inhaler Discontinued 2 PUFF INHALATION Q4H June 04, 2021 9:44am October 21, 2022 11:09am Start: 06-29-2017 End: 04-15-2020 Albuterol Sulfate (Ventolin Hfa) 90 mcg/actuation HFA aerosol inhaler Discontinued 2 NMA INHALATION Q4H as needed for shortness of breath or wheezing 18 June 29, 2017 1:00am April 15, 2020 3:12pm Start: 06-29-2017 End: 04-15-2020 take 1 puff(s) by inhalation every four hours Albuterol Sulfate (Ventolin Hfa) 90 mcg/actuation HFA aerosol inhaler Discontinued 2 PUFF INHALATION Q4H June 29, 2017 1:00am April 15, 2020 3:12pm Start: 08-21-2006 take 1 puff(s) by in halation once as needed for wheezing Albuterol Sulfate (PROVENTIL HFA) 90 mcg/Actuation INHALATION HFAA Inhale two(2) puffs every four(4) to six(6) hours as needed for shortness of breath and wheezing. 1 6 08/21/2006 Active Comment on above: Inhale two(2) puffs every four(4) to six(6) hours as needed for shortness of breath and wheezing. ascorbic acid 500 mg oral capsule (10 sources) Vitamin C Start: 05-24-2017 End: 11-17-2021 Ascorbic Acid (Vitamin C) 500 mg capsule Discontinued 250 mg PO daily 0 May 24, 2017 1:00am November 17, 2021 3:11pm Start: 05-24-2017 End: 11-17-2021 take 250 mg by mouth once daily Ascorbic Acid (Vitamin C) Discontinued 250 MG PO daily May 24, 2017 1:00am November 17, 2021 3:11pm aspirin 81 mg oral tablet (2 sources) Platelet Aggregation Inhibitor, Nonsteroidal Anti-inflammatory Drug Start: 08-05-2005 ASPIRIN 81 MG TAB Take one(1) tablet daily. 0 08/05/2005 Active Comment on above: Take one(1) tablet daily. Baicalin-Catec hin (7 sources) Start: 05-24-2017 End: 10-31-2017 take 2 capsules by mouth twice daily Baicalin-Catechin Discontinued 2 CAP PO TWICE A DAY May 24, 2017 12:00am October 31, 2017 9:21am Start: 05-24-2017 End: 10-31-2017 take 2 capsules by mouth twice daily Baicalin-Catechin Discontinued 2 CAP PO TWICE A DAY May 24, 2017 1:00am October 31, 2017 10:21am Baicalin-Catechin 500 mg capsule (3 sources) Start: 05-24-2017 End: 10-31-2017 take 1 capsule by mouth twice daily Baicalin-Catechin 500 mg capsule Discontinued 2 NMA PO TWICE A DAY 0 May 24, 2017 1:00am October 31, 2017 10:21am Start: 05-24-2017 End: 10-31-2017 take 1 capsule by mouth twice daily Baicalin-Catechin 500 mg capsule Discontinued 2 NMA PO TWICE A DAY May 24, 2017 1:00am October 31, 2017 10:21am benzonatate 100 mg oral capsule (9 sources) Non-narcotic Antitussive Start: 11-17-2021 End: 12-15-2022 take 1 capsule by mouth three times daily as needed Benzonatate 100 mg capsule Discontinued 100 mg PO THREE TIMES A DAY as needed November 17, 2021 12:00am December 15, 2022 10:52am calcium citrate 950 mg oral tablet (10 sources) Start: 05-24-2017 End: 11-17-2021 take 1 tablet by mouth twice daily Calcium Citrate 200 mg (950 mg) tablet Discontinued 200 mg PO TWICE A DAY May 24, 2017 1:00am November 17, 2021 3:10pm calcium citrate 1500 mg / cholecalciferol 200 unt oral tablet (2 sources) Vitamin D Start: 08-05-2005 CITRACAL + D 315 MG-200 UNIT TAB Take one(1) tablet daily. 0 08/05/2005 Active Comment on above: Take one(1) tablet d aily. cholecalciferol 0.025 mg oral capsule (10 sources) Vitamin D Start: 05-24-2017 End: 11-17-2021 take 1 capsule by mouth once Cholecalciferol (Vitamin D3) 1,000 unit capsule Discontinued 1000 U PO ONCE May 24, 2017 1:00am November 17, 2021 3:10pm evening primrose oil 500 mg oral capsule (2 sources) Start: 08-05-2005 EVENING PRIMROSE OIL 500 MG CAP two caps daily 0 08/05/2005 Active Comment on above: two caps daily famciclovir 125 mg oral tablet (10 sources) Herpes Simplex Virus Nucleoside Analog DNA Polymerase Inhibitor Start: 05-24-2017 End: 11-17-2021 take 1 tablet by mouth twice daily Famciclovir 125 mg tablet Discontinued 125 mg PO TWICE A DAY May 24, 2017 1:00am November 17, 2021 3:10pm leucovorin 15 mg oral tablet (10 sources) Folate Analog Start: 11-07-2017 End: 11-17-2021 take 1 tablet by mouth once Leucovorin Calcium 15 mg tablet Discontinued 15 mg PO .Q Tuesday November 07, 2017 12:00am November 17, 2021 3:10pm magnesium oxide 400 mg oral capsule (10 sources) Start: 05-24-2017 End: 11-17-2021 take 1 capsule by mouth once daily Magnesium Oxide 400 mg capsule Discontinued 400 mg PO daily May 24, 2017 1:00am November 17, 2021 3:10pm methotrexate 2.5 mg oral tablet (20 sources) Folate Analog Metabolic Inhibitor Start: 10-15-2018 End: 04-15-2020 take 7 mg by mouth every week Methotrexate Sodium 2.5 mg tablet Discontinued 7 mg PO EVERY WEEK October 15, 2018 12:00am April 15, 2020 2:40pm Start: 10-15-2018 End: 04-15-2020 take 7 mg by mouth every week Methotrexate Sodium Disc ontinued 7 MG PO EVERY WEEK October 15, 2018 12:00am April 15, 2020 2:40pm Start: 10-31-2017 End: 10-15-2018 Methotrexate Sodium 2.5 mg t ablet Discontinued 15 mg PO EVERY WEEK October 31, 2017 12:00am October 15, 2018 2:21pm Start: 10-31-2017 End: 10-15-2018 take 15 mg by mouth every week Methotrexate Sodium Dis continued 15 MG PO EVERY WEEK October 31, 2017 12:00am October 15, 2018 2:21pm montelukast 10 mg oral tablet (7 sources) Leukotriene Receptor Antagonist Start: 11-01-2022 End: 12-04-2023 take 1 tablet by mouth once daily in the evening Montelukast 10 mg tablet Discontinued 10 mg PO EVERY EVENING 3 June 08, 2023 4:46pm December 04, 2023 12:40pm Tiotropium-Olodate rol (20 sources) Anticholinergic, beta2-Adrenergic Agonist Start: 07-09-2018 End: 04-15-2020 Tiotropium-Olodater ol (Stiolto Respimat) 2.5-2.5 mcg/actuation mist Discontinued 2 NMA INHALATION Q24H 4 July 09, 2018 11:21am April 15, 2020 3:00pm administer at approximately the same time(s) each day Start: 07-09-2018 End: 04-15-2020 Tiotropium-Olodaterol (Stiol to Respimat) 2.5-2.5 mcg/actuation mist Discontinued 2 NMA INHALATION Q24H July 09, 2018 11:21am April 15, 2020 3:00pm administer at approximately the same time(s) each day Start: 10-31-2017 End: 07-09-2018 Tiotropium-Olodaterol (Stiol to Respimat) 2.5-2.5 mcg/actuation mist Discontinued 2 NMA INHALATION Q24H 08 11October 31, 2017 10:39am July 09, 2018 11:22am administer at approximately the same time(s) each day Start: 10-31-2017 End: 07-09-2018 Tiotropium-Olodaterol (Stiol to Respimat) 2.5-2.5 mcg/actuation mist Discontinued 2 NMA INHALATION Q24H October 31, 2017 10:39am July 09, 2018 11:22am administer at approximately the same time(s) each day Start: 07-31-2017 End: 10-31-2017 Tiotropium-Olodaterol (Stiol to Respimat) 2.5-2.5 mcg/actuation mist Discontinued 2 NMA INHALATION Q24H 4 July 31, 2017 12:00am October 31, 2017 10:40am administer at approximately the same time(s) each day Start: 07-31-2017 End: 10-31-2017 Tiotropium-Olodaterol (Stiol to Respimat) 2.5-2.5 mcg/actuation mist Discontinued 2 NMA INHALATION Q24H July 31, 2017 12:00am October 31, 2017 10:40am administer at approximately the same time(s) each day Start: 07-31-2017 End: 04-15-2020 Tiotropium-Olodaterol (Stiol to Respimat) 2.5-2.5 mcg/actuation mist Discontinued 2 PUFF INHALATION Q24H July 09, 2018 11:21am April 15, 2020 3:00pm administer at approximately the same time(s) each day OMEGA-3 FATTY ACIDS-VITAMIN E 650 MG-3 UNIT/2.5 G PUDDING (2 sources) Start: 08-05-2005 OMEGA-3 FATTY ACIDS-VITAMIN E 650 MG-3 UNIT/2.5 G PUDDING two caps daily 0 08/05/2005 Active Comment on above: two caps daily ondansetron 4 mg disintegrating oral tablet (10 sources) Serotonin-3 Receptor Antagonist Start: 05-05-2018 End: 11-17-2021 take 1 tablet by mouth every eight hours as needed for nausea Ondansetron 4 MG tablet Discontinued 4 mg PO EVERY 8 HOURS NEEDED as needed for Nausea May 05, 2018 1:00am November 17, 2021 3:10pm pravastatin sodium 20 mg oral tablet (10 sources) HMG-CoA Reductase Inhibitor Start: 05-24-2017 End: 11-17-2021 take 1 tablet by mouth at bedtime Pravastatin (Pravachol) 20 mg tablet Discontinued 20 mg PO AT BEDTIME May 24, 2017 1:00am November 17, 2021 3:10pm saccharomyces boulardii 250 mg oral capsule (9 sources) Start: 11-24-2021 End: 12-15-2022 take 1 capsule by mouth once daily Saccharomyces Boulardii (Probiotic (S.Boulardii)) 250 mg capsule Discontinued 250 mg PO DAILY November 24, 2021 12:00am December 15, 2022 10:51am simvastatin 20 mg oral tablet (2 sources) HMG-CoA Reductase Inhibitor Start: 08-04-2005 ZOCOR 20 MG TAB Take one(1) tablet daily. 0 08/04/2005 Active Comment on above: Take one(1) tablet d aily. 24 hr tolterodine tartrate 4 mg extended release oral capsule (12 sources) Cholinergic Muscarinic Antagonist Start: 08-05-2005 End: 11-17-2021 take 1 capsule by mouth once daily Tolterodine 4 mg capsule,extended release 24hr Discontinued 4 mg PO daily May 24, 2017 1:00am November 17, 2021 3:10pm Comment on above: Take one(1) tablet d manasa. Turmeric extract (9 sources) Start: 11-24-2021 End: 12-15-2022 take 1 capsule by mouth once daily Turmeric 400 mg capsule Discontinued 400 mg PO DAILY November 24, 2021 12:00am December 15, 2022 10:52am Start: 11-24-2021 End: 12-15-2022 take 400 mg by mouth once daily Turmeric Discontinued 400 MG PO DAILY November 24, 2021 12:00am December 15, 2022 10:52am Start: 11-24-2021 take 400 mg by mouth once daily Turmeric Active 400 MG PO DAILY November 23, 2021 11:00pm Start: 11-24-2021 take 400 mg by mouth once daily Turmeric Active 400 MG PO DAILY November 24, 2021 12:00am Problems Problem Classification Problem Date Documented Da te Episodic/Chronic Chronic obstructive pulmonary disease and bronchiectasis (17 sources) Mild chronic obstructive pulmonary disease; Translations: [Chronic obstructive pulmonary disease, unspecified] Chronic Conditions associated with dizziness or vertigo (4 sources) Lightheadedness; Translations: [Dizziness and giddiness] Onset: 12-06-2024 12-06-2024 Episodic Fracture of lower limb (1 source) Unspecified fracture of shaft of unspecified fibula, initial encounter for closed fracture; Translations: [Unspecified fracture of shaft of unspecified fibula, initial encounter for closed fracture] Onset: 08-19-2024 Episodic Malaise and fatigue (12 sources) Attacks of weakness; Translations: [Weakness] Onset: 12-06-2024 11-17-2021 Episodic Nonspecific chest pain (11 sources) Chest pain; Translations: [Chest pain, unspecified] Onset: 12-06-2024 11-17-2021 Episodic Other circulatory disease (8 sources) Elevated blood pressure; Translations: [Elevated blood-pressure reading, without diagnosis of hypertension] 02-23-2022 Episodic Other circulatory disease (2 sources) Elevated blood-pressure reading, without diagnosis of hypertension; Translations: [Elevated blood pressure reading without diagnosis of hypertension] Episodic Other gastrointestinal disorders (2 sources) Irritable bowel syndrome; Translations: [Irritable bowel syndrome] 08-03-2005 Chronic Other lower respiratory disease (11 sources) Dyspnea on exertion; Translations: [Dyspnea, unspecified] 05-31-2017 Episodic Other lower respiratory disease (8 sources) Other forms of dyspnea; Translations: [Other respiratory abnormalities] Episodic Other screening for suspected conditions (not mental disorders or infectious disease) (1 source) Encounter for screening mammogram for malignant neoplasm of breast; Translations: [Encounter for screening mammogram for malignant neoplasm of breast] Onset: 11-05-2024 Episodic Other upper respiratory infections (12 sources) Posterior rhinorrhea; Translations: [Postnasal drip] 04-24-2018 Episodic Pneumonia (except that caused by tuberculosis or sexually transmitted disease) (10 sources) Atypical mycobacterial infection of lung; Translations: [Pulmonary mycobacterial infection] 05-31-2017 Episodic Residual codes; unclassified (10 sources) Passive smoker; Translations: [Contact with and (suspected) exposure to environmental tobacco smoke (acute) (chronic)] 05-31-2017 Episodic Rheumatoid arthritis and related disease (9 sources) Rheumatoid arthritis; Translations: [Rheumatoid arthritis, unspecified] 11-24-2021 Chronic Results Test Name Value Interpretation Reference Range Facility CBC W/Diff, Automatedon - Absolute Lymph 1.13 X10 3/uL Normal 0.83-4.51 [facility] Comment on above: Performed By: #### L 100.0100, L503.0106, L503.6550, L503.6030, L500.4050 #### [facility] [address] [place], [address] Absolute Neut 2.3 X10 3/uL Normal 2.0-7.7 [facility] Comment on above: Performed By: #### L 100.0100, L503.0106, L503.6550, L503.6030, L500.4050 #### [facility] [address] [place], [address] Basophils/100 WBC (Bld) 1.0 % Normal 0-1 [facility] Comment on above: Performed By: #### L 100.0100, L503.0106, L503.6550, L503.6030, L500.4050 #### [facility] [address] [place], [address] Eosinophils/100 WBC (Bld) 3.3 % Normal 0-5 [facility] Comment on above: Performed By: #### L 100.0100, L503.0106, L503.6550, L503.6030, L500.4050 #### [facility] [address] [place], [address] Erythrocyte distribution width (RBC) [Ratio] 13.5 % Normal 11.6-14.6 [facility] Comment on above: Performed By: #### L 100.0100, L503.0106, L503.6550, L503.6030, L500.4050 #### [facility] [address] [place], [address] Hematocrit (Bld) [Volume fraction] 36.5 % Low 37-47 [facility] Comment on above: Performed By: #### L 100.0100, L503.0106, L503.6550, L503.6030, L500.4050 #### [facility] [address] [place], [address] Hemoglobin (Bld) [Mass/Vol] 11.9 g/dL Low 12.0-15.0 [facility] Comment on above: Performed By: #### L 100.0100, L503.0106, L503.6550, L503.6030, L500.4050 #### [facility] [address] [place], [address] IG% 0.500 Normal 0.0-0.9 [facility] Comment on above: Result Comment: IG% - Immature Granulocytes (promyelocytes, myelocytes and metamyelocytes) > 1% indicates that a LEFT SHIFT is Present. Performed By: #### L 100.0100, L503.0106, L503.6550, L503.6030, L500.4050 #### [facility] [address] [place], [address] Lymphocytes/100 WBC (Bld) 29.0 % Normal 19-41 [facility] Comment on above: Performed By: #### L 100.0100, L503.0106, L503.6550, L503.6030, L500.4050 #### [facility] [address] [place], [address] MCH (RBC) [Entitic mass] 30.4 pg Normal 27.0-32.0 [facility] Comment on above: Performed By: #### L 100.0100, L503.0106, L503.6550, L503.6030, L500.4050 #### [facility] [address] [place], [address] MCHC (RBC) [Mass/Vol] 32.6 g/dL Normal 32-36 [facility] Comment on above: Performed By: #### L 100.0100, L503.0106, L503.6550, L503.6030, L500.4050 #### [facility] [address] [place], [address] MCV (RBC) [Entitic vol] 93.1 fL Normal 81-99 [facility] Comment on above: Performed By: #### L 100.0100, L503.0106, L503.6550, L503.6030, L500.4050 #### [facility] [address] [place], [address] Monocytes/100 WBC (Bld) 8.5 % Normal 0-10 [facility] Comment on above: Performed By: #### L 100.0100, L503.0106, L503.6550, L503.6030, L500.4050 #### [facility] [address] [place], [address] Neutrophils/100 WBC (Bld) 57.7 % Normal 47-70 [facility] Comment on above: Performed By: #### L 100.0100, L503.0106, L503.6550, L503.6030, L500.4050 #### [facility] [address] [place], [address] Nucleated RBC (Bld) [#/Vol] 0 10*3/uL Normal 0-5 [facility] Comment on above: Performed By: #### L 100.0100, L503.0106, L503.6550, L503.6030, L500.4050 #### [facility] [address] [place], [address] Platelet mean volume (Bld) [Entitic vol] 10.7 fL Normal 6.2-12.0 [facility] Comment on above: Performed By: #### L 100.0100, L503.0106, L503.6550, L503.6030, L500.4050 #### [facility] [address] [place], [address] Platelets (Bld) [#/Vol] 266 10*3/uL Normal 150-450 [facility] Comment on above: Performed By: #### L 100.0100, L503.0106, L503.6550, L503.6030, L500.4050 #### [facility] [address] [place], [address] RBC (Bld) [#/Vol] 3.92 10*6/uL Low 4.2-5.4 [facility] Comment on above: Performed By: #### L 100.0100, L503.0106, L503.6550, L503.6030, L500.4050 #### [facility] [address] [place], [address] RDW SD 45.7 fl High 35.1-43.9 [facility] Comment on above: Performed By: #### L 100.0100, L503.0106, L503.6550, L503.6030, L500.4050 #### [facility] [address] [place], [address] WBC (Bld) [#/Vol] 3.9 10*3/uL Low 4.4-11.0 [facility] Comment on above: Performed By: #### L 100.0100, L503.0106, L503.6550, L503.6030, L500.4050 #### [facility] [address] [place], [address] Comprehensive Metabolic Prof [facility] 12-31-2024 Albumin [Mass/Vol] 4.4 g/dL Normal 3.4-4.8 [facility] Comment on above: Performed By: #### L 100.0100, L503.0106, L503.6550, L503.6030, L500.4050 #### [facility] [address] [place], [address] Albumin/Globulin [Mass ratio] 1.7 {ratio} Normal 0.9-2.4 [facility] Comment on above: Performed By: #### L 100.0100, L503.0106, L503.6550, L503.6030, L500.4050 #### [facility] [address] [place], [address] ALK PHOS 70 U/L Normal 35-104 [facility] Comment on above: Performed By: #### L 100.0100, L503.0106, L503.6550, L503.6030, L500.4050 #### [facility] [address] [place], [address] ALT [Catalytic activity/Vol] 10 U/L Normal <=34 [facility] Comment on above: Performed By: #### L 100.0100, L503.0106, L503.6550, L503.6030, L500.4050 #### [facility] [address] [place], [address] AST [Catalytic activity/Vol] 19 U/L Normal <=31 [facility] Comment on above: Performed By: #### L 100.0100, L503.0106, L503.6550, L503.6030, L500.4050 #### [facility] [address] [place], [address] Bilirubin [Mass/Vol] 0.31 mg/dL Normal 0.00-1.30 [facility] Comment on above: Performed By: #### L 100.0100, L503.0106, L503.6550, L503.6030, L500.4050 #### [facility] [address] [place], [address] BUN/CRE 22.9 RATIO High 10-20 [facility] Comment on above: Performed By: #### L 100.0100, L503.0106, L503.6550, L503.6030, L500.4050 #### [facility] [address] [place], [address] Calcium [Mass/Vol] 9.5 mg/dL Normal 7.6-11.0 [facility] Comment on above: Performed By: #### L 100.0100, L503.0106, L503.6550, L503.6030, L500.4050 #### [facility] [address] [place], [address] Chloride [Moles/Vol] 106 mmol/L Normal 98-108 [facility] Comment on above: Performed By: #### L 100.0100, L503.0106, L503.6550, L503.6030, L500.4050 #### [facility] [address] [place], [address] CO2 [Moles/Vol] 25.4 mmol/L Normal 21.0-32.0 [facility] Comment on above: Performed By: #### L 100.0100, L503.0106, L503.6550, L503.6030, L500.4050 #### [facility] [address] [place], [address] Creatinine [Mass/Vol] 0.81 mg/dL Normal 0.70-1.20 [facility] Comment on above: Performed By: #### L 100.0100, L503.0106, L503.6550, L503.6030, L500.4050 #### [facility] [address] [place], [address] GAP 10 Normal 5-15 [facility] Comment on above: Performed By: #### L 100.0100, L503.0106, L503.6550, L503.6030, L500.4050 #### [facility] [address] [place], [address] GFR/1.73 sq M.predicted among non-blacks MDRD (S/P/Bld) [Vol rate/Area] 72 mL/min/{1.73_m2} Normal >60 [facility] Comment on above: Result Comment: mL/m in/1.73m2 CKD-EPI Creatinine Equation (2020) Performed By: #### L 100.0100, L503.0106, L503.6550, L503.6030, L500.4050 #### [facility] [address] [place], [address] Globulin (S) [Mass/Vol] 2.5 g/dL Normal 2.2-4.2 [facility] Comment on above: Performed By: #### L 100.0100, L503.0106, L503.6550, L503.6030, L500.4050 #### [facility] [address] [place], [address] Glucose [Mass/Vol] 93 mg/dL Normal 70-99 [facility] Comment on above: Performed By: #### L 100.0100, L503.0106, L503.6550, L503.6030, L500.4050 #### [facility] [address] [place], [address] Potassium [Moles/Vol] 4.0 mmol/L Normal 3.3-5.1 [facility] Comment on above: Performed By: #### L 100.0100, L503.0106, L503.6550, L503.6030, L500.4050 #### [facility] [address] [place], [address] Sodium [Moles/Vol] 142 mmol/L Normal 133-145 [facility] Comment on above: Performed By: #### L 100.0100, L503.0106, L503.6550, L503.6030, L500.4050 #### [facility] [address] [place], [address] T PROT 6.9 g/dL Normal 5.9-8.4 [facility] Comment on above: Performed By: #### L 100.0100, L503.0106, L503.6550, L503.6030, L500.4050 #### [facility] [address] [place], [address] Urea nitrogen [Mass/Vol] 19 mg/dL Normal 4-19 [facility] Comment on above: Performed By: #### L 100.0100, L503.0106, L503.6550, L503.6030, L500.4050 #### [facility] [address] [place], [address] Ferritinon 12-31-2024 Ferritin [Mass/Vol] 86 ng/mL Normal 22-378 [facility] Comment on above: Performed By: #### L 100.0100, L503.0106, L503.6550, L503.6030, L500.4050 #### [facility] [address] [place], [address] Iron+Iron Binding Capacityon 12-31-2024 Iron [Mass/Vol] 72 ug/dL Normal 50-170 [facility] Comment on above: Performed By: #### L 100.0100, L503.0106, L503.6550, L503.6030, L500.4050 #### [facility] [address] [place], [address] IRON SATURATION 26.0 Normal 13-59 [facility] Comment on above: Performed By: #### L 100.0100, L503.0106, L503.6550, L503.6030, L500.4050 #### [facility] [address] [place], [address] TIBC 277 ug/dL Normal 250-450 [facility] Comment on above: Performed By: #### L 100.0100, L503.0106, L503.6550, L503.6030, L500.4050 #### [facility] [address] [place], [address] UIBC 205 ug/dL Low 228-428 [facility] Comment on above: Performed By: #### L 100.0100, L503.0106, L503.6550, L503.6030, L500.4050 #### [facility] [address] [place], [address] Vitamin B12on 12-31-2024 Cobalamin (Vitamin B12) [Mass/Vol] 284 pg/mL Normal 180-914 [facility] Comment on above: Performed By: #### L 100.0100, L503.0106, L503.6550, L503.6030, L500.4050 #### [facility] [address] [place], [address] Cardiology Visit Reporton Cardiology Visit Report [facility] [address] [place] [address] OFFICE VISIT Date of Service: 12/06/24 MR#: [id number] Acct: [id number] Name: BENJY RIVERA Rep #: [id number] : 1940 Provider: CAMILA montgomery Age/Sex: 84/F Location: [facility] Status: Signed HPI HPI History of Present Illness Details: This is a pleasant 84-year-old lady who presents to the office today for a cardiovascular follow-up visit. Patient was last seen in our office in December 2022. She has no previous cardiac history other than a history of remote Mycobacterium lung infection. She presented previously with shortness of breath for an evaluation. She has been compliant with her medications. She has been started on an inhaler and sees a oracle pl sql developer from time to time. She did have a chest x-ray performed which demonstrated a hyperinflated chest consistent with COPD and an EKG which demonstrated normal sinus rhythm with a rate of 84 bpm and no acute changes. Her stress test from 12/2021 was negative for ischemia. Her echocardiogram from 12/2021 demonstrated an ejection fraction of 60%, stage I diastolic dysfunction, and pulmonary artery systolic pressure is 30 mmHg. From a cardiac standpoint, the patient is doing well. She does acknowledge an occasional left sided chest pain. She describes this as someone is hitting her. She denies any palpitations, pressure or heaviness. She does have occasional SOB with exertion. This is nothing new or worsening. She denies Orthopnea, and PND. She does not have bleeding issues; no blood in urine, stool, or nosebleeds. She does acknowledge fatigue. She denies myalgias, or claudication. She does not have edema, or sudden weight gain. She does acknowledge lightheadedness. She states that she may have passed out in August when she fell at home and broke her right ankle. Intake Vital Signs 12/04/23 07:55 12/06/24 07:45 Height 5 ft 4 in 5 ft 4 in Weight: 121 lb BMI 20.7 BP 134/79 H Blood Pressure Location Lt brachial Position Sitting Respiration 18 Pulse 73 Pulse Source Monitor Pulse Oximetry (%) 98 Intake Visit Reasons: LEG SWELLING/FATIQUE Desktop Support Technician Required: No Is patient in pain?: No Allergies prochlorperazine (From Compazine) Allergy (Severe, Verified 12/06/24 15:23) Other - unable to breathe Opioids - Morphine Analogues Allergy (Mild, Verified 12/06/24 15:23) Vomiting Sulfa (Sulfonamide Antibiotics) Allergy (Mild, Verified 12/06/24 15:23) Nausea codeine Allergy (Verified 12/06/24 15:23) NEEDS FOLLOW-UP methotrexate Adverse Reaction (Verified 12/06/24 15:23) hair loss Medications ???Medication ???Instructions ???Recorded ???Confirmed ???Type butterbur root extract 50 mg mg PO 11/17/21 12/06/24 History capsule cyproheptadine 4 mg tablet 4 mg PO QHS 11/17/21 12/06/24 Hist ory dxxqqic-xgjeyjmgm-a inc 333 mg-133 3 tab PO DAILY 11/24/21 12/06/24 History mg-5 mg tablet coenzyme Q10 100 mg capsule (Co 100 mg PO DAILY 11/24/21 12/06/24 History Q-10) triamcinolone acetonide 0.1 % applic topical DAILY PRN 11/24/21 12/06/24 History topical cream vitamins A,C,Y-muhf-akifzi 4,296 1 cap PO BID 11/24/21 12/06/24 His tory mcg-226 mg-90 mg capsule (PreserVision AREDS) albuterol sulfate 90 mcg/actuation 2 puff inhalation Q4H PRN 12/06/24 Rx aerosol inhaler (Ventolin HFA) shortness of breath or wheezing #18 grams fluticasone propionate 50 2 spray intranasal DAILY #16 grams 10/21/22 12/06/24 Rx mcg/actuation nasal spray,suspension folic acid 400 mcg tablet 0.4 mg PO DAILY 12/15/22 12/06/24 History valacyclovir 500 mg tablet 500 mg PO DAILY 12/15/22 12/06/24 History Ejection fraction %: 60 Have you fallen in the past year?: Yes PFSH Medical History Macular degeneration Rheumatoid arthritis Secondhand smoke exposure Atypical mycobacterial infection of lung CAMEJO (dyspnea on exertion) Atypical mycobacterial infection Osteopenia COPD (chronic obstructive pulmonary disease) Caregiver stress Myalgia and myositis Right upper quadrant pain Irritable bowel syndrome with constipation Lumbar degenerative disc disease Lactose intolerance Surgical History History of dilatation and curettage H/O colonoscopy H/O laminectomy History of tonsillectomy H/O breast biopsy History of lung biopsy H/O total hysterectomy Family History Grandmother Hypertension CHF (congestive heart failure) Daughter cardiac ablation Grandfather Lung cancer Alcohol abuse Father Alcohol abuse Lung cancer Sister CAD (coronary arter (more content not included)... Normal [facility] Breast imaging reportOrdered By: Jayme Talamantes on 10-31-2024 Study report [facility] [address] [place] [address] SCRN MAMM (CAD)W/ELIUD BILAT MR#: [id number] Acct: [id number] Name: BENJY RIVERA Rep #: [id number] : 1940 F 83 From: Rosendo Talamantes MD PCP: Dr. Maria Elena Mary MD Status: [facility] Study:SCRN MAMM (CAD)W/ELIUD BILAT Date of Exa m: 10/31/24 Exam# [id number] Ordering Dr: Carrie Mary MD EXAM: SCRN MAMM (CAD)W/ELIUD BILAT DATE: 10/31/2024 CLINICAL HISTORY: F, Age 83 y/o , SCREENING Sisters with breast cancer. Aunts with breast cancer. TECHNIQUE: SCRN MAMM (CAD)W/ELIUD BILAT COMPARISON: Prior exam(s) dated October 30, 2023.. FINDINGS: TISSUE DENSITY: The breasts are heterogeneously dense, which may obscure small masses. Bilateral Breast Mammographic Findings: No significant masses, calcifications or other abnormalities are identified. No suspicious masses, areas of developing architectural distortion, or suspicious calcifications. There has been no significant interval change. BI/SCRN MAMM (CAD)W/ELIUD BILAT IMPRESSION: Stable examination. OVERALL FINAL ASSESSMENT BI-RADS 1: NEGATIVE. RECOMMEND ANNUAL MAMMOGRAPHIC SCREENING. RECOMMENDATION: Routine annual follow-up in 1 Year A letter with findings and recommendations will be mailed to the patient. Reading Location: [facility] CC: Dr. Maria Elena Mary MD ~ Rn Transplant: Signed [facility] SCRN MAMM (CAD)W/ELIUD BILATo eleanor 10-31-2024 SCRN MAMM (CAD)W/ELIUD BILAT [facility] [address] [place] [id number] SCRN MAMM (CAD)W/ELIUD BILAT MR#: [id number] Acct: [id number] Name: BENJY RIVERA Rep #: [id number] : 1940 F 83 From: Jayme mclean MD PCP: Dr. Maria Elena Mary MD Status: [facility] Study: SCRN MAMM (CAD)W/ELIUD BILAT Date of Exam: 10/07 10/30 Exam# [id number] Ordering Dr: Maria Elena Mary MD EXAM: SCRN MAMM (CAD)W/ELIUD BILAT DATE: 10/31/2024 CLINICAL HISTORY: F, Age 83 y/o , SCREENING Sisters with breast cancer. Aunts with breast cancer. TECHNIQUE: SCRN MAMM (CAD)W/ELIUD BILAT COMPARISON: Prior exam(s) dated October 30, 2023.. FINDINGS: TISSUE DENSITY: The breasts are heterogeneously dense, which may obscure small masses. Bilateral Breast Mammographic Findings: No significant masses, calcifications or other abnormalities are identified. No suspicious masses, areas of developing architectural distortion, or suspicious calcifications. There has been no significant interval change. BI/SCRN MAMM (CAD)W/ELIUD BILAT IMPRESSION: Stable examination. OVERALL FINAL ASSESSMENT BI-RADS 1: NEGATIVE. RECOMMEND ANNUAL MAMMOGRAPHIC SCREENING. RECOMMENDATION: Routine annual follow-up in 1 Year A letter with findings and recommendations will be mailed to the patient. Reading Location: [id number] CC: Dr. Maria Elena Mary MD Rn Transplant: Signed Normal [facility] XR ANKLE MINIMUM 3 VIEWS RIG HTon 08-19-2024 XR ANKLE MINIMUM 3 VIEWS RIGHT ORIGINAL EXAMINATION: THREE XRAY VIEWS OF THE RIGHT ANKLE 08/19/2024 8:02 pm COMPARISON: None. HISTORY: ORDERING SYSTEM PROVIDED HISTORY: Reason for Exam: pain FINDINGS: Tiny osseous density inferior to the lateral malleolus. Soft tissue swelling. No dislocation. IMPRESSION: Tiny osseous density inferior to the lateral malleolus, which given reported history could reflect an avulsion fracture. Interpreted by: Karthikeyan Hernandez Preliminary Report By: Karthikeyan Hernandez Electronically signed By Karthikeyan Hernandez Dictated Date: 08/19/2024 8:20:14 PM Prelim Date: 08/19/2024 8:21:46 PM Sign Date: 08/19/2024 8:21:46 PM Ordering Provider: BHARATH CARDENAS [facility] Absolute lymphocyte countOrd ered By: Maria Elena Mary on 07-23-2024 Lymphocytes Auto (Unsp spec) [#/Vol] 1.47 10*3/uL 0.83-4.51 [facility] Absolute neutrophil countOrd ered By: Maria Elena Mary on 07-23-2024 Neutrophils (Bld) [#/Vol] 2.8 10*3/uL 2.0-7.7 [facility] Anion gap in Serum or Plasma Ordered By: Maria Elena Mary on 07-23-2024 Anion gap [Moles/Vol] 9 mmol/L 5-15 [facility] Automated lymphocyte count a s percentage of total leukocytesOrdered By: Maria Elena Mary on 07-23-2024 Lymphocytes/100 WBC Auto (Unsp spec) 31.3 % 19-41 [facility] BUN/creatinine ratioOrdered By: Maria Elena Mary on 07-23-2024 Urea nitrogen/Creatinine [Mass ratio] 23.8 mg/mg High 10-20 [facility] Basophil percentageOrdered B y: Maria Elena Mary on 07-23-2024 Basophils/100 WBC (Bld) 0.6 % 0-1 [facility] Bilirubin, totalOrdered By: Maria Elena Mary on 07-23-2024 Bilirubin [Mass/Vol] 0.36 mg/dL 0.00-1.30 [facility] CBC W/Diff, Automatedon 07-06 Absolute Lymph 1.47 X10 3/uL Normal 0.83-4.51 [facility] Comment on above: Performed By: #### L 500.4050, L501.9520, L100.0100 #### [facility] [address] [place], [address] Absolute Neut 2.8 X10 3/uL Normal 2.0-7.7 [facility] Comment on above: Performed By: #### L 500.4050, L501.9520, L100.0100 #### [facility] [address] [place], [address] Basophils/100 WBC (Bld) 0.6 % Normal 0-1 [facility] Comment on above: Performed By: #### L 500.4050, L501.9520, L100.0100 #### [facility] [address] [place], [address] Eosinophils/100 WBC (Bld) 3.2 % Normal 0-5 [facility] Comment on above: Performed By: #### L 500.4050, L501.9520, L100.0100 #### [facility] [address] [place], [address] Erythrocyte distribution width (RBC) [Ratio] 13.4 % Normal 11.6-14.6 [facility] Comment on above: Performed By: #### L 500.4050, L501.9520, L100.0100 #### [facility] [address] [place], [address] Hematocrit (Bld) [Volume fraction] 36.8 % Low 37-47 [facility] Comment on above: Performed By: #### L 500.4050, L501.9520, L100.0100 #### [facility] [address] [place], [address] Hemoglobin (Bld) [Mass/Vol] 11.9 g/dL Low 12.0-15.0 [facility] Comment on above: Performed By: #### L 500.4050, L501.9520, L100.0100 #### [facility] [address] [place], [address] IG% 0.400 Normal 0.0-0.9 [facility] Comment on above: Result Comment: IG% - Immature Granulocytes (promyelocytes, myelocytes and metamyelocytes) > 1% indicates that a LEFT SHIFT is Present. Performed By: #### L 500.4050, L501.9520, L100.0100 #### [facility] [address] [place], [address] Lymphocytes/100 WBC (Bld) 31.3 % Normal 19-41 [facility] Comment on above: Performed By: #### L 500.4050, L501.9520, L100.0100 #### [facility] [address] [place], [address] MCH (RBC) [Entitic mass] 30.1 pg Normal 27.0-32.0 [facility] Comment on above: Performed By: #### L 500.4050, L501.9520, L100.0100 #### [facility] [address] [place], [address] MCHC (RBC) [Mass/Vol] 32.3 g/dL Normal 32-36 [facility] Comment on above: Performed By: #### L 500.4050, L501.9520, L100.0100 #### [facility] [address] [place], [address] MCV (RBC) [Entitic vol] 93.2 fL Normal 81-99 [facility] Comment on above: Performed By: #### L 500.4050, L501.9520, L100.0100 #### [facility] [address] [place], [address] Monocytes/100 WBC (Bld) 5.5 % Normal 0-10 [facility] Comment on above: Performed By: #### L 500.4050, L501.9520, L100.0100 #### [facility] [address] [place], [address] Neutrophils/100 WBC (Bld) 59.0 % Normal 47-70 [facility] Comment on above: Performed By: #### L 500.4050, L501.9520, L100.0100 #### [facility] [address] [place], [address] Nucleated RBC (Bld) [#/Vol] 0 10*3/uL Normal 0-5 [facility] Comment on above: Performed By: #### L 500.4050, L501.9520, L100.0100 #### [facility] [address] [place], [address] Platelet mean volume (Bld) [Entitic vol] 11.0 fL Normal 6.2-12.0 [facility] Comment on above: Performed By: #### L 500.4050, L501.9520, L100.0100 #### [facility] [address] [place], [address] Platelets (Bld) [#/Vol] 257 10*3/uL Normal 150-450 [facility] Comment on above: Performed By: #### L 500.4050, L501.9520, L100.0100 #### [facility] [address] [place], [address] RBC (Bld) [#/Vol] 3.95 10*6/uL Low 4.2-5.4 [facility] Comment on above: Performed By: #### L 500.4050, L501.9520, L100.0100 #### [facility] [address] [place], [address] RDW SD 45.6 fl High 35.1-43.9 [facility] Comment on above: Performed By: #### L 500.4050, L501.9520, L100.0100 #### [facility] [address] [place], [address] WBC (Bld) [#/Vol] 4.7 10*3/uL Normal 4.4-11.0 [facility] Comment on above: Performed By: #### L 500.4050, L501.9520, L100.0100 #### [facility] [address] [place], [address] Carbon dioxide, total [Moles /volume] in Central venous bloodOrdered By: Maria Elena Mary on 07-23-2024 CO2 [Moles/Vol] 25.8 mmol/L 21.0-32.0 [facility] Chloride assayOrdered By: Leroy Mary on 07-23-2024 Chloride [Moles/Vol] 106 mmol/L 98-108 [facility] Comprehensive Metabolic Prof ilon 07-23-2024 Albumin [Mass/Vol] 4.2 g/dL Normal 3.4-4.8 [facility] Comment on above: Order Comment: CBCD Performed By: #### L 500.4050, L501.9520, L100.0100 #### [facility] [address] [place], [address] Albumin/Globulin [Mass ratio] 1.5 {ratio} Normal 0.9-2.4 [facility] Comment on above: Order Comment: CBCD Performed By: #### L 500.4050, L501.9520, L100.0100 #### [facility] [address] [place], [address] ALK PHOS 77 U/L Normal 35-104 [facility] Comment on above: Order Comment: CBCD Performed By: #### L 500.4050, L501.9520, L100.0100 #### [facility] [address] [place], [address] ALT [Catalytic activity/Vol] 11 U/L Normal <=34 [facility] Comment on above: Order Comment: CBCD Performed By: #### L 500.4050, L501.9520, L100.0100 #### [facility] [address] [place], [address] AST [Catalytic activity/Vol] 21 U/L Normal <=31 [facility] Comment on above: Order Comment: CBCD Performed By: #### L 500.4050, L501.9520, L100.0100 #### [facility] [address] [place], [address] Bilirubin [Mass/Vol] 0.36 mg/dL Normal 0.00-1.30 [facility] Comment on above: Order Comment: CBCD Performed By: #### L 500.4050, L501.9520, L100.0100 #### [facility] [address] [place], [address] BUN/CRE 23.8 RATIO High 10-20 [facility] Comment on above: Order Comment: CBCD Performed By: #### L 500.4050, L501.9520, L100.0100 #### [facility] [address] [place], [address] Calcium [Mass/Vol] 9.5 mg/dL Normal 7.6-11.0 [facility] Comment on above: Order Comment: CBCD Performed By: #### L 500.4050, L501.9520, L100.0100 #### [facility] [address] [place], [address] Chloride [Moles/Vol] 106 mmol/L Normal 98-108 [facility] Comment on above: Order Comment: CBCD Performed By: #### L 500.4050, L501.9520, L100.0100 #### [facility] [address] [place], [address] CO2 [Moles/Vol] 25.8 mmol/L Normal 21.0-32.0 [facility] Comment on above: Order Comment: CBCD Performed By: #### L 500.4050, L501.9520, L100.0100 #### [facility] [address] [place], [address] Creatinine [Mass/Vol] 0.86 mg/dL Normal 0.70-1.20 [facility] Comment on above: Order Comment: CBCD Performed By: #### L [id number], [id number], L100.0100 #### [facility] [address] [place], [address] GAP 9 Normal 5-15 [facility] Comment on above: Order Comment: CBCD Performed By: #### L [id number], [id number], L100.0100 #### [facility] [address] [place], [address] GFR/1.73 sq M.predicted among non-blacks MDRD (S/P/Bld) [Vol rate/Area] 67 mL/min/{1.73_m2} Normal >60 [facility] Comment on above: Order Comment: CBCD Result Comment: mL/m in/1.73m2 CKD-EPI Creatinine Equation (2020) Performed By: #### L [id number], [id number], L100.0100 #### [facility] [address] [place], [address] Globulin (S) [Mass/Vol] 2.7 g/dL Normal 2.2-4.2 [facility] Comment on above: Order Comment: CBCD Performed By: #### L [id number], [id number], L100.0100 #### [facility] [address] [place], [address] Glucose [Mass/Vol] 123 mg/dL High 70-99 [facility] Comment on above: Order Comment: CBCD Performed By: #### L [id number], [id number], L100.0100 #### [facility] [address] [place], [address] Potassium [Moles/Vol] 4.0 mmol/L Normal 3.3-5.1 [facility] Comment on above: Order Comment: CBCD Performed By: #### L [id number], [id number], L100.0100 #### [facility] [address] [place], [address] Sodium [Moles/Vol] 141 mmol/L Normal 133-145 [facility] Comment on above: Order Comment: CBCD Performed By: #### L [id number], [id number], L100.0100 #### [facility] [address] [place], [address] T PROT 6.9 g/dL Normal 5.9-8.4 [facility] Comment on above: Order Comment: CBCD Performed By: #### L [id number], [id number], L100.0100 #### [facility] [address] [place], [address] Urea nitrogen [Mass/Vol] 21 mg/dL High 4-19 [facility] Comment on above: Order Comment: CBCD Performed By: #### L [id number], [id number], L100.0100 #### [facility] [address] [place], [address] Eosinophil percentageOrdered By: Maria Elena Mary on 07-23-2024 Eosinophils/100 WBC (Bld) 3.2 % 0-5 [facility] Erythrocyte distribution wid th ratioOrdered By: Maria Elena Mary on 07-23-2024 Erythrocyte distribution width (RBC) [Ratio] 13.4 % 11.6-14.6 [facility] Erythrocyte distribution wid th standard deviationOrdered By: Maria Elena Mary on 07-23-2024 Erythrocyte distribution width (RBC) [Entitic vol] 45.6 fL High 35.1-43.9 [facility] Erythrocyte distribution width (RBC) [Ratio] 45.6 fl High 35.1-43.9 [facility] GFR/1.73 sq M.predicted facundo g non-blacks MDRD (S/P/Bld) [Vol rate/Area]Ordered By: Maria Elena Mary on 07-23-2024 Estimated GFR (MDRD) Non-Af Amer 67 >60 [facility] Comment on above: mL/min/1.73m2 CKD-EP I Creatinine Equation (2020) Glomerular filtration rate ( GFR) estimation/1.73 sq m using serum, plasma, or whole bOrdered By: Maria Elena Mary on 07-23-2024 GFR/1.73 sq M.predicted among non-blacks MDRD (S/P/Bld) [Vol rate/Area] 67 mL/min/{1.73_m2} >60 [facility] Comment on above: mL/min/1.73m2 CKD-EP I Creatinine Equation (2020) Hematocrit Auto (Bld) [Volum e fraction]Ordered By: Maria Elena Mary on 07-23-2024 Hematocrit (Bld) [Volume fraction] 36.8 % Low 37-47 [facility] Hemoglobin measurementOrdere d By: Maria Elena Mary on 07-23-2024 Hemoglobin (Bld) [Mass/Vol] 11.9 g/dL Low 12.0-15.0 [facility] Immature granulocytes/100 WB C Auto (Bld)Ordered By: Maria Elena Mary on 07-23-2024 Immature granulocytes/100 WBC (Bld) 0.400 % 0.0-0.9 [facility] Comment on above: IG% - Immature Granu locytes (promyelocytes, myelocytes and metamyelocytes) > 1% indicates that a LEFT SHIFT is Present. Laboratory - Chemistry and C hemistry - challengeOrdered By: Maria Elena Mary on 07-23-2024 AST [Catalytic activity/Vol] 21 U/L <32 [facility] Lymphocytes Auto (Unsp spec) [#/Vol]Ordered By: Maria Elena Mary on 07-23-2024 Lymphocytes (Bld) [#/Vol] 1.47 10*3/uL 0.83-4.5 1 [facility] Lymphocytes/100 WBC Auto (Un sp spec)Ordered By: Maria Elena Mary on 07-23-2024 Lymphocytes/100 WBC (Bld) 31.3 % 19-41 [facility] MCV (mean corpuscular volume ) determinationOrdered By: Maria Elena Mary on 07-23-2024 MCV (RBC) [Entitic vol] 93.2 fL 81-99 [facility] Mean corpuscular hemoglobin (MCH) determinationOrdered By: Maria Elena Mary on 07-23-2024 MCH (RBC) [Entitic mass] 30.1 pg 27.0-32.0 [facility] Mean corpuscular hemoglobin concentration (MCHC) determinationOrdered By: Maria Elena Mary on 07-23-2024 MCHC (RBC) [Mass/Vol] 32.3 g/dL 32-36 [facility] Mean platelet volume determi nationOrdered By: Maria Elena Mary on 07-23-2024 Platelet mean volume (Bld) [Entitic vol] 11.0 fL 6.2-12.0 [facility] Monocyte percentageOrdered B y: Maria Elena Mary on 07-23-2024 Monocytes/100 WBC (Bld) 5.5 % 0-10 [facility] Neutrophil percentageOrdered By: Maria Elena Mary on 07-23-2024 Neutrophils/100 WBC (Bld) 59.0 % 47-70 [facility] Nucleated red blood cell per centageOrdered By: Maria Elena Mary on 07-23-2024 Nucleated RBC/100 WBC (Bld) [Ratio] 0 % 0-5 [facility] Platelet countOrdered By: Leroy Mary on 07-23-2024 Platelets (Bld) [#/Vol] 257 10*3/uL 150-450 [facility] Potassium (Unsp spec) [Mass/ Vol]Ordered By: Maria Elena Mary on 07-23-2024 Potassium [Moles/Vol] 4.0 mmol/L 3.3-5.1 [facility] Potassium measurement (mass/ volume)Ordered By: Maria Elena Mary on 07-23-2024 Potassium (Unsp spec) [Mass/Vol] 4.0 mmol/L 3.3-5.1 [facility] RBC Auto (Bld) [#/Vol]Ordere d By: Maria Elena Mary on 07-23-2024 RBC (Bld) [#/Vol] 3.95 10*6/uL Low 4.2-5.4 [facility] Serum creatinine measurement (mass/volume)Ordered By: Maria Elena Mary on 07-23-2024 Creatinine [Mass/Vol] 0.86 mg/dL 0.70-1.20 [facility] Serum globulin measurementOr dered By: Maria Elena Mary on 07-23-2024 Globulin (S) [Mass/Vol] 2.7 g/dL 2.2-4.2 [facility] Serum glucose measurement (m ass/volume)Ordered By: Maria Elena Mary on 07-23-2024 Glucose [Mass/Vol] 123 mg/dL High 70-99 [facility] Serum or plasma alanine richard otransferase (ALT) measurementOrdered By: Maria Elena Mary on 07-23-2024 ALT [Catalytic activity/Vol] 11 U/L <35 [facility] Serum or plasma albumin sheila urement (mass/volume)Ordered By: Maria Elena Mary on 07-23-2024 Albumin [Mass/Vol] 4.2 g/dL 3.4-4.8 [facility] Serum or plasma albumin/glob ulin mass ratioOrdered By: Maria Elena Mary on 07-23-2024 Albumin/Globulin [Mass ratio] 1.5 {ratio} 0.9-2.4 [facility] Serum or plasma alkaline payton sphatase measurementOrdered By: Maria Elena Mary on 07-23-2024 ALP [Catalytic activity/Vol] 77 U/L 35-104 [facility] Serum or plasma calcium sheila urement (mass/volume)Ordered By: Maria Elena Mary on 07-23-2024 Calcium [Mass/Vol] 9.5 mg/dL 7.6-11.0 [facility] Serum or plasma urea nitroge n measurement (mass/volume)Ordered By: Maria Elena Mary on 07-23-2024 Urea nitrogen [Mass/Vol] 21 mg/dL High 4-19 [facility] Sodium levelOrdered By: Tami Mary on 07-23-2024 Sodium [Moles/Vol] 141 mmol/L 133-145 [facility] TSH DL <= 0.005 mIU/L QnOrde red By: Maria Elena Mary on 07-23-2024 Thyroid Stimulating Hormone (TSH) 1.510 uIU/mL 0.300-4.200 [facility] TSH Qn 1.510 uIU/mL 0.300-4.200 [facility] Thyroid Stim Hormone (TSH)on 07-23-2024 TSH 1.510 uIU/mL Normal 0.300-4.200 [facility] Comment on above: Performed By: #### L 500.4050, L501.9520, L100.0100 #### [facility] [address] [facility] [place], [address] Total proteinOrdered By: Ike Mary on 07-23-2024 Protein [Mass/Vol] 6.9 g/dL 5.9-8.4 [facility] White blood cell (WBC) count Ordered By: Maria Elena Mary on 07-23-2024 WBC (Bld) [#/Vol] 4.7 10*3/uL 4.4-11.0 [facility] Otheron 10-16-2007 CONVERTED ELECTRONIC SIGNATURE LUIS ARMANDO LEE M.D. (Electronic signature on file) Final Signed Out: 10/16/2007 11:43 [facility] CONVERTED FINAL DIAGNOSIS TRANSBRONCHIAL BIOPSY (RIGHT UPPER LOBE) - ALVEOLAR PARENCHYMA WITH NO INFLAMMATORY PROCESS OR OTHER DIAGNOSTIC ABNORMALITY IDENTIFIED. NEGATIVE FOR MALIGNANCY. [facility] CONVERTED ORDERING PROVIDER Ordering Provider: [facility] CONVERTED ELECTRONIC SIGNATURE SHAWN RANDALL M.D., PATHOLOGIST (Electronic signature on file) Final Signed Out: 10/16/2007 11:37 [facility] CONVERTED FINAL DIAGNOSIS DIAGNOSIS BRONCHIAL BRUSHINGS, RUL - NO MALIGNANT CELLS IDENTIFIED. NARRATIVE SCANT BRONCHIAL EPITHELIAL CELLS, BLOOD. [facility] CONVERTED ORDERING PROVIDER Ordering Provider: [facility] CONVERTED ELECTRONIC SIGNATURE SHAWN RANDALL M.D., PATHOLOGIST (Electronic signature on file) Final Signed Out: 10/16/2007 11:36 [facility] CONVERTED FINAL DIAGNOSIS DIAGNOSIS BRONCHIAL WASHING - NO MALIGNANT CELLS IDENTIFIED. [facility] CONVERTED ORDERING PROVIDER Ordering Provider: [facility] 10-04-2007 CONVERTED ELECTRONIC SIGNATURE LUIS ARMANDO LEE M.D. (Electronic signature on file) Final Signed Out: 10/04/2007 14:39 [facility] CONVERTED FINAL DIAGNOSIS DIAGNOSIS RIGHT LUNG, FNA - PAUCICELLULAR SPECIMEN UNSUITABLE FOR CYTO . NARRATIVE - FEW GROUPS OF BENIGN BRONCHIAL EPITHELIAL CELLS ONLY. [facility] CONVERTED ORDERING PROVIDER Ordering Provider: [facility] 04-10-2007 CONVERTED FINAL DIAGNOSIS A&B. LUMBAR SP INE, EXCISION - DEGENERATING FIBROCARTILAGE AND REACTIVE SYNOVIUM. [facility] CONVERTED ORDERING PROVIDER Ordering Provider: JE CHRIS [facility] Thyroidon 04-10-2007 TSH Amor ELLIS M.D., PATHOLOGIST (Electronic signature on file) Final Signed Out: 04/10/2007 15:02 [facility] Vital Signs Date Time Vital Sign Value Performing Clinician Regina márquez 12-06-2024 07:45-0400 Body height 162.[address] Maria Elena Mary MD Work Phone: [facility] 12-06-2024 07:45-0400 Body mass index (BMI) [Ratio] 20.7 kg/m2 Dr. Maria Elena Mary MD Work Phone: [facility] 12-06-2024 07:45-0400 Body weight 54.[address] Maria Elena Mary MD Work Phone: [facility] 12-06-2024 07:45-0400 Diastolic blood pressure 79 mm[Hg] Dr. Maria Elena Mary MD Work Phone: [facility] 12-06-2024 07:45-0400 Heart rate 73 /min Dr. Maria Elena Mary MD Work Phone: [facility] 12-06-2024 07:45-0400 Respiratory rate 18 /min Dr. Maria Elena Mary MD Work Phone: [facility] 12-06-2024 07:45-0400 SaO2% (BldA) [Mass fraction] 98 % Dr. Maria Elena Mary MD Work Phone: [facility] 12-06-2024 07:45-0400 Systolic blood pressure 134 mm[Hg] Dr. Maria Elena Mary MD Work Phone: [facility] 12-15-2022 10:50-0400 Body height 162.[address] Maria Elena Mary Work Phone: [facility] 12-15-2022 10:50-0400 Body mass index (BMI) [Ratio] 23.5 kg/m2 Dr. Maria Elena Mary Work Phone: [facility] 12-15-2022 10:50-0400 Body weight 62.[address] Maria Elena Mary Work Phone: [facility] 12-15-2022 10:50-0400 Diastolic blood pressure 79 mm[Hg] Dr. Maria Elena Mary Work Phone: [facility] 12-15-2022 10:50-0400 Heart rate 75 /min Dr. Maria Elena Mary Work Phone: [facility] 12-15-2022 10:50-0400 Respiratory rate 18 /min Dr. Maria Elena Mary Work Phone: [facility] 12-15-2022 10:50-0400 SaO2% (BldA) [Mass fraction] 98 % Dr. Maria Elena Mary Work Phone: [facility] 12-15-2022 10:50-0400 Systolic blood pressure 135 mm[Hg] Dr. Maria Elena Mary Work Phone: [facility] 10-21-2022 10:43-0400 Body height 162.[address] Maria Elena Mary Work Phone: [facility] 10-21-2022 10:43-0400 Body mass index (BMI) [Ratio] 23.1 kg/m2 Dr. Maria Elena Mary Work Phone: [facility] 10-21-2022 10:43-0400 Body temperature 97.7 [degF] Dr. Maria Elena Mary Work Phone: [facility] 10-21-2022 10:43-0400 Body weight 61.[address] Maria Elena Mary Work Phone: [facility] 10-21-2022 10:43-0400 Diastolic blood pressure 68 mm[Hg] Dr. Maria Elena Mary Work Phone: [facility] 10-21-2022 10:43-0400 Heart rate 86 /min Dr. Maria Elena Mary Work Phone: [facility] 10-21-2022 10:43-0400 Respiratory rate 18 /min Dr. Maria Elena Mary Work Phone: [facility] 10-21-2022 10:43-0400 SaO2% (BldA) [Mass fraction] 98 % Dr. Maria Elena Mary Work Phone: [facility] 10-21-2022 10:43-0400 Systolic blood pressure 111 mm[Hg] Dr. Maria Elena Mary Work Phone: [facility] 03-15-2022 11:00-0500 Body height 162.[address] Maria Elena Mary Work Phone: [facility] Work Phone: 03-15-2022 11:00-0500 Body weight 60.[address] Maria Elena Mary Work Phone: [facility] Work Phone: 03-15-2022 11:00-0500 Heart rate 98 /min Dr. Maria Elena Mary Work Phone: [facility] Work Phone: 03-15-2022 11:00-0500 SaO2% (BldA) [Mass fraction] 98 % Dr. Maria Elena Mary Work Phone: [facility] Work Phone: 03-08-2022 13:25-0400 Body mass index (BMI) [Ratio] 22.8 kg/m2 Dr. Maria Elena Mary Work Phone: [facility] Work Phone: 03-08-2022 13:25-0400 Body temperature 97.2 [degF] Dr. Maria Elena Mary Work Phone: [facility] Work Phone: 03-08-2022 13:25-0400 Body weight 61.[address] Maria Elena Mary Work Phone: [facility] Work Phone: 03-08-2022 13:25-0400 Diastolic blood pressure 73 mm[Hg] Dr. Maria Elena Mary Work Phone: [facility] Work Phone: 03-08-2022 13:25-0400 Heart rate 91 /min Dr. Maria Elena Mary Work Phone: [facility] Work Phone: 03-08-2022 13:25-0400 Respiratory rate 18 /min Dr. Maria Elena Mary Work Phone: [facility] Work Phone: 03-08-2022 13:25-0400 SaO2% (BldA) [Mass fraction] 97 % Dr. Maria Elena Mary Work Phone: [facility] Work Phone: 03-08-2022 13:25-0400 Systolic blood pressure 118 mm[Hg] Dr. Maria Elena Mary Work Phone: [facility] Work Phone: 02-23-2022 11:35-0400 Diastolic blood pressure 62 mm[Hg] Dr. Maria Elena Mary Work Phone: [facility] Work Phone: 02-23-2022 11:35-0400 Systolic blood pressure 132 mm[Hg] Dr. Maria Elena Mary Work Phone: [facility] Work Phone: 02-23-2022 11:35-0400 Body mass index (BMI) [Ratio] 22.6 kg/m2 Dr. Maria Elena Mary Work Phone: [facility] Work Phone: 02-23-2022 11:35-0400 Body weight 59.[address] Maria Elena Mary Work Phone: [facility] Work Phone: 02-23-2022 11:35-0400 Heart rate 80 /min Dr. Maria Elena Mary Work Phone: [facility] Work Phone: 02-23-2022 11:35-0400 Respiratory rate 18 /min Dr. Maria Elena Mary Work Phone: [facility] Work Phone: 02-23-2022 11:35-0400 SaO2% (BldA) [Mass fraction] 99 % Dr. Maria Elena Mary Work Phone: [facility] Work Phone: 12-10-2021 12:36-0400 Body height 162.[address] Maria Elena Mary Work Phone: [facility] Work Phone: 12-10-2021 12:36-0400 Body mass index (BMI) [Ratio] 22.5 kg/m2 Dr. Maria Elena Mary Work Phone: [facility] Work Phone: 12-10-2021 12:36-0400 Body temperature 97.2 [degF] Dr. Maria Elena Mary Work Phone: [facility] Work Phone: 12-10-2021 12:36-0400 Body weight 59.[address] Maria Elena Mary Work Phone: [facility] Work Phone: 12-10-2021 12:36-0400 Diastolic blood pressure 76 mm[Hg] Dr. Maria Elena Mary Work Phone: [facility] Work Phone: 12-10-2021 12:36-0400 Heart rate 81 /min Dr. Maria Elena Mary Work Phone: [facility] Work Phone: 12-10-2021 12:36-0400 Respiratory rate 16 /min Dr. Maria Elena Mary Work Phone: [facility] Work Phone: 12-10-2021 12:36-0400 SaO2% (BldA) [Mass fraction] 97 % Dr. Maria Elena Mary Work Phone: [facility] Work Phone: 12-10-2021 12:36-0400 Systolic blood pressure 139 mm[Hg] Dr. Maria Elena Mary Work Phone: [facility] Work Phone: 11-24-2021 14:09-0400 Body mass index (BMI) [Ratio] 23 kg/m2 Dr. Maria Elena Mary Work Phone: [facility] Work Phone: 11-24-2021 14:09-0400 Body weight 60.[address] Maria Elena Mary Work Phone: [facility] Work Phone: 11-24-2021 14:09-0400 Diastolic blood pressure 79 mm[Hg] Dr. Maria Elena Mary Work Phone: [facility] Work Phone: 11-24-2021 14:09-0400 Heart rate 82 /min Dr. Maria Elena Mary Work Phone: [facility] Work Phone: 11-24-2021 14:09-0400 Respiratory rate 16 /min Dr. Maria Elena Mary Work Phone: [facility] Work Phone: 11-24-2021 14:09-0400 SaO2% (BldA) [Mass fraction] 97 % Dr. Maria Elena Mary Work Phone: [facility] Work Phone: 11-24-2021 14:09-0400 Systolic blood pressure 157 mm[Hg] Dr. Maria Elena Mary Work Phone: [facility] Work Phone: Encounters Encounter Date Encounter Type Care Provider Facility Start: 01-03-2025 ambulatory Jewell Ibrahim NP Facili ty:[facility] Start: 12-31-2024 ambulatory [facility] Facility: [facility] Start: 12-14-2024 ambulatory Jewell bIrahim WIRELESS ENGINEER Facili ty:[facility] Start: 12-06-2024 End: 12-06-2024 Patient encounter procedure Jewell Ibrahim WIRELESS ENGINEER-C -[facility] Work Phone: Start: 12-06-2024 End: 12-06-[address] Maria Elena Mary MD Work Phone: -[facility] Start: 11-05-2024 Non-patient / Non-visit Dr. Ainsley hernandez MD -[facility] Work Phone: Start: 10-31-2024 End: 10-31-[address] Maria Elena Mary MD Work Phone: -[facility] Start: 10-31-2024 End: 10-31-[address] Maria Elena Mary MD -[facility] Work Phone: Start: 10-31-2024 End: 10-31-2024 ambulatory [facility] Facility:[facility] Start: 08-19-2024 End: 08-19-2024 Emergency department patient visit [facility] Facility:[facility] Start: 08-01-2024 Encounter for genera l adult medical examination without abnormal findings [facility] Start: 07-23-2024 End: 07-23-[address] Maria Elena Mary MD Work Phone: [facility] Work Phone: Start: 07-23-2024 End: 07-23-[address] Maria Elena Mary MD -Laboratory Work Phone: Start: 07-23-2024 End: 07-23-2024 ambulatory [facility] Facility:[facility] Start: 12-15-2022 End: 12-15-[address] Maria Elena Mary Work Phone: [facility] [facility] Work Phone: Start: 10-31-2022 End: 10-31-[address] Maria Elena Mary Work Phone: [facility] Work Phone: Start: 10-31-2022 End: 10-31-[address] Maria Elena Mary Work Phone: [facility] Work Phone: Start: 10-27-[address] Jennifer Mary Work Phone: [facility] Start: 10-26-2022 End: 10-26-[address] Maria Elena Mary Work Phone: [facility] Work Phone: Start: 10-26-2022 End: 10-26-[address] Maria Elena Mary Work Phone: [facility]patient [facility] Start: 10-21-2022 End: 10-21-[address] Maria Elena Mary Work Phone: [facility]Pulmonary Medicine [facility] Start: 10-11-[address] Jennifer Mary Work Phone: [facility] Start: 10-07-2022 End: 10-07-[address] Maria Elena Mary Work Phone: [facility] Work Phone: Start: 10-07-2022 End: 10-07-[address] Maria Elena Mary Work Phone: [facility]-Radiology, [facility] Start: 08-25-2022 Non-patient / Non-visit Dr. Leroy Mary Work Phone: [facility] [facility] Start: 06-21-2022 Non-patient / Non-visit Dr. Leroy Mary Work Phone: [facility] Start: 06-21-[address] Maria Elena Mary Work Phone: [facility]Cardiovascular Services Start: 03-15-2022 Non-patient / Non-visit Dr. Leroy Mary Work Phone: [facility] Start: 03-15-2022 End: 03-15-[address] Maria Elena Mary Work Phone: [facility] Work Phone: Start: 03-15-2022 End: 03-15-[address] [facility] Start: 03-12-2022 Non-patient / Non-visit Dr. Leroy Mary Work Phone: [facility] Start: 03-11-2022 End: 03-11-[address] Maria Elena Mary Work Phone: [facility] Work Phone: Start: 03-11-2022 End: 03-11-[address] Maria Elena Mary Work Phone: [facility] Services/Neurology Start: 03-08-2022 End: 03-08-[address] [facility] Start: 02-23-2022 End: 02-23-[address] Maria Elena Mary Work Phone: [facility] Start: 12-15-2021 Non-patient / Non-visit Dr. Leroy Mary Work Phone: [facility] Start: 12-15-2021 End: 12-15-[address] Maria Elena Mary Work Phone: [facility] Start: 12-10-2021 End: 12-10-[address] Maria Elena Mary Work Phone: [facility] Medicine [facility] Start: 11-24-2021 End: 11-24-[address] Maria Elena Mary Work Phone: [facility] Start: 11-17-2021 Non-patient / Non-visit Dr. Leroy Mary Work Phone: [facility] Start: 10-25-2021 End: 10-25-2021 Patient encounter procedure [facility] Start: 10-03-2007 End: 10-03-2007 Patient encounter procedure Nathan Mark Joan Work Phone: [facility] Start: 10-03-2007 Results Only Nathan Mark B carmela Work Phone: [facility] Start: 04-09-2007 End: 04-09-2007 Patient encounter procedure Je Chris Work Phone: [facility] Start: 04-09-2007 Results Only Jeeleanor alford Work Phone: [facility] Procedures Date Procedure Procedure Detail Performing Clinician Start: 10-31-2024 Screening mammography Gómez Mary MD Work Phone: Start: 10-26-2022 Screening mammography Gómez Mary Work Phone: Start: 10-07-2022 End: 10-07-20[address] examination [address] knee [address] Maria Elena Mary Work Phone: Start: 12-15-2021 Cardiovascular stres s test using pharmacologic stress agent Dr. Maria Elena Mary Work Phone: Start: 10-25-2021 Screening mammography Start: 10-15-2007 CONVERTED CYTOLOGY NON-SHEET METAL INSULATOR Nathan Mark Joan Work Phone: Start: 10-15-2007 CONVERTED SURGICAL PATHOLOGY Nathan Pateltap Joan Work Phone: Start: 10-03-2007 CONVERTED CYTOLOGY NON-SHEET METAL INSULATOR Nathan Mark Joan Work Phone: Start: 04-09-2007 CONVERTED SURGICAL PATHOLOGY Je Chris Work Phone: Plan of Treatment Date Care Activity Detail Author Start: 01-07-2020 Influenza vaccination INFLUENZA (#1) [facility] Start: 03-07-2011 PNEUMOVAX AGE 65 AND OVER WITH 5YR LOOKBACK (#1) PNEUMOVAX AGE 65 AND OVER WITH 5YR LOOKBACK (#1) [facility] Start: 2006 ADVANCE DIRECTIVE DISCUSSION ADVANCE DIRECTIVE DISCUSSION [facility] Start: 2006 BONE DENSITY BONE DENSITY [facility] Start: 11-23-1991 SHINGRIX VACCINE (1 of 2) TOURE GRIX VACCINE (1 of 2) [facility] Start: 11-23-1991 Tuberculosis screening COLOREC NESS CANCER SCREENING,SEE MODIFIER [facility] Start: 1986 DIABETES SCREEN DIABETES SCREEN [facility] Start: 1986 LIPID SCREEN LIPID SCREEN [facility] Start: 1960 Urine microalbumin profile DTAP,TDAP,TD (1 - Tdap) [facility] Start: 11-23-1959 HEPATITIS C SCREENING HEPATITIS C [facility] Basic metabolic 2008 panel with ionized calcium - Serum or Plasma [facility] Cardiac event recording [facility] CBC W Auto Different ial panel - Blood [facility] Evaluation of diagno stic study results [facility] NM Heart Views W str ess and W radionuclide IV [facility] Thyroid stimulating hormone measurement [facility] US Carotid arteries [facility] Immunizations Immunization Date Immunization Notes Care Provider Fa cility 08-03-2020 Covid (Moderna) [facility] 07-06-2020 [place] [facility] 03-07-2006 influenza virus vacc ine, unspecified formulation [facility] 03-07-2006 pneumococcal polysaccharide vaccine, 23 valent [facility] 02-10-2005 influenza virus vacc ine, unspecified formulation [facility] Payers Date Payer Category Payer Medicare [id number] 2024 Unknown [id number] 2024 Self-pay [id number] 2024 Unknown [id number] 2006 Medicare MEDICARE MEDICAR E B [id number] 2006-Present [place] Medicare [id number] 2006 Medicare [id number] 2006 Unknown [facility] INS [id number] 2006-2013 Indemnity [id number] 1941 Unknown [id number] Unknown [id number] Unknown [id number] Unknown [id number] Unknown [id number] Unknown [id number] Unknown [id number] Unknown [id number] Social History Date Type Detail Facility Start: 12-15-2005 End: 09-01-2023 Tobacco smoking status NHIS Never smoker [facility] Start: 12-15-2005 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) [facility] Sex Assigned At Not on file [facility] Start: 12-07-2020 End: 12-15-2022 Tobacco smoking status OHIS Unknown if ever smoked [facility] Start: 1940 Sex Assigned At Female W [facility] Start: 08-01-2024 Sex Female (finding) [facility] Evaluation note 12-06-2024 Note Date & Type Note Facility 12-06-2024 Evaluation note Diagnosis Onset Date Resolution Chest pain acute December 06 2:56pm Fatigue acute December 06 2:56pm Lightheadedness acute December 2:56pm CAMEJO (dyspnea on exertion) chronic December 06, 2024 2:56pm [facility] Work Phone: Evaluation note Note Date & Type Note Facility Evaluation note No assessment information availa [facility] Work Phone: Evaluation note Note Date & Type Note Facility Evaluation note Diagnosis Onset Date CAMEJO (dyspnea on exertion) ch ronic Stage 1 mild COPD by GOLD classification [facility] Work Phone: Evaluation note Note Date & Type Note Facility Evaluation note Diagnosis Onset Date CAMEJO (dyspnea on exertion) ch ronic Stage 1 mild COPD by GOLD classification chronic Elevated blood pressure reading acute CAMEJO (dyspnea on exertion) ch ronic CAMEJO (dyspnea on exertion) ch ronic Stage 1 mild COPD by GOLD classification [facility] Work Phone: Evaluation note Note Date & Type Note Facility Evaluation note Diagnosis Onset Date PND (post-nasal drip) chroni c Stage 1 mild COPD by GOLD classification [facility] Work Phone: Evaluation note Note Date & Type Note Facility Evaluation note Diagnosis Onset Date PND (post-nasal drip) chroni c Stage 1 mild COPD by GOLD classification chronic CAMEJO (dyspnea on exertion) bettie arcenio [facility] Work Phone: Reason for referral (narrative) Note Date & Type Note Facility Reason for referral (narrative) No reason for referral information available [facility] Work Phone: History of Past Illness Problem Noted Date Resolved Date RESPIRATORY ABNORM NEC 01/19/2006 6 Chief Complaint and Reason for Visit Chief Complaint SCREENING Chief Complaint SCREENING Amb Documentation CP/SOB 1 Y FU DYSPNEA Reason for Visit CAMEJO (dyspnea on exer tion) Stage 1 mild COPD by GOLD classification Chief Complaint CP/SOB 1 Y FU DYSPNEA 3 M FU 3 M FU OBSTRUCTIVE PULMONARY DISEASE OBSTRUCTIVE PULMONARY DISEASE OBSTRUCTIVE PULMONARY DISEASE OBSTRUCTIVE PULMONARY DISEASE Reason for Visit CAMEJO (dyspnea on exer tion) Stage 1 mild COPD by GOLD classification Elevated blood pressure reading CAMEJO (dyspnea on exertion) CAMEJO (dyspnea on exertion) Stage 1 mild COPD by GOLD classification Chief Complaint SCREENING Amb Documentation SPONDYLOSIS W/MYELOPATHY LUMBAR/RX HERE Chief Complaint Amb Documentation 6 M FU SCREENING SPONDYLOSIS W/MYELOPATHY LUMBAR/RX HERE Reason for Visit PND (post-nasal drip ) Stage 1 mild COPD by GOLD classification Chief Complaint 6 M FU SCREENING SPONDYLOSIS W/MYELOPATHY LUMBAR/RX HERE 6 M FU Reason for Visit PND (post-nasal drip ) Stage 1 mild COPD by GOLD classification CAMEJO (dyspnea on exertion) Chief Complaint Admit Date SCREENING October 31, 2024 11:3 5am Chief Complaint Admit Date SCREENING October 31, 2024 11:3 5am LEG SWELLING/FATIQUE December 06, 2024 2: 56pm Reason for Visit Admit Date Chest pain December 06, 2024 2:5 6pm Fatigue December 06, 2024 2:5 6pm Lightheadedness December 06, 2024 2:5 6pm CAMEJO (dyspnea on exertion) December 06 2:56pm Family History No Family History Records Found Relationship Condition Age at Onset Recorded Date/T nat[place] grandmother Hypertension Unknown Congestive heart failure Unknown daughter Unknown grandfather Malignant neoplasm of lung Unknown Alcohol abuse Unknown father Alcohol abuse Unknown Malignant neoplasm of lung Unknown sister Coronary artery disease Unknown brother Suicide Unknown son Suicide Unknown Hepatitis C virus infection Unknown Intravenous drug user Unknown aunt Cardiac disease Unknown Malignant neoplasm of breast Unknown Malignant neoplasm of urinary bladder Unk nown uncle Cardiac disease Unknown Hypertension Unknown Malignant neoplasm Unknown mother Malignant neoplasm of urinary bladder Unk nown brother Coronary artery disease Unknown brother Cardiac disease Unknown Diabetes mellitus Unknown Feeling angry Unknown sister Hypertension Unknown Cardiac disease Unknown Arthritis Unknown sister Malignant neoplasm of breast Unknown son Diabetes mellitus Unknown son Hypertension Unknown daughter Rheumatoid arthritis Unknown Migraine headache Unknown Cerebrovascular accident (CVA) Unknown Advance Directives No Advanced Directives Records Found Advance Directive Response Recorded Date/ Time Living Will Yes May 05 8:39pm Power of Coating Manager Yes May 05, 2018 8:39pm Advance Directive Response Recorded Date/ Time Living Will Yes May 05 7:39pm Power of Coating Manager Yes May 05, 2018 7:39pm Summary Purpose Additional Source Comments Source Comments (unrecognize d section and content) In the event this informatio n is protected by the Federal Confidentiality of Alcohol and Drug Abuse Patient Records regulations: The Federal rules restrict any use of the information to criminally investigate or prosecute any alcohol or drug abuse patient.[facility] Goals (unrecognized section and content) Goals may be documented in a n alternate sectionGoals may be documented in an alternate sectionGoals may be documented in an alternate sectionGoals may be documented in an alternate sectionGoals may be documented in an alternate sectionGoals may be documented in an alternate sectionGoals may be documented in an alternate sectionGoals may be documented in an alternate sectionGoals may be documented in an alternate sectionGoals may be documented in an alternate section Care Teams (unrecognized sec tion and content) Team Status: Active Member Role Status Dates Dr. Shawn Perez MD Family Provider Active Dr. Maria Elena Mary MD Primary Care Provider Active Team Status: Active Member Role Status Dates Dr. Maria Elena Mary MD Primary Care Provider Active Dr. Erik Bautista MD Attending Provider Active Team Status: Active Member Role Status Dates Dr. Maria Elena Mary MD Primary Care Provider Active Salvatore Valenzuela Attending Provider Active Team Status: Active Member Role Status Dates Dr. Maria Elena Mary MD Primary Care Provider Active Self Referred Attending Provider Active Team Status: Active Member Role Status Dates Dr. Maria Elena Mary MD Primary Care Prov ider, Attending Provider, Referring Provider Active Team Status: Inactive Member Role Status Dates Dr. Maria Elena Mary MD Primary Care Prov ider, Attending Provider, Referring Provider Active Team Status: Inactive Member Role Status Dates Dr. Maria Elena Mary MD Primary Care Provider, Referrin g Provider Active Kaykay Parr WIRELESS ENGINEER, WIRELESS ENGINEER-C Attending Provider Active Team Status: Inactive Member Role Status Dates Dr. Maria Elena Mary MD Primary Care Provider, Referrin g Provider Active Jewell Ibrahim WIRELESS ENGINEER, WIRELESS ENGINEER-C Attending Provider Active Team Status: Inactive Member Role Status Dates Dr. Maria Elena Mary MD Primary Care Provider Active Start: July 23, 2024 End: July 23, 2024 Dr. Maria Elena Mary MD Attending Provider Active Start: July 23, 2024 End: July 23, 2024 Dr. Maria Elena Mary MD Referring Provider Active Start: July 23, 2024 End: July 23, 2024 Team Status: Active Member Role/Relationship Status Dates Dr. Maria Elena Mary MD Primary Care Provider Active Team Status: Inactive Member Role/Relationship Status Dates Dr. Maria Elena Mary MD Primary Care Provider Active Start: July 23, 2024 End: July 23, 2024 Dr. Maria Elena Mary MD Attending Provider Active Start: July 23, 2024 End: July 23, 2024 Dr. Maria Elena Mary MD Referring Provider Active Start: July 23, 2024 End: July 23, 2024 Team Status: Inactive Member Role/Relationship Status Dates Dr. Maria Elena Mary MD Primary Care Provider Active Start: October 31, 2024 End: October 31, 2024 Dr. Maria Elena Mary MD Attending Provider Active Start: October 31, 2024 End: October 31, 2024 Dr. Maria Elena Mary MD Referring Provider Active Start: October 31, 2024 End: October 31, 2024 Team Status: Inactive Member Role/Relationship Status Dates Dr. Maria Elena Mary MD Primary Care Provider Active Start: October 31, 2024 End: October 31, 2024 Dr. Maria Elena Mary MD Attending Provider Active Start: October 31, 2024 End: October 31, 2024 Dr. Maria Elena Mary MD Referring Provider Active Start: October 31, 2024 End: October 31, 2024 Team Status: Inactive Member Role/Relationship Status Dates Dr. Maria Elena Mary MD Primary Care Provider Active Start: November 05, 2024 Dr. Ainsley Pan MD Attending Provider Active Start: November 05, 2024 Team Status: Inactive Member Role/Relationship Status Dates Dr. Maria Elena Mary MD Primary Care Provider Active Start: December 06, 2024 End: December 06, 2024 Dr. Maria Elena Mary MD Referring Provider Active Start: December 06, 2024 End: December 06, 2024 Jewell Ibrahim NP, WIRELESS ENGINEER-C Attending Provider Active Start: December 06, 2024 End: December 06, 2024 INFORMATION SOURCE (unrecogn ized section and content) DATE CREATED AUTHOR 08/24/2024 [facility] DATE CREATED AUTHOR AUTHOR'S ORGANIZ ATION 01/02/2025 [facility] FOR RECORDS PERTAINING TO PATIENTS WHO ARE OR HAVE BEEN ENROLLED IN A CHEMICAL DEPENDENCY/SUBSTANCEABUSE PROGRAM, SOME INFORMATION MAY BE OMITTED. This clinical summary was aggregated from multiple sources. Caution should be exercised in using it in the provision of clinical care. This summary normalizes information from multiple sources, and as a consequence, information in this document may materially change the coding, format and clinical context of patient data. In addition, data may be omitted in some cases. CLINICAL DECISIONS SHOULD BE BASED ON THE PRIMARY CLINICAL RECORDS. [employer] provides no warranty or guarantee of the accuracy or completeness of information in this document.
--- NOTE | 2025-01-03 06:19 | CDU_ITS ---
Reason For Study Reason For Study: Lightheadedness Rt. Velocities/BP Lt. Velocities/BP Prox CCA 74/17.3 cm/sec. Prox CCA 69.2/8.8 cm/sec. Mid CCA 70.2/12.6 cm/sec. Mid CCA 75.9/17.3 cm/sec. Dist CCA 59.8/12.6 cm/sec. Dist CCA 59.8/11.6 cm/sec. Prox ICA 51.7/11.6 cm/sec. Prox ICA 64.8/16 cm/sec. Mid ICA 82.5/20.1 cm/sec. Mid ICA 81.4/16.8 cm/sec. Dist ICA 99.2/30 cm/sec. Dist ICA 106.5/20.6 cm/sec. Rt. ICA/CCA = 1.41. Lt. ICA/CCA = 1.40. Prox ECA 45.6 cm/sec. Prox ECA 35.2 cm/sec. Rt. Vert. 43.7/6.9 cm/sec. Lt. Vert. 60.5/11.4 cm/sec. Right Extracranial There is intimal thickening but no significant atherosclerotic plaque noted in the right common carotid artery. There is intimal thickening but no significant atherosclerotic plaque noted in the right internal carotid artery. There is intimal thickening but no significant atherosclerotic plaque noted in the right external carotid artery. Antegrade flow is noted in the right vertebral artery. Left Extracranial There is intimal thickening but no significant atherosclerotic plaque noted in the left common carotid artery. There is intimal thickening but no significant atherosclerotic plaque noted in the left internal carotid artery. There is intimal thickening but no significant atherosclerotic plaque noted in the left external carotid artery. Antegrade flow is noted in the left vertebral artery. Procedure Carotid Duplex 27095. This is a Carotid Duplex examination using B-mode, color flow and specral Doppler. Exam performed in department. VL/Carotid Duplex Ultrasound Interpretation Summary Normal right extracranial internal carotid. Normal left extracranial internal carotid. Patent and antegrade vertebrals bilaterally. Ordering Physician: Jewell Ibrhaim Referring Physician: Maria Elena Mary Performed By: Carmen Sylvester RVT
[2025-01-03 07:15] LABS: Hematocrit 36.7 % (37-47); Hemoglobin 12.1 g/dL (12.0-15.0); Immature Granulocytes Count 0.030 X10^3/uL (0.0-0.0); Mean Corp Hgb Conc 33.0 g/dL (32-36); Mean Corpuscular Volume 92.7 fL (81-99); Mean Platelet Vol. 10.5 fl (6.2-12.0); NRBC Flagged by Analyzer 0 % (0-5); Platelet Count 251 K/mm3 (150-450); RBC Distribution Width CV 13.2 % (11.6-14.6); RBC Distribution Width SD 45.1 fl (35.1-43.9); Red Blood Count 3.96 M/mm3 (4.2-5.4); White Blood Count 4.2 K/mm3 (4.4-11.0)
[2025-01-03 07:41] LABS: Anion Gap 11 (5-15); BUN 20 mg/dL (4-19); BUN/Creat Ratio 26.4 RATIO (10-20); Calcium,Total 9.3 mg/dL (7.6-11.0); Carbon Dioxide 24.9 mmol/L (21.0-32.0); Chloride 107 mmol/L (98-108); Glucose 108 mg/dL (70-99); Potassium 4.3 mmol/L (3.3-5.1)
--- NOTE | 2025-01-06 14:34 | STRESSREP ---
Stress Test Report Pharmacologic myocardial perfusion stress test. 84-year-old female with a history of chest pain. Resting EKG demonstrates normal sinus with a rate of 71 bpm. Resting blood pressure is 122/72 mmHg. 0.4 mg of regadenoson was infused per usual protocol followed by rapid intravenous saline flush injection. Continuous EKG monitoring was performed. The maximum heart rate was 106 bpm which was 77% of max impacted heart rate the maximum workload was 1 metabolic equivalent. At rest there were no ST or T wave changes noted to suggest ischemia and at peak infusion nonspecific ST changes were noted which did not meet the criteria for ischemia. No clinical angina is noted. The final blood pressure was 126/62 mmHg. Myocardial perfusion protocol. 11.6 mCi of technetium 99m sestamibi was injected at rest. 0.4 mg of regadenoson was infused per usual protocol. At peak infusion 35.1 mCi of technetium 99m sestamibi was injected stress images were obtained stress and rest images were reconstructed and compared in the short axis vertical long and horizontal long axis. Gated images were also obtained. Perfusion SPECT analysis: Review of the stress images demonstrate normal uptake of tracer noted in all areas of the myocardium. The resting images similar demonstrated normal uptake of tracer noted in all areas of the myocardium. No areas of reversibility are noted to suggest ischemia and no previous infarct is noted. Gated SPECT analysis: The gated ejection fraction is 82%. Conclusion: Normal pharmacologic myocardial perfusion stress test. Preserved ejection fraction.
== END | disposition home or self-care (01) ==
LOC: CVS 05:56
PROVIDERS: PCP Family Medicine; Referring Provider Nurse Practitioner Gerontology; Visit Provider Nurse Practitioner Gerontology
DX: R42 Dizziness and giddiness (principal); R07.9 Chest pain, unspecified; R53.83 Other fatigue
CPT/HCPCS: 36415; 78452; 80048; 84443; 85025; 93017; 93880; A9500; A4216; J2785